=== PATIENT | female | born 1950 | race Caucasian/White ===

== ENCOUNTER 2020-01-23 09:52 | Outpatient (REF) | payer MEDICARE, MEDICAID, SELFPAY ==
[2020-01-23 12:47] LABS: Alanine Aminotransferase 20 U/L (0-31); Albumin Level 4.2 g/dL (3.5-5.0); Alkaline Phosphatase 75 U/L (39-117); Anion Gap 12 (12-20); Aspartate Amino Transferase 19 U/L (5-31); Bilirubin Total 0.5 mg/dL (0.0-1.0); Blood Urea Nitrogen 13 mg/dL (9-16); Calcium 9.7 mg/dL (8.4-10.2); Carbon Dioxide 29 mmol/L (22-29); Chloride 104 mmol/L (96-108); Cholesterol 193 mg/dL; Estimated Glomerular Filt Rate > 60; Glucose Random 88 mg/dL (60-115); HDL Cholesterol 49 mg/dL; LDL Cholesterol Calculated 129 mg/dl; Sodium 141 mmol/L (135-145); Total Protein 7.1 g/dL (6.5-8.0); Triglycerides 77 mg/dL
[2020-01-23 13:11] LABS: Rheumatoid Factor < 15.0 IU/mL (<15.0)
[2020-01-23 14:08] LABS: Erythrocyte Sedimentation Rate 4 MM/HR (0-20)
[2020-01-25 18:27] LABS: Anti Nuclear Antibody Screen NEGATIVE (NEGATIVE)
== END 2020-01-23 09:53 | disposition home or self-care (01) ==
LOC: HO.LAB 09:52
PROVIDERS: PCP Internal Medicine; Visit Provider Internal Medicine
DX: M79.7 Fibromyalgia (principal); E78.00 Pure hypercholesterolemia, unspecified; Z91.14 Patient's other noncompliance with medication regimen
CPT/HCPCS: 36415; 80053; 80061; 85652; 86038; 86039; 86431

== ENCOUNTER 2020-04-04 10:04 | Outpatient (REF) | payer MEDICARE, MEDICAID, SELFPAY ==
[2020-04-04 10:49] LABS: MANUAL DIFF FLAG NO
[2020-04-04 10:53] LABS: Basophils Percent Auto 0.3 % (0-2); Eosinophils Absolute Auto 0.2 X10*3/uL (0.0-0.4); Eosinophils Percent Auto 3.4 % (0-4); Hematocrit 41.7 % (37-47); Hemoglobin 13.2 g/dl (12.0-16.0); Imm Gran Abs Auto 0.01 X10*3/uL (0.00-0.03); Imm Gran Pct Auto 0.2 % (0.0-0.4); Lymphocytes Absolute Auto 1.8 X10*3/uL (1.2-4.9); Lymphocytes Percent Auto 30.2 % (20-40); Mean Corpuscular HGB Conc 31.7 g/dl (31.0-35.0); Mean Corpuscular Hemoglobin 27.7 pg (27.0-33.0); Mean Corpuscular Volume 87.6 fL (80-98); Mean Platelet Volume 10.9 fL (9.4-12.3); Monocytes Absolute Auto 0.4 X10*3/uL (0.1-1.2); Monocytes Percent Auto 7.1 % (2-11); Neutrophils Absolute Auto 3.4 X10*3/uL (2.0-8.3); Neutrophils Percent Auto 58.8 % (45-73); Platelet Count 264 X10*3/uL (160-400); Red Blood Count 4.76 X10*6/uL (4.20-5.50); Red Cell Distribution Width 12.5 % (11.0-16.0); White Blood Count 5.8 X10*3/uL (4.8-10.8)
[2020-04-04 11:16] LABS: Alanine Aminotransferase 20 U/L (0-31); Albumin Level 4.2 g/dL (3.5-5.0); Alkaline Phosphatase 70 U/L (39-117); Anion Gap 11 (12-20); Aspartate Amino Transferase 22 U/L (5-31); Bilirubin Total 0.5 mg/dL (0.0-1.0); Blood Urea Nitrogen 12 mg/dL (9-16); Calcium 9.8 mg/dL (8.4-10.2); Carbon Dioxide 30 mmol/L (22-29); Chloride 106 mmol/L (96-108); Estimated Glomerular Filt Rate > 60; Glucose Random 92 mg/dL (60-115); Potassium 4.8 mmol/l (3.3-5.1); Sodium 142 mmol/L (135-145)
== END 2020-04-04 10:05 | disposition home or self-care (01) ==
LOC: HO.LAB 10:04
PROVIDERS: PCP Internal Medicine; Visit Provider Internal Medicine
DX: I10 Essential (primary) hypertension (principal); J45.909 Unspecified asthma, uncomplicated; M79.671 Pain in right foot
CPT/HCPCS: 36415; 80053; 85025

== ENCOUNTER → 2020-05-10 08:53 | Outpatient (BNVA) | payer MEDICARE, MEDICAID, SELFPAY | PROVIDERS: PCP Internal Medicine; Visit Provider Student in an Organized Health Care Education/Training Program | DX: M75.81 Other shoulder lesions, right shoulder (principal) | CPT/HCPCS: 99212 ==

== ENCOUNTER 2020-05-20 10:54 | Outpatient (REF) | payer MEDICARE, MEDICAID, SELFPAY ==
--- NOTE | ~2020-05-20 | MM_ITS ---
EXAMINATION: MM SCREENING DIGITAL BREAST TOMOSYNTHESIS, BILATERAL CLINICAL INFORMATION: Screening. Asymptomatic. The lifetime risk of breast cancer based on the Tyrer-Cuzick Model is 2%. COMPARISON: Mammography: 02/21/2019, 01/21/2018, 01/08/2017 TECHNIQUE: Digital breast tomosynthesis is performed in both the craniocaudal and mediolateral oblique views along with computer-aided detection (CAD). Synthesized 2D images are generated from the tomosynthesis. FINDINGS: There are scattered areas of fibroglandular density (ACR BI-RADS breast composition Category b). There are no significant masses, abnormal calcifications, or other abnormalities. Breast tissue composition borders on predominantly fatty. There are no significant changes. The skin contours are smooth. MM/MM tomosynthesis screening BI IMPRESSION: No mammographic evidence of malignancy. ASSESSMENT: BI-RADS 1: Negative RECOMMENDATION: Routine annual mammography screening. This patient's information was entered into a reminder system with a target due date for their next mammogram.
== END 2020-05-20 10:55 | disposition home or self-care (01) ==
LOC: HO.MAMMO 10:54
PROVIDERS: PCP Internal Medicine; Visit Provider Internal Medicine
DX: Z12.31 Encounter for screening mammogram for malignant neoplasm of breast (principal)
CPT/HCPCS: 77063; 77067

== ENCOUNTER 2020-05-20 12:59 | Outpatient (REF) | payer MEDICARE, MEDICAID, SELFPAY | END 2020-05-20 13:00 | disposition home or self-care (01) | LOC: HO.LAB 12:59 | PROVIDERS: PCP Internal Medicine; Visit Provider Internal Medicine | DX: Z20.822 Contact with and (suspected) exposure to COVID-19 (principal) | CPT/HCPCS: 36415; C9803; U0003; U0005 ==

== ENCOUNTER 2020-06-06 11:57 | Outpatient (REF) | payer MEDICARE, MEDICAID, SELFPAY | END 2020-06-06 11:58 | disposition home or self-care (01) | LOC: HO.LAB 11:57 | PROVIDERS: Visit Provider Internal Medicine | DX: Z20.822 Contact with and (suspected) exposure to COVID-19 (principal) | CPT/HCPCS: 36415; C9803; U0003; U0005 ==

== ENCOUNTER 2020-07-17 10:22 | Outpatient (REF) | payer MEDICARE, MEDICAID, SELFPAY ==
[2020-07-17 10:54] LABS: COVID-19 Test Negative (Negative); IDNOW Serial# 55D5AD1C
== END 2020-07-17 10:23 | disposition home or self-care (01) ==
LOC: HO.LAB 10:22
PROVIDERS: Visit Provider Internal Medicine
DX: Z20.822 Contact with and (suspected) exposure to COVID-19 (principal)
CPT/HCPCS: 36415; 87635; C9803

== ENCOUNTER 2020-08-13 10:00 | Outpatient (RCR) | payer MEDICARE, MEDICAID, SELFPAY | END 2021-04-07 08:03 | disposition home or self-care (01) | LOC: HO.PT 10:00 | PROVIDERS: Visit Provider Podiatrist Foot & Ankle Surgery | DX: S92.811S Other fracture of right foot, sequela (principal); S99.921S Unspecified injury of right foot, sequela; M79.671 Pain in right foot | CPT/HCPCS: 97110; 97140; 97161; 97530 ==

== ENCOUNTER 2020-09-05 12:31 | Outpatient (REF) | payer MEDICARE, MEDICAID, SELFPAY | END 2020-09-05 12:32 | disposition home or self-care (01) | LOC: HO.LAB 12:31 | PROVIDERS: Visit Provider Internal Medicine | DX: Z20.822 Contact with and (suspected) exposure to COVID-19 (principal) | CPT/HCPCS: C9803; U0003; U0005 ==

== ENCOUNTER 2020-09-06 11:00 | Outpatient (RCR) | payer MEDICARE, MEDICAID, SELFPAY ==
--- NOTE | 2020-06-07 11:12 | MHC.PT.EP ---
[facility] [place] Office [place] Office [place] Office [address] [phone] F: [phone] F: [phone] F: [phone] F: [phone] Physical Therapy Plan of Care Date of Evaluation: 06/07/20 Date of Surgery: NA Diagnosis: R shoulder pain Assessment: Jenny is a 70 year old female was referred to PT for R shoulder pain following a fall about a year back. Examination reveals 8/10 pain in R shoulder at rest and with movements, TTP over cervical spine, R UE and R medial border of scapula, decreased shoulder and cervical ROM, decreased muscle strength and altered posture. These impairments are limiting with her ADLS- she has been modifying the way she performs them due to pain. Pt's symptoms suggestive of possible cervical derangement. She would benefit from therapy to decrease pain, improve ROM, increase muscle strength and postural correction so as to enable her to return to activities like dressing, cleaning, cooking and grocery shopping without pain. Frequency and Duration: The patient will be seen 2/week for 5 weeks Short Term Goals: 1. Pt will have 50% decrease in pain which will enable her to tolerate sitting for 30 minutes in 2 weeks. 2. Pt will have all shoulder ROM WNL so as to enable to her dress without modifications in 3 weeks. Systems Analyst Engineer Goals: 1. Pt will be able to perform self care activities like dressing, combing her pain with a pain no more than 2/10 on 4 weeks. 2. Pt will return to PLOF and be independent with all ADLS in 5 weeks. Treatment Plan: Modalities to reduce pain, spasms and effusion. Manual therapy to restore motion and function. Therapeutic exercise to improve strength and flexibility. Neuromuscular re-education for posture and balance. Therapeutic activities to return to functional activities of daily living. Electronically signed by: Marcela Lai DPT Please sign and return to therapist. Thank you for your referral.
--- NOTE | 2020-09-28 13:30 | MHC.PT.DC ---
[facility] [place] Office [place] Office [place] Office [address] Aniceto Dorantes [address] [phone] F: [phone] F: [phone] F: [phone] F: [phone] Physical Therapy Discharge Report Diagnosis: R shoulder pain Date of Surgery: NA Date of Evaluation: 06/07/20 Date of Discharge: 09/28/20 Treatments to Date: 19 Cancellations to Date: 0 No Shows to Date: 0 Discharge Status: Improved Function Independent with HEP Discharge Summary: Jenny has made tremendous progress and is independent with her HEPs. She is aware of exercises needed for symptom management. Jenny is going to [place] for a month and half. Due to this she has been d/c from therapy and was advised to continue performing her HEP for symptom management and maintenance. Electronically signed by: Marcela Lai PT DPT Please sign and return to therapist. Thank you for your referral.
== END 2020-09-28 13:31 | disposition home or self-care (01) ==
LOC: HO.PT 11:00
PROVIDERS: PCP Internal Medicine; Visit Provider Student in an Organized Health Care Education/Training Program
DX: M75.81 Other shoulder lesions, right shoulder (principal)
CPT/HCPCS: 97012; 97110; 97112; 97140; 97161

== ENCOUNTER 2020-11-20 10:56 | Outpatient (REF) | payer MEDICARE, MEDICAID, SELFPAY ==
[2020-11-20 12:00] LABS: MANUAL DIFF FLAG NO
[2020-11-20 12:09] LABS: Basophils Percent Auto 0.3 % (0-2); Eosinophils Absolute Auto 0.3 X10*3/uL (0.0-0.4); Eosinophils Percent Auto 4.7 % (0-4); Hematocrit 44.2 % (37-47); Imm Gran Abs Auto 0.02 X10*3/uL (0.00-0.03); Imm Gran Pct Auto 0.3 % (0.0-0.4); Lymphocytes Percent Auto 35.2 % (20-40); Mean Corpuscular HGB Conc 31.7 g/dl (31.0-35.0); Mean Corpuscular Hemoglobin 27.8 pg (27.0-33.0); Mean Corpuscular Volume 87.9 fL (80-98); Mean Platelet Volume 11.4 fL (9.4-12.3); Monocytes Absolute Auto 0.5 X10*3/uL (0.1-1.2); Neutrophils Percent Auto 51.5 % (45-73); Platelet Count 275 X10*3/uL (160-400); Red Blood Count 5.03 X10*6/uL (4.20-5.50); Red Cell Distribution Width 12.3 % (11.0-16.0); White Blood Count 5.8 X10*3/uL (4.8-10.8)
[2020-11-20 12:55] LABS: Alanine Aminotransferase 25 U/L (0-31); Albumin Level 4.2 g/dL (3.5-5.0); Alkaline Phosphatase 79 U/L (39-117); Anion Gap 12 (12-20); Aspartate Amino Transferase 17 U/L (5-31); Bilirubin Total 0.6 mg/dL (0.0-1.0); Blood Urea Nitrogen 15 mg/dL (9-16); Calcium 10.1 mg/dL (8.4-10.2); Carbon Dioxide 30 mmol/L (22-29); Chloride 104 mmol/L (96-108); Cholesterol 196 mg/dL; Estimated Glomerular Filt Rate > 60; Glucose Random 91 mg/dL (60-115); HDL Cholesterol 51 mg/dL; LDL Cholesterol Calculated 129 mg/dl; Potassium 4.7 mmol/L (3.3-5.1); Sodium 141 mmol/L (135-145); Total Protein 7.2 g/dL (6.5-8.0); Triglycerides 81 mg/dL
== END 2020-11-20 10:57 | disposition home or self-care (01) ==
LOC: HO.LAB 10:56
PROVIDERS: PCP Internal Medicine; Visit Provider Internal Medicine
DX: Z00.00 Encounter for general adult medical examination without abnormal findings (principal); E78.00 Pure hypercholesterolemia, unspecified; I10 Essential (primary) hypertension; R74.01 Elevation of levels of liver transaminase levels; Z86.010 Personal history of colon polyps
CPT/HCPCS: 36415; 80053; 80061; 85025

== ENCOUNTER → 2021-02-13 11:06 | Outpatient (BNVA) | payer MEDICARE, MEDICAID, SELFPAY | PROVIDERS: PCP Internal Medicine; Referring Provider Internal Medicine; Visit Provider Nurse Practitioner | DX: D12.6 Benign neoplasm of colon, unspecified (principal) | CPT/HCPCS: 99202 ==

== ENCOUNTER 2021-04-08 10:29 | Outpatient (REF) | payer MEDICARE, MEDICAID, SELFPAY ==
[2021-04-08 13:52] LABS: Binax Internal Control QC Valid; Binax Lot number: 9864; Binax Now Covid-19 Ag Negative (Negative)
== END 2021-04-08 10:30 | disposition home or self-care (01) ==
LOC: HO.LAB 10:29
PROVIDERS: Visit Provider Internal Medicine
DX: Z20.822 Contact with and (suspected) exposure to COVID-19 (principal)
CPT/HCPCS: 36415

== ENCOUNTER 2021-05-28 07:33 | Outpatient (REF) | payer MEDICARE, MEDICAID, SELFPAY ==
--- NOTE | ~2021-05-28 | MM_ITS ---
EXAMINATION: MM SCREENING DIGITAL BREAST TOMOSYNTHESIS, BILATERAL CLINICAL INFORMATION: Screening. Asymptomatic. The lifetime risk of breast cancer based on the Tyrer-Cuzick Model is 3%. COMPARISON: Mammography: 01/17/2021, 02/21/2019, 01/21/2018 TECHNIQUE: Digital breast tomosynthesis is performed in both the craniocaudal and mediolateral oblique views along with computer-aided detection (CAD). Synthesized 2D images are generated from the tomosynthesis. FINDINGS: There are scattered areas of fibroglandular density (ACR BI-RADS breast composition Category b). Breast tissue composition borders on predominantly fatty. There are no significant masses, abnormal calcifications, or other abnormalities. Parenchymal pattern is similar to prior studies. There is no developing density or architectural abnormality. The axilla and skin contours are unremarkable. No significant changes. MM/MM tomosynthesis screening BI IMPRESSION: No mammographic evidence of malignancy. ASSESSMENT: BI-RADS 1: Negative RECOMMENDATION: Routine annual mammography screening. This patient's information was entered into a reminder system with a target due date for their next mammogram.
== END 2021-05-28 07:34 | disposition home or self-care (01) ==
LOC: HO.MAMMO 07:33
PROVIDERS: Visit Provider Internal Medicine
DX: Z12.31 Encounter for screening mammogram for malignant neoplasm of breast (principal)
CPT/HCPCS: 77063; 77067

== ENCOUNTER 2021-06-05 10:32 | Outpatient (REF) | payer MEDICARE, MEDICAID, SELFPAY ==
[2021-06-05 11:04] LABS: MANUAL DIFF FLAG NO
[2021-06-05 11:12] LABS: Basophils Percent Auto 0.3 % (0-2); Eosinophils Absolute Auto 0.2 X10*3/uL (0.0-0.4); Eosinophils Percent Auto 2.4 % (0-4); Hematocrit 44.5 % (37.0-47.0); Hemoglobin 13.8 g/dl (12.0-16.0); Imm Gran Abs Auto 0.03 X10*3/uL (0.00-0.03); Imm Gran Pct Auto 0.5 % (0.0-0.4); Lymphocytes Absolute Auto 1.9 X10*3/uL (1.2-4.9); Lymphocytes Percent Auto 31.4 % (20-40); Mean Corpuscular Hemoglobin 27.3 pg (27.0-33.0); Mean Corpuscular Volume 88.1 fL (80.0-98.0); Mean Platelet Volume 10.1 fL (9.4-12.3); Monocytes Absolute Auto 0.4 X10*3/uL (0.1-1.2); Monocytes Percent Auto 7.1 % (2-11); Neutrophils Absolute Auto 3.6 x10*3/uL (2.0-8.3); Neutrophils Percent Auto 58.3 % (45-73); Platelet Count 248 X10*3/uL (160-400); Red Blood Count 5.05 X10*6/uL (4.20-5.50); White Blood Count 6.2 X10*3/uL (4.8-10.8)
[2021-06-05 12:00] LABS: Alanine Aminotransferase 18 U/L (0-31); Albumin Level 4.1 g/dL (3.5-5.0); Alkaline Phosphatase 79 U/L (39-117); Anion Gap 8 (12-20); Aspartate Amino Transferase 19 U/L (5-31); Bilirubin Total 0.6 mg/dL (0.0-1.0); Blood Urea Nitrogen 12 mg/dL (9-16); Carbon Dioxide 32 mmol/L (22-29); Chloride 105 mmol/L (96-108); Cholesterol 189 mg/dL; Estimated Glomerular Filt Rate > 60; Glucose Random 92 mg/dL (60-115); HDL Cholesterol 53 mg/dL; LDL Cholesterol Calculated 126 mg/dl; Potassium 4.9 mmol/L (3.3-5.1); Sodium 140 mmol/L (135-145); Total Protein 7.2 g/dL (6.5-8.0); Triglycerides 54 mg/dL
== END 2021-06-05 10:33 | disposition home or self-care (01) ==
LOC: HO.LAB 10:32
PROVIDERS: PCP Internal Medicine; Visit Provider Internal Medicine
DX: E78.00 Pure hypercholesterolemia, unspecified (principal); I10 Essential (primary) hypertension; J45.909 Unspecified asthma, uncomplicated; M25.511 Pain in right shoulder
CPT/HCPCS: 36415; 80053; 80061; 85025

== ENCOUNTER 2021-07-24 11:00 | Outpatient (RCR) | payer MEDICARE, MEDICAID, SELFPAY ==
[2021-05-27 10:10] VITALS: BP 173/79; PULSE 65
== END 2021-07-24 12:04 | disposition home or self-care (01) ==
LOC: HO.PT 11:00
PROVIDERS: Visit Provider Podiatrist Foot & Ankle Surgery
DX: M79.671 Pain in right foot (principal); M20.31 Hallux varus (acquired), right foot
CPT/HCPCS: 97110; 97112; 97140; 97161; 97530

== ENCOUNTER 2021-09-02 11:37 | Day surgery (SDC) | payer MEDICARE, MEDICAID, SELFPAY ==
[2021-09-02 12:22] VITALS: BMI 26.9
--- NOTE | 2021-09-02 12:25 | MHC.SHP ---
Pre-Procedural Eval Section A Date of Service: 09/02/21 Section B Chief Complaint: benign neoplasm of colon Relevant Family History (Specify if Yes): No Relevant Social History: None Present Medications: see Short Stay Collaborative assessment Medical History: Significant History (Asthma Fibromyalgia Osteopenia Rotator cuff tendinitis Depression Hypertension Insomnia History of tubular adenomas) History of Previous Operations: Relevant previous surgery/procedure and date(s) ( Hysterectomy Tubal ligation) Allergies: Allergies Allergy/AdvReac Type Severity Reaction Status Date / Time lisinopril Allergy Intermediate cough Verified 08/28/21 11:33 zolpidem [Ambien] Allergy Intermediate droggy Verified 08/28/21 11:33 Review of Systems Sugical H&P ROS: Negative: Constitution, Cardiovascular, Respiratory, Neurological, Psychiatric, Hem-Onc, Allergic/Immunologic, Gastrointestinal, Genitourinary, Musculoskeletal, Integumentary, Endocrine and Eyes/Ears/Nose/Throat Exam Surgical H&P Exam: Normal: HEENT, Normal: Heart, Normal: Lungs, Normal: Extremities, Normal: Abdomen, Normal: Skin and Normal: Neurological Plan Diagnosis/Plan: Unchanged I have reviewed the history and physical and performed a pertinent physical examination on my patient. No changes have occurred unless specified.
[2021-09-02 12:36] VITALS: BP 156/68; PULSE 57; RESP 18; TEMP 36.5; O2SAT 96
--- NOTE | 2021-09-02 14:08 | P.OP_ITS ---
Operative Note Operative Note Date of Service: 09/02/21 Narrative: Operative Information Procedure Description: Colonoscopy Indication: colon screening, hx of colon polyps Anesthesia: MAC COLONOSCOPY Instrument: Olympus variable stiffness pediatric scope 190L Colonoscopy Monitoring: Vital signs and clinical assessment, continuous EKG monitoring, Pulse oximetry, Carbon Dioxide monitoring and blood pressure monitoring were done throughout the procedure. Colon withdrawal time was 9 minutes. Procedure: The patient was placed in the left lateral decubitis position and pre-procedure medications were administered. After a digital rectal examination of the ano-rectum, the video colonoscope was inserted into the rectum and advanced through the colon to the cecum/TI. The colonoscope was slowly withdrawn in a retrograde panoramic fashion and the colon mucosa was carefully examined including a retroflexed view of the rectum. Findings and interventions are described below. Procedure Difficulty: easy Findings: Terminal Ileum-normal Cecum:x 2 sessile polyps 10 mm, one removed with cold snare and the other with cold forceps Ascending Colon: x1 sessile polyp 7-9 mm removed with cold forceps Transverse Colon -normal Descending Colon: x1 sessile polyp 8-10 mm removed with cold snare Sigmoid Colon: moderate diverticulosis Rectum: Retroflexion with small internal hemorrhoids, grade I Anorectum - normal Colon preparation: [place] Bowel Preparation Scale Right colon; 2 Transverse colon: 2 Left colon; 2 (0 = Unprepared colon segment with mucosa not seen due to solid stool that cannot be cleared. 1 = Portion of mucosa of the colon segment seen, but other areas of the colon segment not well seen due to staining, residual stool and/or opaque liquid. 2 = Minor amount of residual staining, small fragments of stool and/or opaque liquid, but mucosa of colon segment seen well. 3 = Entire mucosa of colon segment seen well with no residual staining, small fragments of stool or opaque liquid) Impression and Post Procedure Diagnosis: polyps internal hemorrhoids diverticular disease Plan: High fiber diet leaflet Avoid straining at stool, epsom salts and sitz bath, anusol supps or cream Repeat Colonoscopy in 3 years due to polyps or earlier if clinically indicated Above findings were reviewed with the patient and relevant handouts were provided if indicated.
--- NOTE | 2021-09-02 14:08 | PM.OP ---
Brief Operative Note Date of Service: 09/02/21 Pre-op diagnosis: colon screening, hx of polyps Post-op diagnosis: same Procedure: see op note Surgeon: Kaela Tristan MD Anesthesia: MAC Was an Fabric Worker Leader used for this Procedure?: No Estimated blood loss (mL): 0 Condition: stable Disposition: PACU
--- NOTE | 2021-09-02 14:18 | P.CONAN_ITS ---
HPI - Anesthesia Eval Consult details Narrative: 71 female for colonoscopy [facility] Active Problems Active Problems: All Active Problems (Updated 08/28/21 @ 11:33 by Anastasiia Luke RN) Right rotator cuff tendonitis (Acute) Tubular adenoma of colon (Acute) HTN (hypertension), benign (Acute) Depression (Acute) Insomnia (Acute) Past Medical History Medical History (Updated 08/28/21 @ 11:33 by Anastasiia Luke RN) Asthma Fibromyalgia GERD (gastroesophageal reflux disease) History of depression Osteopenia Family History Family History Mother Diabetes HTN (hypertension) Alzheimer disease Family history of problems with anesthesia: No Surgical History Surgical History (Updated 08/28/21 @ 11:33 by Anastasiia Luke RN) H/O foot surgery Hx of section Hx of colonoscopy Hx of esophagogastroduodenoscopy Hx of hysterectomy Hx of tubal ligation History of Problems with Anesthesia: No Social History Social History (Updated 05/10/20 @ 09:05 by Sharri Reagan CMA) Alcohol intake: current Patient Tobacco Use Status: Never used Tobacco Use of substances other than those prescribed or required for medical reasons: No Have you been hit, kicked, punched, or otherwise hurt by someone within the past year? If so, by whom?: No Advance Directives: No Advance Directives Information Provided: Yes Nutrition Risks: No Nutritional Risk Meds Allergies Allergy/AdvReac Type Severity Reaction Status Date / Time lisinopril Allergy Intermediate cough Verified 08/28/21 11:33 zolpidem [Ambien] Allergy Intermediate droggy Verified 08/28/21 11:33 Home Medications Medication Instructions Recorded Confirmed Last Taken Type hydrochlorothiazide 12.5 mg tablet 12.5 mg PO DAILY 05/10/20 08/28/21 Unknown History ibuprofen 600 mg tablet 600 mg PO Q8H PRN 05/10/20 08/28/21 Unknown History losartan 50 mg tablet 50 mg PO DAILY 05/10/20 08/28/21 Unknown History omeprazole 40 mg capsule,delayed 40 mg PO DAILY 05/10/20 08/28/21 Unknown History release albuterol sulfate 90 mcg/actuation 0 mcg INHALATION 02/13/21 Unknown History aerosol inhaler fluticasone 250 mcg-salmeterol 50 1 ea INHALATION BID 02/13/21 08/28/21 Unknown History mcg/dose blistr powdr for inhalation (John Zimmer) hydroxyzine HCl 25 mg tablet 25 mg PO TID 02/13/21 08/28/21 Unknown History amlodipine 5 mg tablet 1 tab PO DAILY 08/28/21 08/28/21 Unknown History fluticasone propionate 110 2 puff PO BID 08/28/21 08/28/21 Unknown History mcg/actuation HFA aerosol inhaler (Flovent HFA) Exam Exam Date and Time: September 02, 2021 1418 Height,Weight and Vital Signs: Height 5 ft 3 in Weight 152 lb Last Vital Signs Temp 97.7 F 09/02/21 12:36 Pulse 57 09/02/21 12:36 Resp 18 09/02/21 12:36 BP 156/68 H 09/02/21 12:36 Pulse Ox 96 09/02/21 12:36 Airway Mallampati Class: II TM Dist: >3cm Neck ROM: Full Loose/Missing/Broken Teeth: Yes Assessment and Plan Assessment Anesthesia Assessment: Anesthesia Plan Discussed and Chart Reviewed Final Anesthetic Review Family History of Problems with Anesthesia: No History of Problems with Anesthesia: No NPO: Yes ASA Class: II Final Preanesthetic Review: No Changes in Pt Med Stat, Meds/Allgs Chart Reviewed, Consent Obtained/Reviewed and Anes Risks/Benef Reviewed Patient Risk: Low Procedure Risk: Low Anesthetic Plan Anesthetic Plan: MAC: Disposition: Standard PACU
[2021-09-02 14:44] VITALS: BP 97/49; PULSE 58; RESP 16; TEMP 36.6; O2SAT 98
[2021-09-02 15:00] VITALS: BP 119/57; PULSE 57; RESP 16; O2SAT 97
[2021-09-02 15:15] VITALS: BP 122/51; PULSE 51; RESP 16; O2SAT 97
[2021-09-02 15:30] VITALS: BP 135/52; PULSE 52; RESP 16; TEMP 36.6; O2SAT 98
== END 2021-09-02 16:01 | disposition home or self-care (01) ==
PROVIDERS: PCP Internal Medicine; Visit Provider Internal Medicine Gastroenterology
PROC: 0DJD8ZZ Inspection of Lower Intestinal Tract, Via Natural or Artificial Opening Endoscopic (ICD-10-PCS; CPT 45378; principal; 2021-09-02 12:50)
DX: Z12.11 Encounter for screening for malignant neoplasm of colon (principal); Z86.010 Personal history of colon polyps; D12.0 Benign neoplasm of cecum; D12.2 Benign neoplasm of ascending colon; D12.4 Benign neoplasm of descending colon; K57.30 Diverticulosis of large intestine without perforation or abscess without bleeding; K64.0 First degree hemorrhoids; J45.909 Unspecified asthma, uncomplicated; I10 Essential (primary) hypertension; M79.7 Fibromyalgia; M85.80 Other specified disorders of bone density and structure, unspecified site; G47.00 Insomnia, unspecified; F32.A Depression, unspecified; Z79.51 Long term (current) use of inhaled steroids; Z79.899 Other long term (current) drug therapy; Z88.8 Allergy status to other drugs, medicaments and biological substances
CPT/HCPCS: 45385; 45380; 88305

== ENCOUNTER 2021-09-10 11:00 | Outpatient (RCR) | payer MEDICARE, MEDICAID, SELFPAY | END 2021-11-06 07:49 | disposition home or self-care (01) | LOC: HO.PT 11:00 | PROVIDERS: PCP Internal Medicine; Visit Provider Internal Medicine | DX: M25.511 Pain in right shoulder (principal) | CPT/HCPCS: 97110; 97140; 97162 ==

== ENCOUNTER → 2021-09-18 08:52 | Outpatient (BNVA) | payer MEDICARE, MEDICAID, SELFPAY | PROVIDERS: PCP Internal Medicine; Visit Provider Nurse Practitioner | DX: D12.6 Benign neoplasm of colon, unspecified (principal) | CPT/HCPCS: 99212 ==

== ENCOUNTER 2021-09-25 11:28 | Outpatient (REF) | payer OTHER, SELFPAY ==
--- NOTE | ~2021-09-25 | XR_ITS ---
EXAMINATION: XR SHOULDER, RIGHT XR CERVICAL SPINE CLINICAL INFORMATION: Pain. COMPARISON: None TECHNIQUE: Right shoulder 4 views. Cervical spine 5 views. FINDINGS: CERVICAL SPINE: There is normal cervical lordosis. The vertebral heights and alignment appear normal. There is loss of C4-C5, C5-C6. On oblique views of the neural foramina are patent. No lytic or sclerotic process seen. The prevertebral soft tissues are normal. Right shoulder: The there is no visible acute fracture, dislocation or subluxation seen. No bony erosive changes. No loose bodies. The soft tissues are normal. XR/XR cervical spine min 6V IMPRESSION: Degenerative disc changes C3-C4, C4-C5 disc levels with mild cervical spondylosis. No visible acute fracture or dislocation seen. Unremarkable right shoulder exam
--- NOTE | ~2021-09-25 | XR_ITS ---
EXAMINATION: XR SHOULDER, RIGHT XR CERVICAL SPINE CLINICAL INFORMATION: Pain. COMPARISON: None TECHNIQUE: Right shoulder 4 views. Cervical spine 5 views. FINDINGS: CERVICAL SPINE: There is normal cervical lordosis. The vertebral heights and alignment appear normal. There is loss of C4-C5, C5-C6. On oblique views of the neural foramina are patent. No lytic or sclerotic process seen. The prevertebral soft tissues are normal. Right shoulder: The there is no visible acute fracture, dislocation or subluxation seen. No bony erosive changes. No loose bodies. The soft tissues are normal. XR/XR shoulder RT min 2V IMPRESSION: Degenerative disc changes C3-C4, C4-C5 disc levels with mild cervical spondylosis. No visible acute fracture or dislocation seen. Unremarkable right shoulder exam
== END 2021-09-25 11:29 | disposition home or self-care (01) ==
LOC: HO.XRAY 11:28
PROVIDERS: PCP Family Medicine; Visit Provider Family Medicine
DX: M25.511 Pain in right shoulder (principal); M54.2 Cervicalgia
CPT/HCPCS: 72052; 73030

== ENCOUNTER 2021-09-30 13:50 | Outpatient (REF) | payer OTHER, SELFPAY ==
--- NOTE | ~2021-09-30 | XR_ITS ---
EXAMINATION: XR FOOT, LEFT CLINICAL INFORMATION: Pain COMPARISON: None TECHNIQUE: AP, lateral, and oblique views of the left foot. FINDINGS: Bone alignment is normal. No fracture or dislocation is seen. Joint spaces are normal. There are calcaneal spurs. XR/XR foot LT min 3V IMPRESSION: Calcaneal spurs otherwise unremarkable exam
--- NOTE | ~2021-09-30 | MM_ITS ---
EXAMINATION: BONE DENSITOMETRY CLINICAL INDICATION: Specified disorders of bone density and structure. COMPARISON: Previous BD dated 01/21/2018 and baseline BD dated 04/12/2009. TECHNIQUE: Using a [employer] DXA System (software version: 13.1) manufactured by [employer], dual-energy x-ray absorptiometry was performed of the lumbar spine and left hip. The images are of good technical quality. Summary results are attached. FINDINGS: AP SPINE L1-L3 (excluding L4): The data of L1-L4 has been changed to exclude the L4 vertebral body, because degenerative changes at this level may cause overestimation of lumbar spine density. Current: BMD 0.930 g/cm2, Z-score -0.4, T-score -2.0, osteopenia, 3.6% decrease from previous, 7.8% decrease from baseline (<5% change is not significant). Prior: BMD 0.965 g/cm2. Baseline: BMD 1.009 g/cm2. LEFT FEMUR, NECK: Current: BMD 0.770 g/cm2, Z-score -0.3, T-score -1.9, osteopenia. Prior: BMD 0.774 g/cm2. Baseline: BMD 0.895 g/cm2. LEFT FEMUR, TOTAL: Current: BMD 0.869 g/cm2, Z-score 0.3, T-score -1.1, osteopenia, 4.5% decrease from previous, 12.8% decrease from baseline (<5% change is not significant). Prior: BMD 0.910 g/cm2. Baseline: BMD 0.997 g/cm2. IDENTIFIED RISK FACTORS: Early menopause, secondary osteoporosis, bilateral oophorectomy. HISTORY OF FRACTURE: None listed. MEDICATIONS: None listed. MM/XR DEXA axial skeleton IMPRESSION: 1. DIAGNOSIS: Osteopenia based on the lowest T-score value of -2.0 in the lumbar spine applying World Health Organization criteria. 2. 10-YEAR FRACTURE RISK PREDICTION, FRAX: Major osteoporotic fracture (clinical spine, forearm, hip or shoulder) 6.8%. Hip fracture 1.4%. 3. Treatment Recommendations: NOF guidelines recommend consideration for treatment in postmenopausal women and men age 50 and older presenting with the following: -A hip or vertebral (clinical or morphometric) fracture. -T-score less than or equal to -2.5 at the femoral neck or spine after appropriate evaluation to exclude secondary causes. -Low bone mass at the hip or spine and a 10-year fracture probability by FRAX of greater than or equal to 3% for hip fracture or greater than or equal to 20% for major osteoporotic fracture based on the [place] adapted WHO algorithm. 4. Other Recommendations: All treatment decisions require clinical judgment and consideration of individual patient factors, including patient preferences, comorbidities, previous drug use, risk factors not captured in the FRAX model (e.g. frailty, falls, vitamin D deficiency, increased bone turnover, interval significant decline in bone density) and possible under or overestimation of fracture risk by FRAX. Additional medical evaluation for secondary cause of low bone mineral density may be appropriate. FUTURE SCAN RECOMMENDATION: People with diagnosed cases of osteoporosis or at high risk for fracture should have regular bone mineral density tests. For patients eligible for Medicare, routine testing is allowed once every 2 years. The testing frequency can be increased to one year for patients who have rapidly progressing disease, those who are receiving or discontinuing medical therapy to restore bone mass, or have additional risk factors.
== END 2021-09-30 13:51 | disposition home or self-care (01) ==
LOC: HO.MAMMO 13:50
PROVIDERS: Absent Provider Emergency Medicine; PCP Family Medicine; Visit Provider Family Medicine
DX: Z13.820 Encounter for screening for osteoporosis (principal); M79.672 Pain in left foot; M85.80 Other specified disorders of bone density and structure, unspecified site; Z78.0 Asymptomatic menopausal state
CPT/HCPCS: 73630; 77080

== ENCOUNTER 2021-11-10 15:23 | Outpatient (REF) | payer OTHER, SELFPAY ==
--- NOTE | ~2021-11-10 | XR_ITS ---
EXAMINATION: XR ANKLE, LEFT CLINICAL INFORMATION: Left ankle pain COMPARISON: Previous x-ray April 2019 TECHNIQUE: AP, lateral, and mortise views of the left ankle. FINDINGS: Bone alignment is normal. No fracture or dislocation is seen. The ankle mortise is normal. There are large calcaneal spurs. XR/XR ankle LT min 3V IMPRESSION: Large calcaneal spurs.
== END 2021-11-10 15:24 | disposition home or self-care (01) ==
LOC: HO.XRAY 15:23
PROVIDERS: Absent Provider Family Medicine; PCP Family Medicine; Visit Provider Emergency Medicine
DX: M25.572 Pain in left ankle and joints of left foot (principal)
CPT/HCPCS: 73610

== ENCOUNTER 2021-12-29 15:09 | Outpatient (REF) | payer OTHER, SELFPAY ==
--- NOTE | ~2021-12-29 | XR_ITS ---
EXAMINATION: XR ANKLE, RIGHT XR FOOT, RIGHT CLINICAL INFORMATION: Contusion. Fall 2 days ago. COMPARISON: None TECHNIQUE: AP, lateral, and mortise views of the right ankle and AP, lateral, and oblique views of the right foot. FINDINGS: RIGHT ANKLE: There is soft tissue swelling at the ankle with an ankle joint effusion. No fracture or malalignment. The ankle mortise is symmetric. Soft tissues are edematous. Small enthesopathic spurs are present at the Achilles tendon insertion and plantar fascial origin on the calcaneus. Calcium deposition is evident within the plantar fascia proximally. Subtalar and talocrural joint spaces appear well preserved. RIGHT FOOT: Diffuse soft tissue swelling at the foot. There is medial subluxation of the hallux proximal phalanx at the MTP joint with resultant widening of the 1st interspace. A small metallic fragment is evident within the lateral margin of the 1st metatarsal head, possibly a soft tissue anchor. There is a 6 mm chronic osseous fragment at the lateral margin of the hallux proximal phalangeal base. There is mild osteoarthritis in the 1st MTP joint with nonuniform joint space narrowing and marginal osteophytes. MTP joints are otherwise well preserved. There is mild multifocal osteoarthritis in the interphalangeal joints, most pronounced at the 3rd toe DIP joint. TMT joints and naviculocuneiform joints are unremarkable. No erosions. XR/XR ankle RT 2V IMPRESSION: Diffuse soft tissue swelling in the ankle and foot. No acute fractures. Medial subluxation of the hallux proximal phalanx at the MTP joint, raising the possibility of a lateral collateral ligament injury. Metal fragment in the lateral aspect of the 1st metatarsal head and a chronic osseous fragment at the lateral margin of the proximal phalangeal base suggest prior ligamentous injury and/or repair in this region. 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
== END 2021-12-29 15:10 | disposition home or self-care (01) ==
LOC: HO.XRAY 15:09
PROVIDERS: Absent Provider Family Medicine; PCP Family Medicine; Visit Provider Emergency Medicine
DX: S90.01XS Contusion of right ankle, sequela (principal); X58.XXXD Exposure to other specified factors, subsequent encounter
CPT/HCPCS: 73600; 73620

== ENCOUNTER 2022-01-06 12:55 | Outpatient (REF) | payer OTHER, SELFPAY ==
--- NOTE | ~2022-01-06 | XR_ITS ---
EXAMINATION: XR KNEE, RIGHT CLINICAL INFORMATION: Pain. COMPARISON: None TECHNIQUE: Four views of the right knee. FINDINGS: There is mild loss of medial and patellofemoral compartment joint space. The lateral compartment joint space is maintained normal. No visible acute fracture, dislocation or subluxation seen. There is periarticular spurring in the right lateral patella. The soft tissues are normal. XR/XR knee RT 4V IMPRESSION: Mild degenerative changes medial and patellofemoral compartment. No visible acute fracture, dislocation or subluxation seen.
== END 2022-01-06 12:56 | disposition home or self-care (01) ==
LOC: HO.XRAY 12:55
PROVIDERS: PCP Family Medicine; Visit Provider Family Medicine
DX: M25.561 Pain in right knee (principal)
CPT/HCPCS: 73564

== ENCOUNTER 2022-01-15 14:17 | Outpatient (REF) | payer OTHER, SELFPAY ==
--- NOTE | ~2022-01-15 | CT_ITS ---
EXAMINATION: CT HEAD WITHOUT CONTRAST CLINICAL INFORMATION: Status post fall, dizziness COMPARISON: None TECHNIQUE: Contiguous axial imaging was performed from the skull base to vertex without intravenous administration of contrast. This CT examination was performed using dose optimization techniques as appropriate, variously including the following: *Automated exposure control *Adjustment of mA and/or kV according to patient size (this includes techniques or standardized protocols for targeted exams where dose is matched to indication/reason for exam; i.e. extremities or head) *Use of iterative reconstruction technique DLP: 716 mGy-cm FINDINGS: There is a left frontoparietal low-density subdural fluid collection with scattered areas of hyperdense areas consistent with hemorrhage. The findings as a subacute on chronic left subdural hematoma. Mild mass effect seen on the left frontal cortical sulci. There is no midline shift. The carver to white matter differentiation is maintained normal. The lateral ventricles are symmetrical in size and configuration but slightly enlarged. Bone windows reveal no calvarial abnormality. Bilateral paranasal sinuses and mastoid air cells are well-aerated. CT/CT head/brain wo IV con IMPRESSION: Left frontoparietal acute on chronic subdural hematoma. No mass effect or midline shift. Results called to Tierra Milan by phone in ED at 3:20 PM.
== END 2022-01-15 14:18 | disposition home or self-care (01) ==
LOC: HO.CT 14:17
PROVIDERS: Visit Provider Family Medicine
DX: S09.90XD Unspecified injury of head, subsequent encounter (principal); Z91.81 History of falling
CPT/HCPCS: 70450

== ENCOUNTER 2022-01-15 14:54 | Emergency (ER) | payer OTHER, SELFPAY ==
--- NOTE | 2022-01-15 07:17 | ECG_ITS ---
Test Reason : HEAD BLLED Blood Pressure : / mmHG Vent. Rate : 062 BPM Atrial Rate : 062 BPM P-R Int : 184 ms QRS Dur : 090 ms QT Int : 412 ms P-R-T Axes : 020 -40 -04 degrees QTc Int : 418 ms Normal sinus rhythm Left anterior fascicular block Inferior leads Moderate voltage criteria for LVH, may be normal variant ( R in aVL , Catalino product ) Nonspecific ST abnormality Abnormal ECG No significant changes seen Referred By: Jenifer Ayers Electronically Signed By:JOSE FERMIN MD
[2022-01-15 14:59] VITALS: BP 178/76; PULSE 78; RESP 18; TEMP 36.4; O2SAT 98; BMI 27.1
--- NOTE | 2022-01-15 15:09 | ED.FALL ---
HPI - Fall General Chief Complaint: Stroke Stated Complaint: STROKE Time Seen by Provider: 01/15/22 15:03 Source: patient and overhauler History of Present Illness HPI Narrative: 71-year-old female without significant past medical history other than hypertension is referred over from the outpatient imaging suite when she was noted to have a subdural hematoma on CT scan. On questioning the patient she states that she was on a cruise on 12/27 and dancing when she slipped and fell backwards striking her head without loss of consciousness. Since that time patient states that she has had a bump on her scalp and has been attempting to get an head CT for almost 3 weeks. Patient states he finally got her appointment for CT scan and denies any episodes of headache, visual disturbances, dizziness, right-sided numbness/tingling. Patient states she has had some right ankle pain and right hip pain since the incident. Related Data Home Medications Medication Instructions Recorded Confirmed hydrochlorothiazide 12.5 mg tablet 12.5 mg PO DAILY 05/10/20 08/28/21 omeprazole 40 mg capsule,delayed 40 mg PO DAILY 05/10/20 08/28/21 release albuterol sulfate 90 mcg/actuation 0 mcg inhalation 02/13/21 aerosol inhaler fluticasone 250 mcg-salmeterol 50 1 ea inhalation BID 02/13/21 08/28/21 mcg/dose blistr powdr for inhalation (John Inhkenneth) amlodipine 5 mg tablet 1 tab PO DAILY 08/28/21 08/28/21 fluticasone propionate 110 2 puff PO BID 08/28/21 08/28/21 mcg/actuation HFA aerosol inhaler (Flovent HFA) acetaminophen 500 mg tablet 500 mg PO Q6H PRN 09/18/21 Allergies Allergy/AdvReac Type Severity Reaction Status Date / Time lisinopril Allergy Intermediate cough Verified 09/18/21 09:03 zolpidem [Ambien] Allergy Intermediate droggy Verified 09/18/21 09:03 Review of Systems Review of Systems: Pertinent positives and negatives as stated in HPI 10 point review of systems is otherwise negative. [facility] Past Medical History Source: nursing notes reviewed Medical History Asthma Fibromyalgia GERD (gastroesophageal reflux disease) History of depression Osteopenia Surgical History H/O foot surgery Hx of section Hx of colonoscopy Hx of esophagogastroduodenoscopy Hx of hysterectomy Hx of tubal ligation Family History Family History Mother Diabetes HTN (hypertension) Alzheimer disease Social History Social History Alcohol intake: current Patient Tobacco Use Status: Never used Tobacco Advance Directives: No Advance Directives Information Provided: No Physical Exam Vital Signs: Vital Signs: Last Vital Signs Temp 97.6 F 01/15/22 14:59 Pulse 78 01/15/22 14:59 Resp 18 01/15/22 14:59 BP 178/76 H 01/15/22 14:59 Pulse Ox 98 01/15/22 14:59 O2 Del Method 01/15/22 14:59 BMI result Body Mass Index 27.1 VITAL SIGNS: Reviewed. GENERAL: Well developed, well nourished, in no acute distress. HEAD: Normocephalic/atraumatic EYES: PERRLA, EOMI EARS: Ext canals without abnormality OROPHARYNX: no oral lesions noted, posterior pharynx clear LUNGS: Normal breath sounds. No adventitious sounds or accessory muscle use. SpO2<98> CARDIOVASCULAR: Regular rate and rhythm without noted murmurs ABDOMEN: Soft, non-tender, non-distended with bowel sounds. MUSCULOSKELETAL: No tenderness, deformities, or effusions noted on gross inspection. EXTREMITIES: No cyanosis, clubbing or edema. SKIN: Inspection of the skin reveals no rashes NEUROLOGIC: Alert and oriented x 4. Strength and sensation to light touch were grossly intact x 4, no facial asymmetry, no pronator drift, cranial nerves 2-12 are grossly intact. Course Course Course Narrative: 71-year-old female with history and clinical presentation which demonstrate a left frontoparietal acute on chronic subdural hematoma without mass effect or midline shift. Patient does not have any neurologic deficits at this time. I discussed the case with [facility] who accepts transfer as consult, all imaging was transferred over to [facility]. Patient is otherwise hemodynamically stable. MDM - Fall Lab Data Result diagrams: 01/15/22 15:23 01/15/22 15:23 Labs: Lab Results 01/15/22 Range/Units 15:23 WBC 9.8 (4.8-10.8) X10*3/uL RBC 4.84 (4.20-5.50) X10*6/uL Hgb 13.3 (12.0-16.0) g/dl Hct 41.5 (37.0-47.0) % MCV 85.7 (80.0-98.0) fL MCH 27.5 (27.0-33.0) pg MCHC 32.0 (31.0-35.0) g/dl RDW 12.2 (11.0-16.0) % Plt Count 282 (160-400) X10*3/uL MPV 10.4 (9.4-12.3) fL Immature Gran % (Auto) 0.3 (0.0-0.4) % Neut % (Auto) 55.8 (45-73) % Lymph % (Auto) 31.3 (20-40) % [place] % (Auto) 6.7 (2-11) % Eos % (Auto) 5.6 H (0-4) % Baso % (Auto) 0.3 (0-2) % Lymph # (Auto) 3.1 (1.2-4.9) X10*3/uL [place] # (Auto) 0.7 (0.1-1.2) X10*3/uL Eos # (Auto) 0.6 H (0.0-0.4) X10*3/uL Baso # (Auto) 0.0 (0.0-0.2) X10*3/uL Abs Immat Gran (auto) 0.03 (0.00-0.03) X10*3/uL Absolute Neuts (auto) 5.4 (2.0-8.3) x10*3/uL Absolute Nucleated RBC 0.000 (0.0-0.012) X10*3/uL Nucleated RBC % (auto) 0.0 (0.0-0.2) /100WBC ECG Data Attestation: I personally reviewed and interpreted this ECG as follows: Prior ECG tracings: not available for review Interpretation: Normal sinus rhythm, HR-62, no STEMI, SC/QRS/QTC is within normal limits. Critical Care Time Critical Care Time Critical Care Time: Yes Total Critical Care Time: 30 Attestation: I personally attest to this time spent taking care of the patient. Discharge Plan Discharge Clinical Impression: Acute subdural hematoma, Chronic subdural hematoma Patient Disposition: er [facility] Transfer Details: Acute on chronic subdural hematoma Prescriptions: No Action amlodipine 5 mg tablet 1 tab PO DAILY Flovent HFA 110 mcg/actuation HFA aerosol inhaler 2 puff PO BID hydrochlorothiazide 12.5 mg tablet 12.5 mg PO DAILY omeprazole 40 mg capsule,delayed release(DR/EC) 40 mg PO DAILY albuterol sulfate 90 mcg/actuation HFA aerosol inhaler 0 mcg inhalation fluticasone propion-salmeterol [Wixela Inhub] 250-50 mcg/dose blister with device 1 ea inhalation BID acetaminophen 500 mg tablet 500 mg PO Q6H PRN
[2022-01-15 15:29] LABS: MANUAL DIFF FLAG NO
--- NOTE | 2022-01-15 15:30 | PC.NURSE ---
patient assessed with use of certified court/medical interpreter primary Guamanian speaking only . patient presents to ED after receiving images at out patient CT for increased memory loss and headaches after after that happened on December 29 . patient is a/ox4 . pearrla . heart rate is regular at 68 bear=ts per minute .lungs clear . skin pink warm and dry . abdomen soft non tender with positive bowel sounds in all quadrants . IV placed in left AC . Labs drawn and sent to lab . Neurological assessment done no signs of deficient noted . patient ambulates with use of walker . patient aware of plan of care .
[2022-01-15 15:31] LABS: Basophils Percent Auto 0.3 % (0-2); Eosinophils Absolute Auto 0.6 X10*3/uL (0.0-0.4); Eosinophils Percent Auto 5.6 % (0-4); Hematocrit 41.5 % (37.0-47.0); Hemoglobin 13.3 g/dl (12.0-16.0); Imm Gran Abs Auto 0.03 X10*3/uL (0.00-0.03); Imm Gran Pct Auto 0.3 % (0.0-0.4); Lymphocytes Absolute Auto 3.1 X10*3/uL (1.2-4.9); Lymphocytes Percent Auto 31.3 % (20-40); Mean Corpuscular Hemoglobin 27.5 pg (27.0-33.0); Mean Corpuscular Volume 85.7 fL (80.0-98.0); Mean Platelet Volume 10.4 fL (9.4-12.3); Monocytes Absolute Auto 0.7 X10*3/uL (0.1-1.2); Monocytes Percent Auto 6.7 % (2-11); Neutrophils Absolute Auto 5.4 x10*3/uL (2.0-8.3); Neutrophils Percent Auto 55.8 % (45-73); Platelet Count 282 X10*3/uL (160-400); Red Blood Count 4.84 X10*6/uL (4.20-5.50); Red Cell Distribution Width 12.2 % (11.0-16.0); White Blood Count 9.8 X10*3/uL (4.8-10.8)
[2022-01-15 15:36] LABS: Prothrombin Time 10.9 SEC (10.0-13.1)
[2022-01-15 15:39] LABS: Partial Thromboplastin Time 30.6 SEC (26.0-36.4)
[2022-01-15 15:43] LABS: Anion Gap 14 (12-20); Blood Urea Nitrogen 16 mg/dL (9-16); Calcium 9.4 mg/dL (8.4-10.2); Carbon Dioxide 25 mmol/L (22-29); Chloride 106 mmol/L (96-108); Creatinine Clr Calc Pharmacy 58.1; Estimated Glomerular Filt Rate > 60; Glucose Random 111 mg/dL (60-115); Potassium 3.8 mmol/L (3.3-5.1); Sodium 141 mmol/L (135-145)
[2022-01-15 15:52] LABS: COVID-19 Test Negative (Negative); IDNOW Serial# 9DB6401D
[2022-01-15 15:59] VITALS: BP 144/72; PULSE 66; RESP 18; O2SAT 97
[2022-01-15 16:03] VITALS: BP 136/61; PULSE 64; RESP 16; O2SAT 96
--- NOTE | 2022-01-15 16:10 | PC.NURSE ---
Report given to staple side laster for [facility] for transfer to [facility] ED . patient aware of plan of care .
== END 2022-01-15 16:20 | disposition short-term general hospital (02) ==
PROVIDERS: Emergency Medicine; Emergency Provider Student in an Organized Health Care Education/Training Program; PCP Family Medicine
DX: S06.5X0A Traumatic subdural hemorrhage without loss of consciousness, initial encounter (principal); W18.39XA Other fall on same level, initial encounter; I10 Essential (primary) hypertension; Y93.41 Activity, dancing; Y92.814 Boat as the place of occurrence of the external cause; Y99.8 Other external cause status; Z20.822 Contact with and (suspected) exposure to COVID-19; Z79.899 Other long term (current) drug therapy
CPT/HCPCS: 36415; 80048; 85025; 85610; 85730; 87635; 93005; 99285

== ENCOUNTER 2022-02-11 11:54 | Outpatient (REF) | payer OTHER, SELFPAY ==
--- NOTE | ~2022-02-11 | XR_ITS ---
EXAMINATION: XR KNEE AP STANDING, BILATERAL CLINICAL INFORMATION: Right knee pain. COMPARISON: Right knee 01/06/2022. TECHNIQUE: AP bilateral standing view of the knees was obtained. FINDINGS: Again seen is mild narrowing in the medial compartment on the right. Similar, but milder, findings are present on the left. No fractures. No chondrocalcinosis. XR/XR knee standing BI IMPRESSION: Mild degenerative changes, right greater than left.
== END 2022-02-11 11:55 | disposition home or self-care (01) ==
LOC: HO.HOSX 11:54
PROVIDERS: Visit Provider Physician Assistant
DX: M17.11 Unilateral primary osteoarthritis, right knee (principal)
CPT/HCPCS: 73565; 99202

== ENCOUNTER 2022-06-04 07:40 | Outpatient (REF) | payer OTHER, SELFPAY ==
--- NOTE | ~2022-06-04 | MM_ITS ---
EXAMINATION: MM SCREENING DIGITAL BREAST TOMOSYNTHESIS, BILATERAL CLINICAL INFORMATION: Screening. Asymptomatic. The lifetime risk of breast cancer based on the Tyrer-Cuzick Model is 1.4%. COMPARISON: Mammography: May 28, 2021 and studies dating back to December 31, 2015 TECHNIQUE: Digital breast tomosynthesis is performed in both the craniocaudal and mediolateral oblique views along with computer-aided detection (CAD). Synthesized 2D images are generated from the tomosynthesis. FINDINGS: The breasts are almost entirely fatty (ACR BI-RADS breast composition Category a). There are no significant masses, abnormal calcifications, or other abnormalities. MM/MM tomosynthesis screening BI IMPRESSION: No significant changes from prior exam. ASSESSMENT: BI-RADS 1: Negative RECOMMENDATION: Routine annual mammography screening. This patient's information was entered into a reminder system with a target due date for their next mammogram.
== END 2022-06-04 07:41 | disposition home or self-care (01) ==
LOC: HO.MAMMO 07:40
PROVIDERS: PCP Family Medicine; Visit Provider Family Medicine
DX: Z12.31 Encounter for screening mammogram for malignant neoplasm of breast (principal)
CPT/HCPCS: 77063; 77067

== ENCOUNTER 2022-06-12 09:58 | Outpatient (REF) | payer OTHER, SELFPAY ==
--- NOTE | ~2022-06-12 | CT_ITS ---
EXAMINATION: CT HEAD WITH/WITHOUT CONTRAST CLINICAL INFORMATION: Subdural hematoma. COMPARISON: CT brain 01/15/2022. TECHNIQUE: Contiguous axial imaging was performed from the skull base to vertex before and after the administration of 100 mL of Omnipaque [address] examination was performed using dose optimization techniques as appropriate, variously including the following: *Automated exposure control *Adjustment of mA and/or kV according to patient size (this includes techniques or standardized protocols for targeted exams where dose is matched to indication/reason for exam; i.e. extremities or head) *Use of iterative reconstruction technique DLP: 1384 mGy-cm FINDINGS: There is no acute intra-axial, extra-axial bleed, masses or midline shift. Previously seen acute on chronic left frontoparietal hematoma has resolved. There is no abnormal intraparenchymal enhancement or mass or mass effect. The carver to white matter differentiation is maintained normal. The lateral ventricles are symmetrical in size and configuration with mild prominence. There is no edema or mass effect. Bone windows reveal no calvarial abnormality. There is no scalp soft tissue abnormality. Bilateral paranasal sinuses and mastoid air cells are well aerated. The soft tissues are normal. CT/CT head/brain wo/w IV con IMPRESSION: 1. No acute intracranial process seen. 2. Previously seen acute on chronic left frontoparietal hematoma has resolved.
[2022-06-12] MEDS: iohexoL 350 MG/ML 100 ML INFUS..BTL IV (11:22)
[2022-06-15 08:39] LABS: Creatinine POC 0.7 mg/dL (0.5-1.4); GFR POC > 60
== END 2022-06-12 09:59 | disposition home or self-care (01) ==
LOC: HO.CT 09:58
PROVIDERS: PCP Internal Medicine Transplant Hepatology; Visit Provider Psychiatry & Neurology Neurology
DX: I62.00 Nontraumatic subdural hemorrhage, unspecified (principal)
CPT/HCPCS: 70470; 82565; Q9967

== ENCOUNTER 2022-06-25 07:49 | Outpatient (REF) | payer OTHER, SELFPAY ==
--- NOTE | 2022-06-25 | PFT_ITS ---
INDICATION: Asthma. SPIROMETRY: FEV1 to FVC of 86% with an FEV1 of 1.78 L, which is 78% predicted and an FVC of 2.07 L, which is 72% predicted. The patient did have a significant response to bronchodilators noted. Maximum voluntary ventilation 77% predicted. LUNG VOLUMES: Total lung capacity 72% predicted with an expiratory reserve volume of 18% predicted. DIFFUSION CAPACITY: DLCO 80% predicted. COMPARISONS: None. INTERPRETATION: No obstructive ventilatory defect. The patient did have a significant response to bronchodilators noted and has a mild decrease in maximum voluntary ventilation. The patient does have a restrictive ventilatory defect consistent with mild restrictive lung disease. Need to consider underlying parenchymal lung conditions. The patient also has a decrease in the expiratory reserve volume secondary to hyperexpansion of her lungs. Diffusion capacity 80% predicted. Clinical correlation warranted. MD KELBY Cabello/JOSE ROBERTO / [id number]
== END 2022-06-25 07:50 | disposition home or self-care (01) ==
LOC: HO.RESP 07:49
PROVIDERS: PCP Family Medicine; Visit Provider Family Medicine
DX: J45.20 Mild intermittent asthma, uncomplicated (principal)
CPT/HCPCS: 94060; 94727; 94729

== ENCOUNTER 2022-10-20 11:59 | Outpatient (AMB) | payer OTHER, SELFPAY ==
--- NOTE | 2022-10-20 12:00 | A.OFFVIS_ITS ---
Intake Vital Signs 10/20/22 12:07 Height 5 ft 3 in Weight 150 lb 5.684 oz BMI 26.6 BP 142/93 H Blood Pressure Location Lt brachial Position Sitting Pulse 67 Intake Visit Reasons: pt req appointment Intake Note: Jenny presents in office as a est.patient for a f/u pt requested appt PT CC: pt reports having a sour stomach pt denies any other GI Issues [employer] Vendor Required: Yes [employer] Vendor Language: Citizen Of [place] Accompanied by: Self / Same As Patient Allergies lisinopril Allergy (Intermediate, Verified 10/20/22 12:07) cough zolpidem [Ambien] Allergy (Intermediate, Verified 10/20/22 12:07) droggy Medication List - Last Reconciled 10/20/22 by IRAIS Mcdermott acetaminophen 500 mg PO Q6H PRN albuterol sulfate 90 mcg/actuation 0 mcg inhalation amlodipine 1 tab PO DAILY ascorbic acid (vitamin C) mg PO docosahexaenoic acid-epa 120-180 mg (Fish Oil) 1 cap PO DAILY fluticasone propion-salmeterol 250-50 mcg/dose (Wixela Inhub) 1 ea inhalation BID fluticasone propionate 110 mcg/actuation (Flovent HFA) 2 puffs PO BID fluticasone propionate 50 mcg/actuation 1 spray intranasal DAILY hydrochlorothiazide 12.5 mg PO DAILY omeprazole 40 mg PO DAILY vitamin A palmitate 3,000 mcg PO QWEEK vitamin B complex (B Complex-Vitamin B12 tablet) 1 tab PO DAILY HPI pt req appointment HPI Details Assessment & Plan (1) Tubular adenoma of colon: ?Comment: TA x 2015 scope ?Code(s): D12.6 - Benign neoplasm of colon, unspecified ?Plan: Citizen Of [place] #[id number], Concepcion She tolerated the procedure well. I explain the results and she is agreeable to a 3 year recall. She was also educated to advise any 1st degree relatives re: her polyps so that they can be screened by age 45 as they may have increased genetic risk. She says her family have been informed. Her bowels have returned to normal after the procedure. EGD 2015 PROCEDURES DONE: EGD with biopsy, colonoscopy with cold snare polypectomy x1, excisional polypectomies x5. ? PROCEDURE IN DETAIL: Videoendoscope was introduced without difficulty. It was navigated into the posterior pharynx. At quick view, the arytenoid cartilages which showed mild erythema and edema. On entering the esophagus, esophageal mucosa was normal down to the level of the GE junction. GE junction was clear and distinct. Distal to this was a small 2-cm hiatal hernia seen both antegrade and retrograde. On entering the stomach, there was a grainy texture to the mucosa with a few flecked areas of submucosal erythema. Scope easily advanced through the pylorus into the duode nal bulb. The second duodenum had patchy erythema. Duodenal biopsies were obtained. Gastric biopsies were obtained ? General impression: Small hiatal hernia, duodenitis, superficial gastritis. A. UNREMARKABLE D UODENAL MUCOSA.A B. GASTRIC ANTR AL AND FUNDIC-TYPE MUCOSA WITH A SUP ERFICIAL CHRONIC G ASTRITIS. AN IMMUNOSTA IN FOR HELICOBACTE R PYLORI IS NEGATI VE. C. TUBULAR KATHIE ANTWAN. D. TUBULAR KATHIE ANTWAN. E. TUBULAR KATHIE ANTWAN. F. HYPERPLASTIC POLYP. G. TUBULAR KATHIE ANTWAN. TODAY'S VISIT Her colonoscopy was in 2021. Citizen Of [place] #Armaan Live She is here for a new complaint of stomach problems. This is in the midline upper stomach and is a feeling of the stomach feeling empty despite whether there is food in the stomach or not. This has been an intermittent problem for 3 years that can last for 3 days and then it goes. This can happen a couple times a month. She can not ID any illness or medication changes preceding this. She is currently on omeprazole 40mg qd. When she drinks tea she goes to the [place] and she drinks it once daily. When she moves her bowels she sees yellow mucus and this hill the rectum. She still has a GB, she had an EGD [place] [address] Parmar. vivian 4 WEEKS. [facility] Medical History Asthma Fibromyalgia GERD (gastroesophageal reflux disease) History of depression Osteopenia Surgical History H/O foot surgery Hx of section Hx of colonoscopy Hx of esophagogastroduodenoscopy Hx of hysterectomy Hx of tubal ligation Family History Mother Diabetes HTN (hypertension) Alzheimer disease Social History Alcohol intake: former Patient Tobacco Use Status: Never used Tobacco Current occupational status: unemployed Review of Systems Const Denies fatigue, Denies fever(s), Denies night sweats, Denies poor appetite and Denies weight loss ENT Reports Normal hearing present, Denies dysphagia, Denies odynophagia, Denies throat swelling and Denies tongue swelling Card Reports no additional complaints Resp Reports no additional complaints GI Denies abdominal pain, Denies melena, Denies bloating, Denies hematochezia, Denies constipation, Denies GI cramping, Denies dysphagia, Denies excessive flatus, Denies early satiety, Reports dyspepsia, Reports heartburn, Denies diarrhea, Denies nausea, Denies odynophagia, Denies vomiting and Denies hematemesis Skin/Breast Denies pruritus, Denies lesions, Denies rash and Denies jaundice Neuro Reports Normal hearing present and Denies Abnormal speech present Endo Denies fatigue Aller/Immun Denies throat swelling and Denies tongue swelling Physical Exam Vital Signs: Last Vital Signs Pulse 67 10/20/22 12:07 BP 142/93 H 10/20/22 12:07 BMI result Body Mass Index 26.6 Const General: cooperative, no acute distress, well developed and well groomed Nutritional Appearance: average body habitus and well nourished Orientation/consciousness: oriented to person, oriented to place and oriented to time Limitations: language barrier and ambulation with cane HEENT Head: Yes normocephalic and Yes atraumatic Eyes General: appearance normal, both eyes and all related structures Pupils: Equal, round and reactive pupils present Neck Neck: Yes normal visual inspection and Yes no lymphadenopathy Thyroid: Thyroid normal Resp Effort & Inspection: normal respiratory effort and able to speak in complete sentences Auscultation: clear to auscultation bilaterally Cardio Rate: regular rate Rhythm: regular rhythm Heart sounds: Normal, physiologic split S2 sound present Peripheral pulses: radial pulses present and posterior tibial pulses present GI Inspection: No distended and No Abdominal panniculus present Palpation (GI): Soft to palpation, nontender, no guarding, not rigid and No hepatosplenomegaly present Percussion: Yes normal to percussion Auscultation: normal bowel sounds Rectal Exam - Female: deferred Skin General skin exam: no rashes or lesions noted, turgor normal, skin not dry, no jaundice, No spider nevi and no striae Rashes: no rashes Nails: normal Neuro General: oriented to person, oriented to place and oriented to time Cranial nerves: Yes Equal, round and reactive pupils present and Yes Normal hearing present Speech: No Abnormal speech present Extrem General: Yes normal to inspection, No clubbing, No cyanosis and No edema Psych Appearance: grossly normal and well kempt Mental Status: mental status grossly normal Speech and movement: Normal speech and movement present Affect: normal affect Attitude: cooperative Thought process: Normal thought process present and not confabulating Thought content: Normal thought content present Insight: Limited insight present (Psych) Judgement: Limited judgement present (Psych) Assessment & Plan Assessment & Plan (1) Gastric pain: Code(s): R10.9 - Unspecified abdominal pain Plan: Citizen Of [place] #Armaan Live She is here for a new complaint of stomach problems. This is in the midline upper stomach and is a feeling of the stomach feeling empty despite whether there is food in the stomach or not. This has been an intermittent problem for 3 years that can last for 3 days and then it goes. This can happen a couple times a month. She can not ID any illness or medication changes preceding this. She is currently on omeprazole 40mg qd. When she drinks tea she goes to the BR and she drinks it once daily. When she moves her bowels she sees yellow mucus and this hill the rectum. She still has a GB, she had an EGD in [address] Parmar. vivian 4 WEEKS. Orders: Orders Amylase 10/20/22 R10.9 - Unspecified abdominal pain Comprehensive Met. Panel 10/20/22 R10.9 - Unspecified abdominal pain C Reactive Protein 10/20/22 R10.9 - Unspecified abdominal pain Lipase 10/20/22 R10.9 - Unspecified abdominal pain Complete Blood Count Auto Diff 10/20/22 R10.9 - Unspecified abdominal pain H pylori Ag Stool 10/21/22 R10.9 - Unspecified abdominal pain Pancreatic Elastase-1 10/21/22 R10.9 - Unspecified abdominal pain US abdomen complete 10/20/22 R10.9 - Unspecified abdominal pain Coding Level of Care Code Est Pt Level 4 (95420) Diagnoses Gastric pain R10.9
[2022-10-20 12:07] VITALS: BP 142/93; PULSE 67; BMI 26.6
== END 2022-10-20 12:48 | disposition home or self-care (01) ==
PROVIDERS: PCP Family Medicine; Visit Provider Nurse Practitioner
DX: R10.9 Unspecified abdominal pain (principal)
CPT/HCPCS: 99214

== ENCOUNTER 2022-10-20 11:59 | Outpatient (REF) | payer OTHER, SELFPAY ==
[2022-10-20 13:13] LABS: MANUAL DIFF FLAG NO
[2022-10-20 14:08] LABS: Basophils Percent Auto 0.5 % (0-2); Eosinophils Absolute Auto 0.4 X10*3/uL (0.0-0.4); Eosinophils Percent Auto 5.5 % (0-4); Hematocrit 40.9 % (37.0-47.0); Imm Gran Abs Auto 0.01 X10*3/uL (0.00-0.03); Imm Gran Pct Auto 0.2 % (0.0-0.4); Lymphocytes Absolute Auto 2.6 X10*3/uL (1.2-4.9); Lymphocytes Percent Auto 38.7 % (20-40); Mean Corpuscular HGB Conc 31.8 g/dl (31.0-35.0); Mean Corpuscular Hemoglobin 27.4 pg (27.0-33.0); Mean Corpuscular Volume 86.3 fL (80.0-98.0); Mean Platelet Volume 11.2 fL (9.4-12.3); Monocytes Absolute Auto 0.5 X10*3/uL (0.1-1.2); Monocytes Percent Auto 7.1 % (2-11); Neutrophils Absolute Auto 3.2 x10*3/uL (2.0-8.3); Platelet Count 268 X10*3/uL (160-400); Red Blood Count 4.74 X10*6/uL (4.20-5.50); Red Cell Distribution Width 12.3 % (11.0-16.0); White Blood Count 6.6 X10*3/uL (4.8-10.8)
[2022-10-20 14:59] LABS: Alanine Aminotransferase 17 U/L (0-31); Albumin Level 4.1 g/dL (3.5-5.0); Alkaline Phosphatase 58 U/L (39-117); Anion Gap 11 (12-20); Aspartate Amino Transferase 18 U/L (5-31); Bilirubin Total 0.6 mg/dL (0.0-1.0); Blood Urea Nitrogen 24 mg/dL (9-16); C Reactive Protein 0.16 mg/dL (< or = 0.50); Calcium 9.9 mg/dL (8.4-10.2); Carbon Dioxide 30 mmol/L (22-29); Chloride 106 mmol/L (96-108); Estimated Glomerular Filt Rate 59; Glucose Random 88 mg/dL (60-115); Lipase 22 U/L (8-78); Potassium 4.1 mmol/L (3.3-5.1); Sodium 143 mmol/L (135-145); Total Protein 7.1 g/dL (6.5-8.0)
[2022-10-20 16:21] LABS: Amylase 61 U/L (28-100)
[2022-10-29 20:12] LABS: Pancreatic Elastase-1 18 mcg/g
== END 2022-10-20 12:00 | disposition home or self-care (01) ==
LOC: HO.LAB 11:59
PROVIDERS: PCP Family Medicine; Visit Provider Nurse Practitioner
DX: R10.9 Unspecified abdominal pain (principal)
CPT/HCPCS: 36415; 80053; 82150; 82656; 83690; 85025; 86140; 87338; 99212

== ENCOUNTER 2022-11-11 07:54 | Outpatient (REF) | payer OTHER, SELFPAY ==
--- NOTE | ~2022-11-11 | US_ITS ---
EXAMINATION: US ABDOMEN COMPLETE CLINICAL INFORMATION: Unspecified abdominal pain. COMPARISON: Ultrasound abdomen complete 10/11/2014. TECHNIQUE: Real-time imaging of the abdominal viscera. FINDINGS: PANCREAS: Normal. ABDOMINAL AORTA: The proximal, mid, and distal segments are normal in caliber. INFERIOR VENA CAVA: Visualized portions are normal. LIVER: The liver is normal in size. The liver contour is normal. There is diffuse increased liver parenchymal echogenicity. Within the left hepatic lobe, a 9 mm benign, simple cyst is seen. This requires no imaging follow-up. There is no intrahepatic biliary duct dilatation seen. GALLBLADDER: Normal. The gallbladder is physiologically distended without evidence of stones, sludge, polyps, wall thickening or pericholecystic fluid. COMMON BILE DUCT: Normal in caliber measuring 0.3 cm in diameter. RIGHT KIDNEY: There are multiple simple parapelvic cysts, the largest at the lower pole measuring 1.3 cm. These require no imaging follow-up. At the upper pole, a 3 mm nonobstructing calculus is seen. At the interpolar aspect, 5 mm and 2 mm nonobstructing calculi are seen. No hydronephrosis. The kidney measures 8.9 cm in maximum dimension. LEFT KIDNEY: Multiple simple parapelvic cysts are seen, the largest measuring 1.5 cm. These requiring no imaging follow-up. No hydronephrosis or renal calculi. The kidney measures 9.9 cm in maximum dimension. SPLEEN: Normal. The spleen measures 8.3 cm in maximum dimension. FREE FLUID: None. US/US abdomen complete IMPRESSION: 1. There is generalized increase in hepatic echotexture, consistent with fatty infiltration or hepatocellular disease. Please correlate clinically. No focal hepatic mass or intrahepatic biliary dilatation is seen. 2. There are nonobstructing right renal calculi. No left renal calculus is seen. No hydronephrosis is noted bilaterally.
== END 2022-11-11 07:55 | disposition home or self-care (01) ==
LOC: HO.US 07:54
PROVIDERS: PCP Family Medicine; Visit Provider Nurse Practitioner
DX: R10.9 Unspecified abdominal pain (principal)
CPT/HCPCS: 76700

== ENCOUNTER 2022-12-31 10:36 | Outpatient (REF) | payer OTHER, SELFPAY ==
[2022-12-31 14:12] LABS: Anion Gap 15 (12-20); Blood Urea Nitrogen 13 mg/dL (9-16); Calcium 9.7 mg/dL (8.4-10.2); Carbon Dioxide 27 mmol/L (22-29); Chloride 103 mmol/L (96-108); Estimated Glomerular Filt Rate > 60; Glucose Random 85 mg/dL (60-115); Potassium 3.8 mmol/L (3.3-5.1); Sodium 141 mmol/L (135-145)
[2022-12-31 14:18] LABS: TSH reflex Free T4 1.97 uIU/mL (0.32-4.0); Vitamin D 25-OH Total 31.8 ng/mL (>30)
[2023-01-01 16:58] LABS: Calcium (PTHI) 9.4 mg/dL (8.6-10.4); PTHI 53 pg/mL (16-77)
== END 2022-12-31 10:37 | disposition home or self-care (01) ==
LOC: HO.HHCL 10:36
PROVIDERS: Visit Provider Family Medicine
DX: I10 Essential (primary) hypertension (principal); R23.2 Flushing; N20.0 Calculus of kidney; Z13.21 Encounter for screening for nutritional disorder
CPT/HCPCS: 36415; 80048; 82306; 83970; 84443

== ENCOUNTER 2023-01-06 14:39 | Outpatient (REF) | payer OTHER, SELFPAY ==
[2023-01-06 15:35] LABS: Creatinine, mg/dL 54.09
[2023-01-06 15:40] LABS: Creatinine, 24Hr Urine 0.9 G/Day (1.0-2.0); Total Volume 24 Hour Urine 1725 mL
[2023-01-16 16:49] LABS: Hydroindolacetic Acid,5- 11.2 mg/24 h (< OR = 6.0); Total Volume 1725 mL
== END 2023-01-06 14:40 | disposition home or self-care (01) ==
LOC: HO.LNP 14:39
PROVIDERS: Visit Provider Family Medicine
DX: I10 Essential (primary) hypertension (principal); R23.2 Flushing
CPT/HCPCS: 81050; 82570; 83497

== ENCOUNTER 2023-03-12 09:52 | Outpatient (REF) | payer OTHER, SELFPAY ==
--- NOTE | ~2023-03-12 | XR_ITS ---
EXAMINATION: XR CLAVICLE, RIGHT CLINICAL INFORMATION: Right clavicle deformity COMPARISON: Right shoulder x-rays 09/25/2021 TECHNIQUE: Two views of the right clavicle. FINDINGS: No fracture right clavicle. There are mild hypertrophic changes of the right acromioclavicular joint. Soft tissue calcifications adjacent to the greater tuberosity of the right humeral head. Visualized right-sided ribs and lung parenchyma are unremarkable. XR/XR clavicle RT IMPRESSION: Mild degenerative changes of the right acromioclavicular joint without fracture or dislocation.
== END 2023-03-12 09:53 | disposition home or self-care (01) ==
LOC: HO.XRAY 09:52
PROVIDERS: PCP Family Medicine; Visit Provider Family Medicine
DX: M95.8 Other specified acquired deformities of musculoskeletal system (principal)
CPT/HCPCS: 73000

== ENCOUNTER 2023-03-30 11:05 | Outpatient (REF) | payer OTHER, SELFPAY ==
[2023-03-30 13:30] LABS: Cholesterol 183 mg/dL (<200); HDL Cholesterol 49 mg/dL (>40); LDL Cholesterol Calculated 113 mg/dL (<100); Triglycerides 105 mg/dL (<150)
[2023-03-30 13:31] LABS: Estimated Average Glucose 97 mg/dL
[2023-03-30 13:35] LABS: Alanine Aminotransferase 22 U/L (0-31); Albumin Level 3.9 g/dL (3.5-5.0); Alkaline Phosphatase 63 U/L (39-117); Anion Gap 13 (12-20); Aspartate Amino Transferase 22 U/L (5-31); Bilirubin Total 0.4 mg/dL (0.0-1.0); Blood Urea Nitrogen 18 mg/dL (9-16); Carbon Dioxide 26 mmol/L (22-29); Chloride 108 mmol/L (96-108); Estimated Glomerular Filt Rate > 60; Glucose Random 94 mg/dL (60-115); Potassium 4.5 mmol/L (3.3-5.1); Sodium 142 mmol/L (135-145)
[2023-03-30 13:44] LABS: Reflex LDLD? No
== END 2023-03-30 11:06 | disposition home or self-care (01) ==
LOC: HO.HHCL 11:05
PROVIDERS: Visit Provider Family Medicine
DX: I10 Essential (primary) hypertension (principal)
CPT/HCPCS: 36415; 80053; 80061; 83036

== ENCOUNTER 2023-03-30 11:26 | Outpatient (REF) | payer OTHER, SELFPAY | END 2023-03-30 11:27 | disposition home or self-care (01) | LOC: HO.XRAY 11:26 | PROVIDERS: PCP Family Medicine; Visit Provider Family Medicine | DX: M95.4 Acquired deformity of chest and rib (principal) | CPT/HCPCS: 71120 ==

== ENCOUNTER 2023-07-22 08:23 | Outpatient (REF) | payer OTHER, SELFPAY | END 2023-07-22 08:24 | disposition home or self-care (01) | LOC: HO.MAMMO 08:23 | PROVIDERS: PCP Family Medicine; Visit Provider Family Medicine | DX: Z12.31 Encounter for screening mammogram for malignant neoplasm of breast (principal) | CPT/HCPCS: 77063; 77067 ==

== ENCOUNTER → 2023-07-22 08:30 | Outpatient (BNV) | payer OTHER, SELFPAY | PROVIDERS: PCP Family Medicine; Visit Provider Radiology Diagnostic Radiology | DX: Z12.31 Encounter for screening mammogram for malignant neoplasm of breast (principal) | CPT/HCPCS: 77063; 77067 ==

== ENCOUNTER 2023-10-12 09:10 | Outpatient (REF) | payer OTHER, SELFPAY ==
--- NOTE | ~2023-10-12 | MM_ITS ---
EXAMINATION: BONE DENSITOMETRY CLINICAL INDICATION: Osteopenia, currently on bisphosphonate. COMPARISON: Previous BD dated 09/30/2021 and baseline BD dated 04/12/2009. TECHNIQUE: Using a [employer] DXA System (software version: 13.1) manufactured by [employer], dual-energy x-ray absorptiometry was performed of the lumbar spine and left hip. The images are of good technical quality. Summary results are attached. FINDINGS: LEFT FEMUR, NECK: Current: BMD 0.719 g/cm2, Z-score -0.5, T-score -2.3, osteopenia. Prior: BMD 0.770 g/cm2. Baseline: BMD 0.895 g/cm2. LEFT FEMUR, TOTAL: Current: BMD 0.881 g/cm2, Z-score 0.5, T-score -1.0, normal, 1.4% increase from previous, 11.6% decrease from baseline (<5% change is not significant). Prior: BMD 0.869 g/cm2. Baseline: BMD 0.997 g/cm2. AP SPINE L1-L4: Current: BMD 1.040 g/cm2, Z-score 0.4, T-score -1.2, osteopenia, 4.7% increase from previous, 0.3% increase from baseline (<5% change is not significant). Prior: BMD 0.993 g/cm2. Baseline: BMD 1.037 g/cm2. IDENTIFIED RISK FACTORS: Early menopause, secondary osteoporosis, hysterectomy, left oophorectomy, thiazide. HISTORY OF FRACTURE: None listed. MEDICATIONS: Multivitamin. MM/XR DEXA axial skeleton IMPRESSION: 1. DIAGNOSIS: Osteopenia based on the lowest T-score value of -2.3 in the femoral neck applying World Health Organization criteria. 2. 10-YEAR FRACTURE RISK PREDICTION, FRAX: Major osteoporotic fracture (clinical spine, forearm, hip or shoulder) 8.6%. Hip fracture 2.3%. 3. Treatment Recommendations: NOF guidelines recommend consideration for treatment in postmenopausal women and men age 50 and older presenting with the following: -A hip or vertebral (clinical or morphometric) fracture. -T-score less than or equal to -2.5 at the femoral neck or spine after appropriate evaluation to exclude secondary causes. -Low bone mass at the hip or spine and a 10-year fracture probability by FRAX of greater than or equal to 3% for hip fracture or greater than or equal to 20% for major osteoporotic fracture based on the [place] adapted WHO algorithm. 4. Other Recommendations: All treatment decisions require clinical judgment and consideration of individual patient factors, including patient preferences, comorbidities, previous drug use, risk factors not captured in the FRAX model (e.g. frailty, falls, vitamin D deficiency, increased bone turnover, interval significant decline in bone density) and possible under or overestimation of fracture risk by FRAX. Additional medical evaluation for secondary cause of low bone mineral density may be appropriate. FUTURE SCAN RECOMMENDATION: People with diagnosed cases of osteoporosis or at high risk for fracture should have regular bone mineral density tests. For patients eligible for Medicare, routine testing is allowed once every 2 years. The testing frequency can be increased to one year for patients who have rapidly progressing disease, those who are receiving or discontinuing medical therapy to restore bone mass, or have additional risk factors.
== END 2023-10-12 09:11 | disposition home or self-care (01) ==
LOC: HO.MAMMO 09:10
PROVIDERS: PCP Family Medicine; Visit Provider Family Medicine
DX: Z13.820 Encounter for screening for osteoporosis (principal); M85.89 Other specified disorders of bone density and structure, multiple sites; Z78.0 Asymptomatic menopausal state
CPT/HCPCS: 77080

== ENCOUNTER 2023-10-14 11:01 | Outpatient (REF) | payer OTHER, SELFPAY ==
--- NOTE | ~2023-10-14 | XR_ITS ---
EXAMINATION: XR KNEE, RIGHT CLINICAL INFORMATION: Chronic pain right knee has had falls years ago COMPARISON: 02/11/2022, 01/06/2022 TECHNIQUE: Four views of the right knee. FINDINGS: Trace joint effusion. Mild narrowing of the medial and lateral compartments. Minimal marginal osteophytes. XR/XR knee RT 3V IMPRESSION: Mild degenerative changes.
== END 2023-10-14 11:02 | disposition home or self-care (01) ==
LOC: HO.HHCX 11:01
PROVIDERS: Visit Provider Family Medicine
DX: M25.561 Pain in right knee (principal); G89.29 Other chronic pain
CPT/HCPCS: 73562

== ENCOUNTER 2023-11-15 16:12 | Outpatient (REF) | payer OTHER, SELFPAY ==
[2023-11-15 17:37] LABS: MANUAL DIFF FLAG NO
[2023-11-15 17:48] LABS: Basophils Percent Auto 0.4 % (0-2); Eosinophils Absolute Auto 0.3 X10*3/uL (0.0-0.4); Eosinophils Percent Auto 4.5 % (0-4); Hematocrit 37.8 % (37.0-47.0); Hemoglobin 12.3 g/dl (12.0-16.0); Imm Gran Abs Auto 0.02 X10*3/uL (0.00-0.03); Imm Gran Pct Auto 0.3 % (0.0-0.4); Lymphocytes Absolute Auto 2.7 X10*3/uL (1.2-4.9); Lymphocytes Percent Auto 36.5 % (20-40); Mean Corpuscular HGB Conc 32.5 g/dl (31.0-35.0); Mean Corpuscular Hemoglobin 28.5 pg (27.0-33.0); Mean Corpuscular Volume 87.5 fL (80.0-98.0); Mean Platelet Volume 10.9 fL (9.4-12.3); Monocytes Absolute Auto 0.7 X10*3/uL (0.1-1.2); Monocytes Percent Auto 9.1 % (2-11); Neutrophils Absolute Auto 3.6 x10*3/uL (2.0-8.3); Neutrophils Percent Auto 49.2 % (45-73); Platelet Count 244 X10*3/uL (160-400); Red Blood Count 4.32 X10*6/uL (4.20-5.50); Red Cell Distribution Width 12.2 % (11.0-16.0); White Blood Count 7.4 X10*3/uL (4.8-10.8)
[2023-11-15 19:05] LABS: Ferritin 35 ng/mL (10-250)
== END 2023-11-15 16:13 | disposition home or self-care (01) ==
LOC: HO.HHCL 16:12
PROVIDERS: Visit Provider Internal Medicine
DX: R42 Dizziness and giddiness (principal); D64.9 Anemia, unspecified
CPT/HCPCS: 36415; 82728; 85025

== ENCOUNTER 2024-04-06 00:29 | Emergency (ER) | payer OTHER, SELFPAY ==
--- NOTE | ~2024-04-06 | CT_ITS ---
CLINICAL HISTORY: Parotid gland enlargement CT soft tissue neck with contrast Comparison: None Findings: Minimal mucosal thickening identified within the ethmoid air cells with minimal fluid in minimal mucosal thickening at the bilateral maxillary sinuses. Minimal mucosal thickening present at the bilateral sphenoid sinuses. The bilateral mastoid air cells appear clear. There are multiple missing teeth. Evaluation of the soft tissues near the teeth is limited by artifact related to the patient's dental amalgam. Multifocal dental disease present. The epiglottis is within normal limits for appearance. The soft palate abuts the posterior pharyngeal wall. This may be related to the patient's phase of inspiration during imaging. No fluid or abscess collection visualized. The left parotid and left submandibular glands are within normal limits for appearance. Mild edematous changes are identified within the right facial soft tissues, extending over the right parotid and right submandibular glands. No radiodense sialoliths are appreciated. Subcentimeter low-attenuation bilateral thyroid nodules. No consolidation at the lung apices. No acute fractures. IMPRESSION: Mild edema identified over the right facial soft tissues, at the level of the right parotid and right submandibular glands with extension into the submental region, possibly consistent with cellulitis. Mild underlying sialadenitis involving the right parotid and right submandibular glands may also be present. No discrete mass visualized. This document has been electronically signed by: Jonah Snow MD on 04/06/2024 03:53:12
[2024-04-06 00:46] VITALS: BP 148/54; PULSE 62; RESP 18; TEMP 36.9; O2SAT 96; BMI 27.9
[2024-04-06 01:19] LABS: MANUAL DIFF FLAG NO
[2024-04-06 01:20] LABS: Basophils Percent Auto 0.2 % (0-2); Eosinophils Absolute Auto 0.3 X10*3/uL (0.0-0.4); Eosinophils Percent Auto 5.4 % (0-4); Hematocrit 37.6 % (37.0-47.0); Lymphocytes Absolute Auto 2.4 X10*3/uL (1.2-4.9); Lymphocytes Percent Auto 47.6 % (20-40); Mean Corpuscular HGB Conc 31.9 g/dl (31.0-35.0); Mean Corpuscular Hemoglobin 27.2 pg (27.0-33.0); Mean Corpuscular Volume 85.3 fL (80.0-98.0); Mean Platelet Volume 9.6 fL (9.4-12.3); Monocytes Absolute Auto 0.5 X10*3/uL (0.1-1.2); Monocytes Percent Auto 9.8 % (2-11); Neutrophils Absolute Auto 1.8 x10*3/uL (2.0-8.3); Platelet Count 231 X10*3/uL (160-400); Red Blood Count 4.41 X10*6/uL (4.20-5.50); Red Cell Distribution Width 13.1 % (11.0-16.0)
--- OUTSIDE RECORDS SUMMARY | 2024-04-06 01:35 | XMS_ITS | Continuity of Care Document ---
Author Organization [facility] Address [address] [place] [phone] Phone Care Team Providers Care Call Center Associate Name Role Phone Elvin Handy M.D. Unavailable Advance Directives Directive Yes / No Effective Date File Name No Information Encounters Encounter Description Practice Location Reason(s) For Visit Diagnoses Date Provider Providers Copied on Encounter [facility], [address] [place] [address], [id number], tel:[phone] [facility] [place] No Information Rozina Oconnor. [address] [place] [address], [id number] , [place]. tel: [phone] Referring Provider: Elvin Wang, [address] [place] [address], [id number]. tel:[phone] Family History Family Member Type Diagnosis Age At Onset No Information Payers Payer name Insurance type Covered democrat ID Authoriza tion(s) No Information Social History Type Description Quantity Date Captured Comments Sex Female Smoking Status No Information Chief Complaint And Reason For Visit No Information Plan Of Treatment Date Type Action Status No Information History Of Present Illness Encounter Date Complaint History Of Prese nt Illness No Information Instructions Date Instruction Additional Infor mation No Information Assessments Type Assessment Date No Information
[2024-04-06 01:43] LABS: Alanine Aminotransferase 41 U/L (0-31); Albumin Level 4.2 g/dL (3.5-5.0); Alkaline Phosphatase 76 U/L (39-117); Anion Gap 12 (12-20); Aspartate Amino Transferase 37 U/L (5-31); Bilirubin Total 0.3 mg/dL (0.0-1.0); Blood Urea Nitrogen 26 mg/dL (9-16); C Reactive Protein 0.42 mg/dL (< or = 0.50); Carbon Dioxide 22 mmol/L (22-29); Chloride 112 mmol/L (96-108); Creatinine Clr Calc Pharmacy 45.3; Estimated Glomerular Filt Rate 52; Glucose Random 98 mg/dL (60-115); Potassium 3.4 mmol/L (3.3-5.1); Sodium 143 mmol/L (135-145); Total Protein 7.6 g/dL (6.5-8.0)
[2024-04-06 01:46] LABS: IDNOW Serial# 6674DD1D; Strep A Nucleic Acid Negative (Negative)
[2024-04-06 01:52] LABS: Erythrocyte Sedimentation Rate 14 MM/HR (0-20)
[2024-04-06 03:02] VITALS: PULSE 58; RESP 16; TEMP 36.3; O2SAT 95
--- NOTE | 2024-04-06 03:08 | ED_ITS ---
HPI - General Adult General Chief complaint: General Medical Stated complaint: Swollen Neck Time Seen by Provider: 04/06/24 01:50 Source: patient Mode of arrival: ambulatory Limitations: no limitations History of Present Illness ED Provider: DR. Kurtz HPI narrative: A 74-year-old female came in for evaluation of right cheek swelling and tenderness x1 day no sick contacts, no recent travel patient had a recent viral sickness a week ago. No fever, no chills, no trauma to the face. Related Data Home Medications ?Medication ?Instructions ?Recorded ?Confirmed hydrochlorothiazide 12.5 mg tablet 12.5 mg PO DAILY 05/10/20 10/20/22 omeprazole 40 mg capsule,delayed 40 mg PO DAILY 05/10/20 10/20/22 release albuterol sulfate 90 mcg/actuation 0 mcg inhalation 02/13/21 10/20/22 aerosol inhaler fluticasone 250 mcg-salmeterol 50 1 ea inhalation BID 02/13/21 10/20/22 mcg/dose blistr powdr for inhalation (John Zimmer) amlodipine 5 mg tablet 1 tab PO DAILY 08/28/21 10/20/22 fluticasone propionate 110 2 puff PO BID 08/28/21 10/20/22 mcg/actuation HFA aerosol inhaler (Flovent HFA) acetaminophen 500 mg tablet 500 mg PO Q6H PRN 09/18/21 10/20/22 fluticasone propionate 50 1 spray intranasal DAILY 02/11/22 10/20/22 mcg/actuation nasal spray,suspension ascorbic acid (vitamin C) 500 mg mg PO 10/20/22 10/20/22 capsule docosahexaenoic acid (dha)-epa 120 1 cap PO DAILY 10/20/22 10/20/22 mg-180 mg capsule (Fish Oil) vitamin A palmitate 3,000 mcg 3,000 mcg PO QWEEK 10/20/22 10/20/22 (10,000 unit) capsule vitamin B complex (B 1 tab PO DAILY 10/20/22 10/20/22 Complex-Vitamin B12 tablet) Previous Rx's ?Medication ?Instructions ?Recorded cephalexin 500 mg capsule 500 mg PO TID 7 days #21 caps 04/06/24 doxycycline hyclate 100 mg tablet 100 mg PO BID #10 tabs 04/06/24 Allergies Allergy/AdvReac Type Severity Reaction Status Date / Time lisinopril Allergy Intermediate cough Verified 04/06/24 00:54 zolpidem [Ambien] Allergy Intermediate droggy Verified 04/06/24 00:54 Review of Systems 2 Review of Systems: All other systems are reviewed and are negative Constitutional: Reports as per HPI and Reports no additional constitutional complaints Eyes: Reports as per HPI and Reports no additional eye complaints Reports system reviewed and no additional complaints, except as documented Cardiovascular: Reports as per HPI and Reports no additional cardiovascular complaints Respiratory: Reports as per HPI and Reports no additional respiratory complaints Gastrointestinal: Reports as per HPI and Reports no additional gastrointestinal complaints Genitourinary: Reports no additional female genitourinary complaints Musculoskeletal: Reports no additional musculoskeletal complaints Skin/Breast: Reports system reviewed and no additional complaints, except as docu Psychiatric: Reports no additional psychiatric complaints Endocrine: Reports no additional endocrine complaints Hematologic/Lymphatic: Reports no additional hematologic/lymphatic complaints Allergic/Immunologic: Reports no additional allergic/immunologic complaints Reports system reviewed and no additional complaints, except as documented and Reports Abnormal speech present [facility] Past Medical History Medical History GERD (gastroesophageal reflux disease) History of depression Osteopenia Asthma Fibromyalgia Surgical History Hx of esophagogastroduodenoscopy Hx of colonoscopy H/O foot surgery Hx of tubal ligation Hx of section Hx of hysterectomy Family History Family History Mother Diabetes HTN (hypertension) Alzheimer disease Social History Social History Alcohol intake: former Patient Tobacco Use Status: Never used Tobacco Advance Directives: No Advance Directives Information Provided: Yes Current occupational status: unemployed Physical Exam ED Vital Signs: Vital Signs - 24 hr 04/06/24 00:46 04/06/24 03:02 04/06/24 03:52 Temperature 98.4 F 97.3 F 98 F Pulse Rate 62 58 62 Respiratory Rate 18 16 16 Blood Pressure 148/54 H 154/62 H Pulse Oximetry 96 95 96 Oxygen Delivery Method Room Air Room Air Room Air BMI result Body Mass Index 27.9 Vital signs have been reviewed and appear to be correct. Blood pressure elevated. Heart rate normal. Respiratory rate normal. Temperature normal. Oxygen saturation normal. Appearance: Alert. Oriented X3. No acute distress. Head: Normal external exam. Normocephalic. Atraumatic. No Vivas signs noted. No raccoon eyes noted, right parotid gland enlargement. Eyes: PERRLA. EOMI. Conjunctiva and sclera normal. Eyelids normal. ENT: TM's Normal. Pharynx normal. Uvula midline. Moist mucous membranes. No trismus noted. No drooling noted. No muffled voice noted. Neck: Normal inspection. Neck supple. FROM. No adenopathy. Thyroid Normal. No meningeal signs. No neck mass noted. CVS: Normal heart rate and rhythm. Heart sound normal. No murmurs noted. Pulses normal throughout. Respiratory: No respiratory distress. Painless inspiration. Breath sounds normal. No wheezes/rales/rhonchi noted. Chest nontender. No accessory muscle usage noted or decreased air movement noted. Abdomen: Soft and nontender. Bowel sounds normal in all 4 quadrants. No distention noted. No organomegaly noted. No visible injury noted. Back: No CVA tenderness. Full range of motion noted. Skin: Skin warm and dry. Normal skin color. Normal skin turgor. No rashes/lesions/lacerations noted. Extremities: No lower extremity edema. Extremities exhibit normal range of motion. Extremities nontender. Neuro: Oriented X 3. Cranial nerve exam: II-XII are grossly intact No motor deficit. No sensory deficit. Reflexes normal. Course Reevaluation(s) Reevaluation #1: Cellulitis in the right cheek area will start the patient on doxycycline/Keflex and follow-up with PCP. Time: 05:08 Medications Administered Discontinued Medications Generic Name Dose Route Start Last Admin Trade Name Freq PRN Reason Stop Dose Admin Cephalexin HCl 500 mg 04/06/24 03:55 04/06/24 04:25 Cephalexin 500 Mg Capsule PO 04/06/24 03:56 500 mg ONCE ONE Administration Doxycycline Monohydrate 100 mg 04/06/24 03:55 04/06/24 04:25 Doxycycline Monohydrate 100 Mg Capsule PO 04/06/24 03:56 100 mg ONCE ONE Administration Iohexol 70 ml 04/06/24 03:17 04/06/24 03:18 Iohexol 350 Mg/Ml 100 Ml Infus..Btl IV 04/06/24 03:18 70 ml ONCE ONE Administration Medical Decision Making Differential Diagnosis Differential Diagnoses: The differential diagnosis associated with the presentation includes (Parotitis, sialadenitis, cellulitis of the face, electrolyte derangement, severe anemia) Admission/Observation Consideration of admission/observation: Escalation of care including admission/observation considered Lab Data MDM Lab Attestation statement: I reviewed the patient's lab results. 04/06/24 01:14 04/06/24 01:14 Labs: Lab Results 04/06/24 04/06/24 04/06/24 Range/Units 01:14 01:15 01:26 WBC 5.0 (4.8-10.8) X10*3/uL RBC 4.41 (4.20-5.50) X10*6/uL Hgb 12.0 (12.0-16.0) g/dl Hct 37.6 (37.0-47.0) % MCV 85.3 (80.0-98.0) fL MCH 27.2 (27.0-33.0) pg MCHC 31.9 (31.0-35.0) g/dl RDW 13.1 (11.0-16.0) % Plt Count 231 (160-400) X10*3/uL MPV 9.6 (9.4-12.3) fL Immature Gran % (Auto) 0.0 (0.0-0.4) % Neut % (Auto) 37.0 L (45-73) % Lymph % (Auto) 47.6 H (20-40) % [place] % (Auto) 9.8 (2-11) % Eos % (Auto) 5.4 H (0-4) % Baso % (Auto) 0.2 (0-2) % Lymph # (Auto) 2.4 (1.2-4.9) X10*3/uL [place] # (Auto) 0.5 (0.1-1.2) X10*3/uL Eos # (Auto) 0.3 (0.0-0.4) X10*3/uL Baso # (Auto) 0.0 (0.0-0.2) X10*3/uL Abs Immat Gran (auto) 0.00 (0.00-0.03) X10*3/uL Absolute Neuts (auto) 1.8 L (2.0-8.3) x10*3/uL Absolute Nucleated RBC 0.000 (0.0-0.012) X10*3/uL Nucleated RBC % (auto) 0.0 (0.0-0.2) /100WBC ESR 14 (0-20) MM/HR Sodium 143 (135-145) mmol/L Potassium 3.4 (3.3-5.1) mmol/L Chloride 112 H (96-108) mmol/L Carbon Dioxide 22 (22-29) mmol/L Anion Gap 12 (12-20) BUN 26 H (9-16) mg/dL Creatinine 1.03 (0.5-1.4) mg/dL Estim Creat Clear Calc 45.3 Estimated GFR 52 Random Glucose 98 (60-115) mg/dL Calcium 9.0 D (8.4-10.2) mg/dL Total Bilirubin 0.3 (0.0-1.0) mg/dL AST 37 H (5-31) U/L ALT 41 H (0-31) U/L Alkaline Phosphatase 76 (39-117) U/L C-Reactive Protein 0.42 (< or = 0.50) mg/dL Total Protein 7.6 (6.5-8.0) g/dL Albumin 4.2 (3.5-5.0) g/dL S. pyogenes GrpA LORENZO Negative (Negative) Independent Interpretation I performed an independent interpretation of an: CT Scan (Soft tissue neck CT:1. Postsurgical changes of the stomach are redemonstrated suggesting prior gastric sleeve procedure. No bowel obstruction or free intraperitoneal air demonstrated. No fluid collections visualized. 2. Mild bowel wall thickening present at the duodenal sweep which may represent ) Radiology Impression Discussion of test interpretation with radiology: I have reviewed the radiologist's reading. Discharge Plan Discharge Clinical Impression: Cellulitis of face, Acute parotitis Patient Disposition: Home, Self-Care Instructions: Sialoadenitis (ED) Prescriptions: New cephalexin 500 mg capsule 500 mg PO TID 7 Days Qty: 21 0RF doxycycline hyclate 100 mg tablet 100 mg PO BID Qty: 10 0RF No Action amlodipine 5 mg tablet 1 tab PO DAILY Flovent HFA 110 mcg/actuation HFA aerosol inhaler 2 puff PO BID hydrochlorothiazide 12.5 mg tablet 12.5 mg PO DAILY omeprazole 40 mg capsule,delayed release(DR/EC) 40 mg PO DAILY albuterol sulfate 90 mcg/actuation HFA aerosol inhaler 0 mcg inhalation fluticasone propion-salmeterol [Wixela Inhub] 250-50 mcg/dose blister with device 1 ea inhalation BID fluticasone propionate 50 mcg/actuation spray,suspension 1 spray intranasal DAILY acetaminophen 500 mg tablet 500 mg PO Q6H PRN Fish Oil 120-180 mg capsule 1 cap PO DAILY ascorbic acid (vitamin C) 500 mg capsule PO vitamin A palmitate 3,000 mcg (10,000 unit) capsule 3,000 mcg PO QWEEK vitamin B complex [B Complex-Vitamin B12] Tablet 1 tab PO DAILY Print Language: Swedish
[2024-04-06] MEDS: iohexoL 350 MG/ML 100 ML INFUS..BTL 70 ML IV (03:18)
[2024-04-06 03:52] VITALS: BP 154/62; PULSE 62; RESP 16; TEMP 36.6; O2SAT 96
[2024-04-06] MEDS: Doxycycline Monohydrate 100 MG CAPSULE PO (04:25)
[2024-04-06] MEDS: cephALEXin 500 MG CAPSULE PO (04:25)
[2024-04-06 05:27] VITALS: BP 121/60; PULSE 60; RESP 16; TEMP 36.6; O2SAT 95
[2024-04-06 05:55] VITALS: BP 121/60; PULSE 60; RESP 16; TEMP 36.6; O2SAT 95
== END 2024-04-06 06:00 | disposition home or self-care (01) ==
PROVIDERS: Emergency Provider Emergency Medicine
DX: L03.211 Cellulitis of face (principal); K11.21 Acute sialoadenitis; M54.2 Cervicalgia; Z79.899 Other long term (current) drug therapy
CPT/HCPCS: 36415; 70491; 80053; 85025; 85652; 86140; 87651; 99284; Q9967

== ENCOUNTER → 2024-04-06 02:19 | Outpatient (BNV) | payer OTHER, SELFPAY | PROVIDERS: Emergency Provider Emergency Medicine; Visit Provider Radiology Diagnostic Radiology | DX: R22.1 Localized swelling, mass and lump, neck (principal) | CPT/HCPCS: 70491 ==

== ENCOUNTER 2024-05-11 12:29 | Outpatient (REF) | payer OTHER, SELFPAY ==
--- OUTSIDE RECORDS SUMMARY | 2024-05-11 12:32 | XMS_ITS | Encounter Summary ---
Author Organization [employer] Address [address] [place] [address] Care Team Providers Care Strategic Debriefing Officer Name Role Phone Autumn Chong MD Primary Care Provider [phone] Leroy Shabazz PharmD Unavailable [phone] Encounter Details Date Type Department Care Team ([facility] st Contact Info) Description 04/04/2024 Orders Only [facility] [address] [place], [place] [phone] Les Aquino MD [address] [place], [place] [phone] Social History Tobacco Use Types Packs/Day Years Used Date Smoking Tobacco: Never Passive Smoke Exposure: Never Smokeless Tobacco: Never Alcohol Use Standard Drinks/Week Comments Yes 2 (1 standard drink = 0.6 oz pur e alcohol) Occasionally Depression Answer Date Recorded Patient Health Questionnaire-9 Score 0 07/06/2023 Patient Health Questionnaire-9 Score 0 07/06/2023 Last PHQ-9: Questionnaire Data Not on file 0 07/06/2023 Housing Stability Answer Date Recorded What is your housing situation today? I have nicolas linda [address] you li ve. Do you have problems with any of the following? None of the above 2023 Food Insecurity Answer Date Recorded Within the past 12 months, y ou worried that your food would run out before you got money to buy more: Never True 2023 Within the past 12 months,th e food you bought just didn't last and you didn't have enough money to get more: Never True Transportation Answer Date Recorded In the past 12 months, has l ack of transportation kept you from medical appts, meetings, work or from getting things needed for daily living? No 2023 Utilities Answer Date Recorded In the past 12 months, has t he electric, gas, oil or water company threatened to shut off services in your home? No 2023 Depression Answer Date Recorded Patient Health Questionnaire-2 Score 0 07/06/2023 Comments Unknown Sex and Gender Information Value Date Recorded Sex Assigned at Female 02/02/2022 10:23 AM EDT Legal Sex Female 10:23 AM EDT Gender Identity Female 02/02/2022 10:23 AM EDT Sexual Orientation Straight 02/02/2022 10 :23 AM EDT documented as of this encounter Plan of Treatment Not on file documented as of this encounter Goals Goal Patient Goal Type Associated Problems Recent Progress Patient-Stated? Author Blood Pressure < 150/90 Blood Pressure 158/83(2024 12:00 PM EST) No Leroy Shabazz, Marija Note: Per JNC-8, Age>60 years old, No history of CKD or DM documented as of this encounter Visit Diagnoses Not on filedocumented in this encounter Additional Health Concerns Assessment Noted Time PHQ-9 Depression Total Score: 0 07/06/19 24 11:10 AM EDT documented as of this encounter Care Teams Strategic Debriefing Officer Relationship Specialty Start Date End Date Autumn Chong MD [address] [place] [address] PCP - General Family Medicine 09/25/21 Leroy Shabazz, Marija [address] [place] [address] Pharmacist Internal Medicine 10/12/22 documented as of this encounter
--- OUTSIDE RECORDS SUMMARY | 2024-05-11 12:32 | XMS_ITS | Encounter Summary ---
Author Organization [employer] Address [address] [place] [address] Care Team Providers Care Ship Keeper Name Role Phone Autumn Chong MD Primary Care Provider [phone] Leroy Shabazz PharmD Unavailable [phone] Reason for Visit * Reason Onset Date Comments chart prep 05/09/2024 Encounter Details Date Type Department Care Team ([facility] st Contact Info) Description 05/09/2024 Telephone [facility] [address] [place], [place] [phone] Chelsy Kohler MA chart prep Social History Tobacco Use Types Packs/Day Years [...] AM EDT documented as of this encounter Miscellaneous Notes * Telephone Encounter - Chelsy Kohler MA - 05/09/2024 11:12 AM EST ..Chart Prep Labs: not done 01/27/24 Images: not applicable Vaccines due: RSV in Pharmacy Due Referrals: Completed Screenings: Not Applicable Overdue care gaps: Sbirt documented in this encounter Plan of Treatment Not on [...] documented as of this encounter Care Teams Ship Keeper Relationship Specialty Start Date End Date Autumn Chong MD [address] [place] [address] PCP - General Family Medicine 09/25/21 Leroy Shabazz, PharmD [address] [place] [address] Pharmacist Internal Medicine 10/12/22 documented as of this encounter
--- OUTSIDE RECORDS SUMMARY | 2024-05-11 12:32 | XMS_ITS | Encounter Summary ---
Author Organization [employer] Address [address] [place] [address] Care Team Providers Care Supersonic Engineer Name Role Phone Autumn Chong MD Primary Care Provider [phone] Leroy Shabazz PharmD Unavailable [phone] Encounter Details Date Type Department Care Team (Latest Contact Info) Description 05/11/2024 Travel Social History Tobacco Use Types Packs/Day Years [...] documented as of this encounter Care Teams Supersonic Engineer Relationship Specialty Start Date End Date Autumn Chong MD [address] [place] [address] PCP - General Family Medicine 09/25/21 Leroy Shabazz, KaroD [address] [place] [address] Pharmacist Internal Medicine 10/12/22 documented as of this encounter
--- OUTSIDE RECORDS SUMMARY | 2024-05-11 12:32 | XMS_ITS | Continuity of Care Document ---
Author Organization [facility] Address [address] [place] [phone] Phone Care Team Providers Care Generator Man Name Role Phone Elvin Handy M.D. Unavailable Advance Directives Directive Yes / No Effective Date File Name No Information Encounters Encounter Description Practice Location Reason(s) For Visit Diagnoses Date Provider Providers Copied on Encounter [facility], [address] [place] [address], [id number], [phone] [facility] No Information Rozina Oconnor. [address] [place] [address], [id number] , [place]. tel: [phone] Referring Provider: Elvin Wang, [address] [place] [address], [id number]. [phone] Family History Family Member Type Diagnosis Age [...]
--- OUTSIDE RECORDS SUMMARY | 2024-05-11 12:32 | XMS_ITS | Encounter Summary ---
Author Organization [employer] Address [address] [place] [address] Care Team Providers Care Bowling Ball Marker Name Role Phone Autumn Chong MD Primary Care Provider Leroy Shabazz PharmD Unavailable [phone] Reason for Visit * Reason Comments Med Refill Encounter Details Date Type Department Care Team ([facility] Contact Info) Description 08/17/2022 Refill [facility] [address] [place], [place] [phone] Marito Wing MD [address] [place] [address] Gastroesophageal reflux disease, unspecified whether esophagitis present Social History Tobacco Use Types Packs/Day Years Used Date Smoking Tobacco: Former Cigarettes Passive Smoke Exposure: Never Smokeless Tobacco: Never Alcohol Use Standard Drinks/Week Comments Yes 2 (1 standard drink = 0.6 oz pur e alcohol) Occasionally Depression Answer Date Recorded Patient Health Questionnaire-9 Score 0 06/03/2022 Depression Answer Date Recorded Patient Health Questionnaire-2 Score 0 06/03/2022 Comments Unknown Sex and Gender Information Value Date Recorded Sex Assigned at Female 02/02/2022 10:23 AM EDT Legal Sex Female 10:23 AM EDT Gender Identity Female 02/02/2022 10:23 AM EDT Sexual Orientation Straight 02/02/2022 10 :23 AM EDT COVID-19 Exposure Response Date Recorded In the last 10 days, have yo u been in contact with someone who was confirmed or suspected to have Coronavirus/COVID-19? No / Unsure 08/20/2022 9:05 AM EDT documented as of this encounter Plan of Treatment Not on file documented as of this encounter Visit Diagnoses Diagnosis Gastroesophageal reflux disease, unspecified whether esophagitis present documented in this encounter Additional Health Concerns Assessment Noted Time PHQ-9 Depression Total Score: 0 06/04/19 23 11:23 AM EST documented as of this encounter Care Teams Bowling Ball Marker Relationship Specialty Start Date End Date Autumn Chong MD [address] [place] [address] PCP - General Family Medicine 09/25/21 Leroy Shabazz, KaroD [address] [place] [address] Pharmacist Internal Medicine 10/12/22 documented as of this encounter
--- OUTSIDE RECORDS SUMMARY | 2024-05-11 12:32 | XMS_ITS | Encounter Summary ---
Author Organization [email or web address] Address [address] [place] [address] Care Team Providers Care Medicine Aide Name Role Phone Autumn Chong MD Primary Care Provider [phone] Leroy Shabazz PharmD Unavailable Reason for Visit * Reason Comments Med Refill Encounter Details Date Type Department Care Team ([facility] Contact Info) Description 05/31/2023 Refill [facility] [address] [place], [place] [phone] Rajani Riggs FNP Essential hypertension Social History Tobacco Use Types Packs/Day Years Used Date Smoking Tobacco: Former Cigarettes Passive Smoke Exposure: Never Smokeless Tobacco: Never Alcohol Use Standard Drinks/Week Comments Yes 2 (1 standard drink = 0.6 oz pur e alcohol) Occasionally Depression Answer Date Recorded Patient Health Questionnaire-9 Score 0 06/03/2022 Housing Stability Answer Date Recorded What is [...] as of this encounter Visit Diagnoses Diagnosis Essential hypertension Unspecified essential hypertension documented in this encounter Additional Health Concerns Assessment Noted Time PHQ-9 Depression Total Score: 0 06/04/19 23 11:23 AM EST documented as of this encounter Care Teams Medicine Aide Relationship Specialty Start Date End Date Autumn Chong MD [address] [place] [address] PCP - General Family Medicine 09/25/21 Leroy Shabazz, PharmD [address] [place] [address] Pharmacist Internal Medicine 10/12/22 documented as of this encounter
--- OUTSIDE RECORDS SUMMARY | 2024-05-11 12:32 | XMS_ITS | Encounter Summary ---
Author Organization [employer] Address [address] [place] [address] Care Team Providers Care Cisco Consultant Name Role Phone Autumn Chong MD Primary Care Provider Leroy Shabazz PharmD Unavailable [phone] Encounter Details Date Type Department Care Team ([facility] st Contact Info) Description 05/11/2024 11:15 AM EST Office Visit [facility] [address] [place], [place] [phone] Autumn Chong MD [address] [place], [place] [phone] Mild intermittent asthma without complication (Primary Dx); Essential hypertension; Mild cognitive impairment; Dyslipidemia Social History Tobacco Use Types Packs/Day Years [...] AM EDT documented as of this encounter Last Filed Vital Signs Vital Sign Reading Time Taken Comments Blood Pressure 158/83 05/11/2024 12:00 PM EST Pulse 80 05/11/2024 12:00 PM EST Temperature 36.5 ??C (97.7 ??F) 05/11/2024 12:[address] Respiratory Rate 15 05/11/2024 12:00 PM EST Oxygen Saturation 95% 05/11/2024 12:00 PM EST Inhaled Oxygen Concentration - - Weight 71.3 kg (157 lb 3.2 oz) 05/11/2024 12:00 PM EST Height - - Body Mass Index 30.22 09/17/2023 11:15 AM EDT documented in this encounter Plan of Treatment Not on file documented as of this encounter Goals Goal Patient Goal Type Associated Problems Recent Progress Patient-Stated? Author Blood Pressure < 150/90 Blood Pressure 158/83(2024 12:00 PM EST) Leroy Ibarra, PharmD Note: Per JNC-8, Age>60 years old, No history of CKD or DM documented as of this encounter Visit Diagnoses Diagnosis Mild intermittent asthma without complication- Primary Essential hypertension Unspecified essential hypertension Mild cognitive impairment Mild cognitive impairment, so stated Dyslipidemia Other and unspecified hyperlipidemia documented in this encounter Additional Health Concerns Assessment Noted Time PHQ-9 Depression Total Score: 0 07/06/19 24 11:10 AM EDT documented as of this encounter Care Teams Cisco Consultant Relationship Specialty Start Date End Date Autumn Chong MD [address] [place] [address] PCP - General Family Medicine 09/25/21 Leroy Shabazz, PharmD [address] [place] [address] Pharmacist Internal Medicine 10/12/22 documented as of this encounter
--- OUTSIDE RECORDS SUMMARY | 2024-05-11 12:32 | XMS_ITS | Encounter Summary ---
Author Organization [employer] Address [address] [place] [address] Care Team Providers Care Food And Beverage Checker Name Role Phone Autumn Chong MD Primary Care Provider [phone] Leroy Shabazz PharmD Unavailable [phone] Reason for Visit * Reason Comments BP Check Encounter Details Date Type Department Care Team (Latest Contact Info) Description 04/17/2024 10:00 AM EST Clinical Support [facility] [address] [place], [place] [phone] Miranda Cohen, RN [address] [place] [address] Essential hypertension Social History Tobacco Use Types Packs/Day Years Used Date Smoking Tobacco: Never Passive Smoke Exposure: Never Smokeless Tobacco: Never Tobacco Cessation:Counseling Given: Not Answered Alcohol Use Standard Drinks/Week Comments Yes 2 [...] Sign Reading Time Taken Comments Blood Pressure 142/96 04/17/2024 10:16 AM EST Pulse 61 04/17/2024 10:16 AM EST Temperature 36.6 ??C (97.8 ??F) 04/17/2024 10:[address] Respiratory Rate 16 04/17/2024 10:16 AM EST Oxygen Saturation 98% 04/17/2024 10:16 AM EST Inhaled Oxygen Concentration - - Weight - - Height - - Body Mass Index - - documented in this encounter Progress Notes * Miranda Cohen, RN - 04/17/2024 10:00 AM EST S: Pt here for BP check nurse visit. At last 3 provider visits, pt's blood pressure consistently over goal. Most recently 04/04/25 it was 155/72. No changes made. Pt advised to check blood pressure at home and follow up with PCP for uncontrolledhypertension. Pt current blood pressure medication regimen: amlodipine-atorvastatin 5-10mg daily and olmesartan 40mg daily. Today, pt denies any blurred vision, shortness of breath, chest pain, dizziness, or headaches. States, feeling much better . Pt reports compliance with BP medication regimen, confirms that BP medication was taken today. Pt very upset because she thought she was seeing PCP today. Repeatedly telling this RN that, this is a waste of my time . O: blood pressure in office 142/96, heart rate 61, RR 16, skin warm, pink, and dry. Reports taking blood pressure at home but didn't bring log. States that blood pressure at home is, around the same . A: Was unable to complete most pt education d/t pt refusing. Did discuss salt intake briefly. Pt states tries to work on lowering salt but likes salt on her food. P: Booked pt a follow up with PCP for May. Pt to call C if SBP >150 or DBP>100 consistantly Pt to F/U PRN Pt agrees with plan Miranda Cohen RN documented in this encounter Plan of Treatment [...] documented as of this encounter Care Teams Food And Beverage Checker Relationship Specialty Start Date End Date Autumn Chong MD [address] [place] [address] PCP - General Family Medicine 09/25/21 Leroy Shabazz, PharmDen [address] [place] [address] Pharmacist Internal Medicine 10/12/22 documented as of this encounter
--- OUTSIDE RECORDS SUMMARY | 2024-05-11 12:32 | XMS_ITS | Encounter Summary ---
Author Organization [facility] [facility] Address [address] [facility] [address] [facility] [address] [place] [address] Care Team Providers Care Charge Out Clerk Name Role Phone Autumn Chong MD Primary Care Provider [phone] Leroy Shabazz PharmD Unavailable [phone] Encounter Details Date Type Department Care Team (Latest Contact Info) Description 08/21/2021 Abstract [facility] Dental, Provider, DDS Social History Tobacco Use Types Packs/Day Years Used Date Smoking Tobacco: Never Assessed Comments Unknown Sex and Gender Information Value Date Recorded Sex Assigned at Female 02/02/2022 10:23 AM EDT Legal Sex Female 10:23 AM EDT Gender Identity Female 02/02/2022 10:23 AM EDT Sexual Orientation Straight 02/02/2022 10 :23 AM EDT documented as of this encounter Plan of Treatment Not on file documented as of this encounter Visit Diagnoses Not on filedocumented in this encounter Care Teams Charge Out Clerk Relationship Specialty Start Date End Date Autumn Chong MD [address] [place] [address] PCP - General Family Medicine 09/25/21 Leroy Shabazz, PharmD [address] [place], [place] [phone] Pharmacist Internal Medicine 10/12/22 documented as of this encounter
--- OUTSIDE RECORDS SUMMARY | 2024-05-11 12:32 | XMS_ITS | Encounter Summary ---
Author Organization [email or web address] Address [address] [place] [address] Care Team Providers Care College Archivist Name Role Phone Autumn Chong MD Primary Care Provider [phone] Leroy Shabazz PharmD Unavailable [phone] Reason for Visit * Reason Comments Med Change Request Encounter Details Date Type Department Care Team ([facility] Contact Info) Description 03/18/2023 Refill [facility] [address] [place], [place] [phone] Autumn Chong MD [address] [place], [place] [phone] Nasal congestion Social History Tobacco Use Types Packs/Day Years [...] as of this encounter Visit Diagnoses Diagnosis Nasal congestion Other diseases of nasal cavity and sinuses documented in this encounter Additional Health Concerns Assessment Noted Time PHQ-9 Depression Total Score: 0 06/04/19 23 11:23 AM EST documented as of this encounter Care Teams College Archivist Relationship Specialty Start Date End Date Autumn Chong MD [address] [place] [address] PCP - General Family Medicine 09/25/21 Leroy Shabazz, Marija [address] [place] [address] Pharmacist Internal Medicine 10/12/22 documented as of this encounter
--- OUTSIDE RECORDS SUMMARY | 2024-05-11 12:32 | XMS_ITS | Clinical Summary ---
Author Organization [employer] Address [address] [place] [address] Care Team Providers Care Records Management Technician Name Role Phone Autumn Chong MD Primary Care Provider [phone] Leroy Shabazz PharmD Unavailable Allergies Active Allergy Reactions Criticality Noted Date Comments Cat Dander High 12/17/2015 Dog Epithelium High 12/17/2015 Dog Epithelium (Canis Lupus Familiaris) High 12/17/2015 Lisinopril Cough 09/25/2021 Pollen Extract 04/01/2022 Zolpidem 09/25/2021 Other reaction(s): Drowsy Medications Apple Cider Vinegar 500 MG tablet Patient reports buying OTC Active omega-3 (Fish Oil) 1200 MG capsule Patient reports purchasing OTC Active diclofenac sodium 3 % gelIndications:Ri ght foot pain,Plantar fasciitis of right foot apply by topical route once or twice a day as needed for the area of pain (heel) Strength: 3 % 60 g 2 Active ibuprofen 800 MG tablet Take 800 mg by mouth every 8 (eight) hours. 3 Active SALINE MIST 0.65 % nasal sprayIndications: Nasal congestion USE 1-2 SPRAY IN EACH NOSTRIL EVERY 2-3 HOURS NEEDED FOR NASAL CONGESTION 44 mL 1 3 Active ascorbic acid (Vitamin C) 1000 MG tablet Take 1 tablet by mouth once daily 90 tablet 3 3 Active cromolyn (Opticrom) 4 % ophthalmic solution PLEASE SEE ATTACHED FOR DETAILED DIRECTIONS 3 Active cyclobenzaprine (Flexeril) 10 MG tablet TAKE 1 TABLET (10 MG) BY MOUTH AT BEDTIME NEEDED FOR MUSCLE SPASM 90 tablet 1 4 Active Blood Pressure Monitor kitIndications:Es sential hypertension Use to check blood pressure daily as directed 1 kit 4 Active albuterol 108 (90 Base) MCG/ACT inhalerIndication s:Mild intermittent asthma without complication INHALE 2 PUFFS EVERY 6 HOURS IF NEEDED FOR WHEEZING. 8.5 g 1 4 Active alendronate (Fosamax) 70 MG tabletIndications :Osteopenia of multiple sites TAKE 1 TABLET BY MOUTH EVERY WEEK IN THE MORNING, AT LEAST 30 MIN BEFORE FIRST FOOD, BEVERAGE, OR MEDICATION OF DAY 12 tablet 3 4 Active Jublia 10 % solutionIndicatio ns:Onychomycosis APPLY TO AFFECTED TOENAILS EVERY DAY FOR 48 WEEKS Strength: 10 % 4 mL 2 4 Active amLODIPine-atorva statin (Caduet) 5-10 MG tabletIndications :Essential hypertension,Dysl ipidemia Take 1 tablet by mouth in the morning. 90 tablet 3 4 07/06/19 25 Active olmesartan (BENIcar) 40 MG tabletIndications :Essential hypertension Take 1 tablet (40 mg) by mouth in the morning. 90 tablet 3 4 Active omeprazole (PriLOSEC) [address] capsuleIndication s:Gastro-esophage al reflux disease without esophagitis TAKE 1 TABLET (20 MG) BY MOUTH BEFORE BREAKFAST DO NOT CRUSH, CHEW, OR SPLIT 90 capsule 3 4 Active cetirizine (ZyrTEC) 10 MG tablet TAKE 1 TABLET BY MOUTH EVERY DAY 90 tablet 3 4 Active acetaminophen (Tylenol 8 Hour) 650 MG ER tablet Take 1 tablet (650 mg) by mouth every 8 (eight) hours if needed for mild pain. Do not crush, chew, or split. 90 tablet 1 4 Active fluticasone (Flonase) 50 MCG/ACT nasal sprayIndications: Allergic rhinitis, unspecified seasonality, unspecified trigger SPRAY 1 SPRAY INTO EACH NOSTRIL EVERY DAY 48 mL 1 4 Active famotidine (Pepcid) 40 MG tablet TAKE 1 TABLET BY MOUTH EVERYDAY AT BEDTIME 90 tablet 3 4 Active montelukast (Singulair) 10 MG tabletIndications :Allergic rhinitis, unspecified seasonality, unspecified trigger TAKE 1 TABLET BY MOUTH EVERY DAY IN THE MORNING 90 tablet 3 4 Active memantine (Namenda) 5 MG tablet Take 5 mg by mouth 2 times daily. 4 Active Ketotifen Fumarate 0.035 % solution Administer 1 drop into affected eye(s) in the morning and 1 drop at noon. 5 mL 5 Active Active Problems Problem Noted Date Diagnosed Date Acquired hallux varus 01/29/2024 Vertigo 11/17/2023 Overview (11/17/2023): Probably related to recent URI, rx meclizine prn. Confrim drop in Hb today, order labs Encouraged increased PO water/fluids Anemia 11/17/2023 Overview (11/17/2023): Three point Hb drop compared to last year's (10/2022) Order cbc and ferritin to compare with similar lab FU prn Anxiety 10/15/2023 Assessment & Plan (10/15/2023 7:09 PM EDT): - GAD7 score 8 today - She has retired and reports insomnia - She sees a neurologist for MCI / TBI / subdural hematoma - consider offering CBT referral - she has tried acupuncture in the past for pain Chronic pain of right knee 10/14/2023 Assessment & Plan (10/14/2023 11:00 AM EDT): -evaluate with XR -take acetaminophen 650 mg every 8 hours as needed Dyslipidemia 07/06/2023 Assessment & Plan (01/27/2024 12:42 PM EDT): - current medication: atorvastatin 10 mg at bedtime (as Caduet, a combination with amlodipine) - last lipid profile 03/30/23 - continue working on lifestyle modifications - recheck lipid profile and hepatic profile Assessment & Plan (10/14/2023 11:02 AM EDT): - current medication: atorvastatin 10 mg at bedtime (as Caduet, a combination with amlodipine) - last lipid profile 03/30/23 - continue working on lifestyle modifications - recheck lipid profile and hepatic profile Assessment & Plan (07/17/2023 7:50 PM EDT): - current medication: atorvastatin 10 mg at bedtime (as Caduet, a combination with amlodipine) - last lipid profile 03/30/23 - continue working on lifestyle modifications - recheck lipid profile and hepatic profile Kidney stones 12/31/2022 Assessment & Plan (01/01/2023 11:30 AM EDT): - incidental finding on US on 11/11/22, non-obstructive - check lab - adequate hydration - repeat US in 1 year Cervical radiculopathy 12/31/2022 Assessment & Plan (03/31/2023 4:12 PM EST): Pt is not interested in invasive Tx -continue conservative management -consider MRI if worsening symptoms -continue acupuncture Assessment & Plan (12/31/2022 10:44 AM EDT): Pt is not interested in invasive Tx -continue conservative management -consider MRI, if SxS worsens -continue acupuncture Chronic toe pain, right foot 12/31/2022 Assessment & Plan (10/14/2023 11:00 AM EDT): -previously seeing manager radio, recommended to follow-up Overweight 09/20/2022 Allergic rhinitis 09/09/2022 Assessment & Plan (09/20/2022 6:34 PM EDT): -continue cetirizine -add Montelukast Gastroesophageal reflux disease 09/09/2022 Assessment & Plan (07/17/2023 7:39 PM EDT): - seen by GI, last in October 2022 - continue famotidine and omeprazole as prscribed Assessment & Plan (03/31/2023 4:11 PM EST): - seen by GI, last in October 2022 - continue famotidine and omeprazole as prscribed Assessment & Plan (09/20/2022 6:30 PM EDT): Prescribed Famotidine and Omeprazole in the past She states she is not taking Mild cognitive impairment 09/09/2022 Assessment & Plan (01/29/2024 6:16 AM EDT): -Seen by neurologist on 09/01/23, for 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 She refused to take memantine back. 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 -Prescribed Donepezil Asthma 06/03/2022 Assessment & Plan (01/27/2024 12:40 PM EDT): -PFT on 06/25/22, Mild-Asthma -Previously on mometasone but patient has not been using it, will discontinue at this time -Continue albuterol prn Assessment & Plan (10/14/2023 10:58 AM EDT): -PFT on 06/25/22, Mild-Asthma -Previously on mometasone but patient has not been using it, will discontinue at this time -Continue albuterol prn Assessment & Plan (03/31/2023 4:15 PM EST): -PFT on 06/25/22, Mild-Asthma -Change Flovent to mometasone (Asmanex) -Continue albuterol prn Assessment & Plan (12/31/2022 10:39 AM EDT): PFT on 06/25/22, Mild-Asthma -Continue albuterol prn -pt has been prescribed Flovent in the past and she is not using it everyday Assessment & Plan (09/09/2022 10:28 AM EDT): PFT on 06/25/22, Mild-Asthma -Continue albuterol prn -pt has been prescribed Flovent in the past and she is not using it everyday Assessment & Plan (06/03/2022 3:56 PM EST): -continue albuterol HFA prn -evaluate with PFT Osteopenia of multiple sites 06/03/2022 Assessment & Plan (01/27/2024 3:53 PM EDT): -DEXA on 09/30/21 showed the lowest T-Score of - 2.0 in lumbar spine. -DEXA on 10/12/23 showed the lowest T-score of - 2.3 in femoral neck -Continue bisphosphonate 70mg weekly -Cont weight bearing exercise as tolerated -Repeat DEXA in 2 years Assessment & Plan (07/17/2023 7:40 PM EDT): -DEXA on 09/30/21 showed the lowest T-Score of - 2.0 in lumbar spine. -Continue bisphosphonate 70mg weekly -Cont weight bearing exercise as tolerated -Repeat DEXA in September 2023 Assessment & Plan (03/31/2023 4:09 PM EST): -DEXA on 09/30/21 showed the lowest T-Score of - 2.0 in lumbar spine. -Continue bisphosphonate 70mg weekly -Cont weight bearing exercise as tolerated -Repeat DEXA in September 2023 Assessment & Plan (09/20/2022 6:33 PM EDT): Dexa Scan on 09/30/21 showed the lowest T-Score of - 2.0 in lumbar spine. -Continue bisphosphonate 70mg weekly -Cont weight bearing exercise, if possible Assessment & Plan (06/03/2022 3:58 PM EST): Dexa Scan on 09/30/21 showed the lowest T-Score of minus 2.0 in lumbar spine. -Patient will start Fossamax 70mg weekly -Cont weight bearing exercise, if possible Fibromyalgia 04/21/2022 Assessment & Plan (10/14/2023 10:59 AM EDT): -Pt disagrees that her pain is due to fibromyalgia; she perceives that she tries to keep herself physically active, using muscles and joints, and that is why she has pain -encouraged to continue acupuncture -continue cyclobenzaprine for pain/spasm Assessment & Plan (09/20/2022 6:33 PM EDT): -Pt disagrees that her pain is due to fibromyalgia; she perceives that she tries to keep herself physically active, using muscles and joints, and that is why she has pain -encouraged to continue acupuncture -will prescribe cyclobenzaprine for pain/spasm Assessment & Plan (06/03/2022 11:46 AM EST): Pt received monthly acupuncture History of subdural hematoma 03/11/2022 Assessment & Plan (01/29/2024 6:16 AM EDT): - Injury [place] - Initial CT showed left frontoparietal subdural hematoma - Evaluated by neurosurgeon and treated with 21 days of tranexamic acid. - Follow-up CT showed resolving hematoma - Seen by neurologist for evaluation of MCI / possible post-concussion syndrome Assessment & Plan (10/15/2023 7:09 PM EDT): - Injury [place] - Initial CT showed left frontoparietal subdural hematoma - Evaluated by neurosurgeon and treated with 21 days of tranexamic acid. - Follow-up CT showed resolving hematoma - Seen by neurologist for evaluation of MCI / possible post-concussion syndrome Assessment & Plan (12/31/2022 4:07 AM EDT): - Injury [place] Dec [place] - Initial CT showed left frontoparietal subdural hematoma - Evaluated by neurosurgeon and treated with 21 days of tranexamic acid. - Follow-up CT showed resolving hematoma - Referred to neurologist for evaluation of MCI / possible post-concussion syndrome - Seen by neurologist. Prescribed Donepezil for MCI. - Assessment & Plan (06/03/2022 4:03 PM EST): ?? Injury in Dec [place] a cruise ship ?? Initial CT showed left frontoparietal subdural hematoma ?? Evaluated by neurosurgeon and treated with 21 days of tranexamic acid. ?? Follow-up CT showed resolving hematoma ?? Referred to neurologist for evaluation of MCI / possible post-concussion syndrome; upcoming appt on 06/16/22. Assessment & Plan (04/01/2022 10:17 AM EST): ?? Injury in Dec 2021 [place] ship ?? Evaluated by neurosurgeon and treated with 21 days of tranexamic acid. ?? Follow-up CT 01/22/22 showed resolving SDH ?? No current concerning symptoms Assessment & Plan (03/11/2022 4:06 PM EST): ?? Injury in Dec [place] ship ?? Initial CT showed left frontoparietal subdural hematoma ?? Evaluated by neurosurgeon and treated with 21 days of tranexamic acid. ?? Follow-up CT showed resolving hematoma ?? Refer to neurologist for evaluation of MCI / possible post-concussion syndrome Essential hypertension 10/27/2021 Assessment & Plan (01/29/2024 6:19 AM EDT): -Goal BP < 150/90 per JNC-8, < 130/80 per ACC/AHA guideline -BP was borderline today, confusion about medications and has not been taking as prescrbed; recheck was 148/72 on the left and 146/72 on the right -Continue checking BP at home -Continue Olmesartan 40 mg daily, questionable medication adherence -Continue Amlodipine 5 mg (combo with atorvastatin 10 mg as Caduet) daily -Continue working on lifestyle modifications -Treatment Hx: Lisinopril was discontinued due to cough; Losartan was discontinued due to frequent urination ; amlodipine was temporarily held because patient perceived that it caused hot flashes, and Hydrochlorothiazide was discontinued Assessment & Plan (10/14/2023 10:57 AM EDT): -Goal BP < 150/90 per JNC-8, < 130/80 per ACC/AHA guideline -BP not at goal today, confusion about medications and has not been taking as prescrbed -Continue checking BP at home -Continue Olmesartan 40 mg daily -Continue Amlodipine 5 mg (combo with atorvastatin 10 mg as Caduet) daily -Continue working on lifestyle modifications -Treatment Hx: Lisinopril was discontinued due to cough; Losartan was discontinued due to frequent urination ; amlodipine was temporarily held because patient perceived that it caused hot flashes, and Hydrochlorothiazide was discontinued Assessment & Plan (07/17/2023 7:39 PM EDT): -Goal BP < 150/90 per JNC-8, < 130/80 per ACC/AHA guideline -BP not at goal today, confusion about medications and has not been taking as prescrbed -Continue checking BP at home -Continue Olmesartan 40 mg daily -Continue Amlodipine 5 mg (combo with atorvastatin 10 mg as Caduet) daily -Continue working on lifestyle modifications -Treatment Hx: Lisinopril was discontinued due to cough; Losartan was discontinued due to frequent urination ; amlodipine was temporarily held because patient perceived that it caused hot flashes, and Hydrochlorothiazide was discontinued Assessment & Plan (03/31/2023 4:18 PM EST): -Goal BP < 150/90 per JNC-8, < 130/80 per ACC/AHA guideline -BP at goal today, home BP are within acceptable range -Continue Olmesartan 20 mg at bedtime -Continue working on lifestyle modifications -Treatment Hx: Discontinued amlodipine and hydrochlorothiazide -Continue checking BP at home -Treatment Hx: Lisinopril was discontinued due to cough; Losartan was discontinued due to frequent urination ; amlodipine is discontinued due to hot flashes, and Hydrochlorothiazide was discontinued -Follow up in 3-4 mo or sooner prn Assessment & Plan (12/31/2022 10:50 AM EDT): ?? Goal BP < 150/90 per JNC-8, < 130/80 per ACC/AHA guideline ?? BP at goal today, home BP are within acceptable range ?? Start Olmesartan 20 mg at Q[facility] ?? Continue working on lifestyle modifications ?? Discontinue Amlodipine, hydrochlorothiazide ?? Continue checking BP at home ?? Treatment Hx: Lisinopril was discontinued due to cough; Losartan was discontinued due to frequent urination ; amlodipine is discontinued due to Hot-Flashes and Hydrochlorothiazide was discontinued ?? Follow up in 3-4 mo or sooner prn Assessment & Plan (09/20/2022 6:28 PM EDT): ?? Goal BP < 150/90 per JNC-8, < 130/80 per ACC/AHA guideline ?? BP at goal today, home BP are within acceptable range ?? Continue working on lifestyle modifications ?? Continue amlodipine 5 mg daily ?? Continue hydrochlorothiazide 12.5 mg daily ?? Continue checking BP at home ?? Treatment Hx: Lisinopril was discontinued due to cough; Losartan was discontinued due to frequent urination ?? Follow up in 3-4 mo or sooner prn Assessment & Plan (06/04/2022 2:39 AM EST): ?? Goal BP < 150/90 per JNC-8, < 130/80 per ACC/AHA guideline ?? BP at goal today, home BP are within acceptable range ?? Continue working on lifestyle modifications ?? Continue amlodipine 5 mg daily ?? Continue hydrochlorothiazide 12.5 mg daily ?? Continue checking BP at home ?? Treatment Hx: Lisinopril was discontinued due to cough; Losartan was discontinued due to frequent urination Assessment & Plan (04/01/2022 10:15 AM EST): ?? Goal BP < 150/90 per JNC-8, < 130/80 per ACC/AHA guideline ?? Continue working on lifestyle modifications ?? Continue amlodipine 5 mg daily ?? Continue checking BP at home ?? Treatment Hx: Lisinopril was discontinued due to cough; Losartan was discontinued due to frequent urination ?? Advised to monitor BP at home to ensure well controlled before surgery ?? Call [facility] office with any questions or concerns Assessment & Plan (03/11/2022 4:10 PM EST): ?? Goal BP < 150/90 per JNC-8, < 130/80 per ACC/AHA guideline ?? Continue working on lifestyle modifications ?? Continue amlodipine 5 mg daily ?? Continue checking BP at home ?? Treatment Hx: Lisinopril was discontinued due to cough; Losartan was discontinued due to frequent urination Onychomycosis 10/27/2021 Assessment & Plan (07/17/2023 7:39 PM EDT): -efinaconazole solution Resolved Problems Problem Noted Date Diagnosed Date Resolved Date Subdural hematoma 06/03/2022 12/31/2022 Assessment & Plan (12/31/2022 4:05 AM EDT): ?? Injury in Dec 2021 [place] a cruise ship ?? Initial CT showed left frontoparietal subdural hematoma ?? Evaluated by neurosurgeon and treated with 21 days of tranexamic acid. ?? Follow-up CT showed resolving hematoma ?? Referred to neurologist for evaluation of MCI / possible post-concussion syndrome ?? Seen by neurologist. Prescribed Donepezil for MCI. Assessment & Plan (09/20/2022 6:28 PM EDT): ?? Injury in Dec 2021 [place] a cruise ship ?? Initial CT showed left frontoparietal subdural hematoma ?? Evaluated by neurosurgeon and treated with 21 days of tranexamic acid. ?? Follow-up CT showed resolving hematoma ?? Referred to neurologist for evaluation of MCI / possible post-concussion syndrome ?? Seen by neurologist. Prescribed Donepezil for MCI. Assessment & Plan (06/03/2022 4:02 PM EST): -Injury in Dec 2021 while in a cruise trip -01/15/[address] showed subdural hematoma. She was sent [place] [facility] from the radiology department for further evaluation. She was then transferred to [facility] ED for neurosurgery consult. In [facility] ED, she had another CT scan which showed left frontoparietal hematoma 1.3 cm. No subarachnoid hemorrhage. Neurosurgery team came to see the patient in ED, and was advised to take tranexamic acid for 21 days and given an outpatient follow-up appt. -Seen by [facility] neurosurgeon on 01/22/22 after having a repeat MRI, which showed decreased subdural hematoma. She was given reassurance. -Referred to neurologist due to forgetfulness after the injury Encounters Date Type Department Care Team Description 05/11/2024 11:15 AM EST Office Visit [address] [id number] Autumn Chong MD Mild intermittent asthma without complication (Primary Dx); Essential hypertension; Mild cognitive impairment; Dyslipidemia 05/11/2024 Travel 05/09/[address] [address] Chelsy Kohler MA chart prep 04/17/2024 10:00 AM EST Clinical Support [address] [id number] Miranda Cohen RN Essential hypertension 04/17/2024 Travel 04/04/2024 8:40 AM EST Office Visit [facility] [address] [place] [id number] Les Aquino MD Influenza A (Primary Dx); Viral URI 04/04/2024 Orders Only [facility] [address] [place] [id number] Les Aquino MD 03/20/2024 10:20 AM EST Office Visit [facility] [address] [place] [id number] Alan Lau MD Dizziness (Primary Dx) 03/20/2024 Travel from Last 3 Months Immunizations Name Administration Dates Next Due Influenza High-dose Quadriva lent Preservative Free 01/05/2022 Influenza injectable quadriv alent preservative free 12/31/2022 Influenza, High Dose Seasona l, Preservative Free 01/27/2024,03/22/2019,03/13/2016 Mkuund SARS-CoV-2 Vaccination 07/11/2020 Moderna Covid-19 Vaccine 12+ 06/04/2021,10/25/19 21 Pfizer Covid-19 Vaccine 12+ 01/27/2024, 3,02/17/2021 Pfizer Covid-19 Vaccine 12+ Bivalent 03/12/2022 Pneumococcal Conjugate PCV 13 03/22/2019 Pneumococcal Polysaccharide PPSV23 03/18/2021,,03/13/2016 Tdap 10/25/2020,03/22/2019,03/13/2016 Zoster, Recombinant 10/25/2020,03/22/2019 Zoster, live 06/04/2021 Social History Tobacco Use Types Packs/Day Years [...] Orientation Straight 02/02/2022 10 :23 AM EDT Last Filed Vital Signs Vital Sign Reading [...] 3.2 oz) 05/11/2024 12:00 PM EST Height 153.6 cm (5' 0.48 ) 09/17/2023 11:15 AM E DT Body Mass Index 30.22 09/17/2023 11:15 AM EDT Plan of Treatment Health Maintenance Due Date Last Done Comments CT Colonography 1950 FIT DNA/Cologuard 1950 FIT 1950 FOBT 1950 Sigmoidoscopy 1950 Hepatitis C Screening 01/19/1968 RSV Patients and Patients Aged 60 years or older (1 - Risk 60-74 years 1-dose series) 2010 Dental X-Ray: Bitewings 07/16/2018 07/16/19 18, 07/05/2014, 11/02/2012, Additional history exists Dental Oral Exam 02/22/2022 08/21/2021, 01/2020, 07/15/2017, Additional history exists Dental Prophylaxis 02/22/2022 08/21/2021, 0 07/15/2017, 01/07/2017, Additional history exists Depression Screening 07/05/2024 07/06/2023, 07/06/19 24 SDOH Screening 07/05/2024 07/06/2023 Dental X-Ray: Full Mouth 08/22/2024 08/21/2021, 09/04 Colonoscopy 09/02/2024 09/02/2021 Colorectal Cancer Screening 09/02/2024 Alcohol/Substance Use Screening 05/11/2025 05/11/2024 Tobacco Screening 05/11/2025 05/11/2024 Mammogram 07/21/2025 07/22/2023, 03/0 05/2022, 09/30/2021 Lipid Panel 03/30/2028 03/30/2023, 03/0 04/2022, 09/25/2021 DTaP/Tdap/Td Vaccines (4 - Td or Tdap) 10/25/2030 10/25/2020, 03/22/2019, 03/13/2016 Pneumococcal Vaccine: 50+ Years Completed 03/18/2021, 10/25/2020, 03/22/2019, Additional history exists Zoster Vaccines Completed 06/04/2021, 10/04, 03/22/2019 COVID-19 Vaccine Completed 01/27/2024, , 03/12/2022, Additional history exists Influenza Vaccine Completed 01/27/2024, , 01/05/2022, Additional history exists HIB Vaccines Aged Out No longer eligi ble based on patient's age to complete this topic HPV Vaccines Aged Out No longer eligi ble based on patient's age to complete this topic Hepatitis A Vaccines Aged Out No long er eligible based on patient's age to complete this topic Hepatitis B Vaccines Aged Out No long er eligible based on patient's age to complete this topic IPV Vaccines Aged Out No longer eligi ble based on patient's age to complete this topic Meningococcal Vaccine Aged Out No jie yareli eligible based on patient's age to complete this topic RSV under 20 months Aged Out No longe r eligible based on patient's age to complete this topic Rotavirus Vaccines Aged Out No longer eligible based on patient's age to complete this topic Goals Goal Patient Goal Type Associated Problems Recent Progress Patient-Stated? Author Blood Pressure < 150/90 Blood Pressure 158/83(2024 12:00 PM EST) Leroy Ibarra, PharmD Note: Per JNC-8, Age>60 years old, No history of CKD or DM Procedures Procedure Name Priority Date/Time Associated Diagnosis Comments POCT INFLUENZA B (ID NOW RAPID MOLECULAR) Routine 04/04/2024 8:58 AM EST Viral URI POCT INFLUENZA A (ID NOW RAPID MOLECULAR) Routine 04/04/2024 8:58 AM EST Viral URI POCT RAPID COVID ANTIGEN Routine 04/04/2024 8:58 AM EST Viral URI BI MAMMOGRAM SCREENING TOMOSYNTHESIS BILATERAL Routine 07/22/2023 8:50 AM EDT LIPID PANEL WITH REFLEX TO DIRECT LDL Routine 03/30/2023 11:09 AM EST Essential hypertension HM COLONOSCOPY Routine 09/02/2021 PROPHYLAXIS - ADULT Routine 08/21/2021 1 2:00 AM EDT PANORAMIC RADIOGRAPHIC IMAGE Routine 08/21/2021 12:00 AM EDT PERIODIC ORAL EVALUATION - ESTABLISHED PATIENT Routine 08/21/2021 12:00 AM EDT BITEWING - SINGLE RADIOGRAPHIC IMAGE Routine 07/15/2017 12:00 AM EDT from Last 3 Months or Most Recently Relevant to Health Maintenance Results * Influenza B (ID NOW Rapid Molecular) (04/04/2024 8:58 AM EST) Influenza B Negative Negative, Indeterminate [facility] Swab 04/04/2024 8:58 AM EST us Les Aquino MD POINT OF CARE TEST ENTER/EDIT OR DERABLES Final Result [facility] [address] [place] [phone] * (ABNORMAL) Influenza A (ID NOW Rapid Molecular) (04/04/2024 8:58 AM EST) Influenza A Positive( A) Negative, Indeterminate [facility] Swab 04/04/2024 8:58 AM EST us Les Aquino MD POINT OF CARE TEST ENTER/EDIT OR DERABLES Edited Result - Final Performing Organization Address [facility] de Phone Number [facility] [address] [place] [phone] * POCT Rapid COVID Ag (04/04/2024 8:58 AM EST) Rapid COVID Ag Negative [facility] Swab 04/04/2024 8:58 AM EST us Les Aquino MD POINT OF CARE TEST ENTER/EDIT OR DERABLES Final Result Performing Organization Address [facility] de Phone Number [facility] [address] [place] [address] [phone] * BI Mammogram Screening Tomosynthesis Bilateral (07/22/2023 8:50 AM EDT) Anatomical Region Laterality Modality Breast Bilateral Mammography 07/22/2023 8:50 AM EDT Narrative 08/16/2023 2:14 PM EDT ? [facility] [place] ? [address] ?[place] [address] ? Mammography Report ? Signed ? Patient: Tee Simental,Jenny V ?M ?? R#: [id number] ? : 1950 ?Acct:[id number] ? Age/Sex: 73 / F ?ADM Date: 04/18/24 ? Loc: HO.MAMMO ? Attending Dr: Autumn Chong MD ? Ordering Physician: Autumn Chong MD ?Results: 1Negative ? Date of Service: 07/22/23 ?Follow Up: 1 Year From Orig ?? inal Mammogram ? Procedure(s): MM tomosynthesis screening BI ?? Accession Number(s): [id number] ? cc: Autumn Chong MD ? EXAMINATION: ?? MM SCREENING DIGITAL BREAST TOMOSYNTHESIS, BILATERAL ? CLINICAL INFORMATION: ? Screening. Asymptomatic. ? COMPARISON: ?? Mammography: This study is compared with prior exams dating back to ?? 2018. ? TECHNIQUE: ?? Digital breast tomosynthesis is performed in both the craniocaudal and ?? mediolateral oblique views along with computer-aided detection (CAD). ?? Synthesized 2D images are generated from the tomosynthesis. ? FINDINGS: ?? The breasts are almost entirely fatty (ACR BI-RADS breast composition ?? Category a). ? There are no significant masses, abnormal calcifications, or other ?? abnormalities. ? MM/MM tomosynthesis screening BI ?? IMPRESSION: ?? No mammographic evidence of malignancy. ? ASSESSMENT: ? BI-RADS BI-RADS 1 - Negative ? RECOMMENDATION: ?? Routine annual mammography screening. ? 1 year F/U ? This examination should not preclude the clinical evaluation of a ?? suspicious palpable abnormality. ? This patient's information was entered into a reminder system with a ?? target due date for their next mammogram. ? Dictated By: ?Daiana Riley MD ? Signed By: ?<Electronically signed by Daiana Riley MD in OV> ? 08/16/23 1411 ? DD/DT: /18/24 0850 ? TD/TT: ? Qa Automation Engineer: ? Procedure Note Donotuseinterpreter, Image - 08/16/2023 [facility] [address] [place], [place] [address] Mammography Report Signed Patient: Jenny Littlejohn R#: [id number] : 1950Acct:[id number] Age/Sex: 73 / FADM Date: 07/22/23 Loc: HO.MAMMO Attending Dr: Autumn Chong MD Ordering Physician: Autumn Chong MDResults: 1Negative Date of Service: 07/22/23Follow Up: 1 Year From Orig inal Mammogram Procedure(s): MM tomosynthesis screening BI Accession Number(s): [id number] cc: Autumn Chong MD EXAMINATION: MM SCREENING DIGITAL BREAST TOMOSYNTHESIS, BILATERAL CLINICAL INFORMATION: Screening. Asymptomatic. COMPARISON: Mammography: This study is compared with prior exams dating back to 2019. TECHNIQUE: Digital breast tomosynthesis is performed in both the craniocaudal and mediolateral oblique views along with computer-aided detection (CAD). Synthesized 2D images are generated from the tomosynthesis. FINDINGS: The breasts are almost entirely fatty (ACR BI-RADS breast composition Category a). There are no significant masses, abnormal calcifications, or other abnormalities. MM/MM tomosynthesis screening BI IMPRESSION: No mammographic evidence of malignancy. ASSESSMENT: BI-RADS BI-RADS 1 - Negative RECOMMENDATION: Routine annual mammography screening. 1 year F/U This examination should not preclude the clinical evaluation of a suspicious palpable abnormality. This patient's information was entered into a reminder system with a target due date for their next mammogram. Dictated By: Daiana Riley MD Signed By: <Electronically signed by Daiana Riley MD in OV> 08/16/23 1411 DD/ 0850 TD/TT: Qa Automation Engineer: Autumn Chong MD IMG BI PROCEDURES Final Result * (ABNORMAL) Lipid Panel with Reflex to Direct LDL (03/30/2023 11:09 AM EST) Triglycerides 105 <150 mg/dL [facility] Comment:Desirable Triglyceri de: less than 150 mg/dLBorderline High Triglyceride 150-199 mg/dLHigh Triglyceride: 200-499 mg/dLVery High Triglyceride: greater than or equal to 5OO mg/dL Cholesterol 183 <200 mg/dL [facility] Comment:Desirable Cholestero l: less than 200 mg/dLBorderline High Cholesterol: 200-239 mg/dLHigh Cholesterol: greater than 239 mg/dL LDL Cholesterol Calculated 113(H) <100 mg/dL [facility] Comment:Desirable LDL: less than 100 mg/dLNear Optimal/Above Optimal LDL: 110- 129 mg/dLBorderline High LDL: 130-159 mg/dLHigh LDL: 160-189 mg/dLVery High LDL: greater than or equal to 190 mg/dL HDL Cholesterol 49 >40 mg/dL [facility] Comment:Desirable HDL: great er than 40 mg/dL Note: This HDL assay may give artificially low results in patients with liver disease. Blood 03/30/2023 11:0 9 AM EST 03/30/2023 12:59 PM EST Autumn Chong MD LAB BLOOD ORDERABLES Final Resul t [facility] [address] [place] [address] [phone] * (ABNORMAL) Colonoscopy (09/02/2021) Colonoscopy Abnormal( A) Normal Comment:3 polyps, tubular ad enoma. Repeat in [address] Tristan. 09/02/2021 Historical Provider HEALTH MAINTENANCE Edited Result - Final from Last 3 Months or Most Recently Relevant to Health Maintenance Insurance [facility] STANDARD [facility] [facility] [employer] - [facility] Care Teams Records Management Technician Relationship Specialty Start Date End Date Autumn Chong MD [address] [place] [address] PCP - General Family Medicine 09/25/21 Leroy Shabazz, KaroD [address] [place] [phone] Pharmacist Internal Medicine 10/12/22
--- OUTSIDE RECORDS SUMMARY | 2024-05-11 12:32 | XMS_ITS | Encounter Summary ---
Author Organization [employer] Address [address] [place] [address] Care Team Providers Care Cop Name Role Phone Autumn Chong MD Primary Care Provider [phone] Leroy Shabazz PharmD Unavailable [phone] Encounter Details Date Type Department Care Team (Latest Contact Info) Description 04/17/2024 Travel Social History Tobacco Use Types Packs/Day [...] documented as of this encounter Care Teams Cop Relationship Specialty Start Date End Date Autumn Chong MD [address] [place] [address] PCP - General Family Medicine 09/25/21 Leroy Shabazz, KaroD [address] [place] [address] Pharmacist Internal Medicine 10/12/22 documented as of this encounter
[2024-05-11 13:35] LABS: Alanine Aminotransferase 35 U/L (0-31); Alkaline Phosphatase 70 U/L (39-117); Anion Gap 9 (12-20); Aspartate Amino Transferase 27 U/L (5-31); Bilirubin Total 0.3 mg/dL (0.0-1.0); Blood Urea Nitrogen 12 mg/dL (9-16); Calcium 8.9 mg/dL (8.4-10.2); Carbon Dioxide 26 mmol/L (22-29); Chloride 110 mmol/L (96-108); Cholesterol 123 mg/dL (<200); Estimated Glomerular Filt Rate > 60; Glucose Random 117 mg/dL (60-115); HDL Cholesterol 44 mg/dL (>40); LDL Cholesterol Calculated 59 mg/dL (<100); Potassium 4.2 mmol/L (3.3-5.1); Sodium 141 mmol/L (135-145); Total Protein 7.2 g/dL (6.5-8.0); Triglycerides 101 mg/dL (<150)
[2024-05-11 13:38] LABS: Reflex LDLD? No
[2024-05-11 13:49] LABS: Vitamin D 25-OH Total 15.8 ng/mL (>30)
== END 2024-05-11 12:30 | disposition home or self-care (01) ==
LOC: HO.HHCL 12:29
PROVIDERS: Visit Provider Family Medicine
DX: E78.5 Hyperlipidemia, unspecified (principal); M85.89 Other specified disorders of bone density and structure, multiple sites; I10 Essential (primary) hypertension
CPT/HCPCS: 36415; 80053; 80061; 82306

== ENCOUNTER 2024-08-10 12:26 | Outpatient (REF) | payer OTHER, SELFPAY ==
--- NOTE | ~2024-08-10 | XR_ITS ---
EXAMINATION: XR SHOULDER, RIGHT CLINICAL INFORMATION: right shoulder pain, posterior COMPARISON: September 25, 2021. TECHNIQUE: AP external rotation, Grashey, scapular Y, and axillary views of the right shoulder. FINDINGS: No acute cortical disruption or malalignment. Mild degenerative changes in the acromioclavicular joint. XR/XR shoulder RT min 2V IMPRESSION: Mild degenerative changes acromioclavicular joint. Electronically signed by: Juancarlos Zamorano MD 08/10/2024 01:12 PM EDT
--- OUTSIDE RECORDS SUMMARY | 2024-08-10 13:41 | XMS_ITS | Patient Health Record ---
Author Organization [facility] Address [address] [place] [address] Care Team Providers Care Herpetology Teacher Name Role Phone Carmina Messina Primary Care Provider Unavailab le Allergies Allergen (clinical drug ingredient) Drug/Non Drug Allergy documented on EMR Reaction Allergy Type Onset Date Status zolpidem Ambien Unknown Drug Allergy Active lisinopril Lisinopril Unknown Drug Allergy Activ e Reason For Referral No Information Medications Medication SIG (Take, Route, Frequency, Duration) Notes Start Date End Date Status Artificial Tears Act jill Ketoconazole 2 % 1 application to each toenail Externally Once a day for 90 days 07/24/2021 Active hydrOXYzine HCl 25 MG 1 tablet as needed Orally every 8 hrs PRN itching/nausea for 10 days 02/05/2021 Not-Taking Advair Diskus Active Acetaminophen 500 MG 1 tablet as needed Orally every 6 hrs for 30 days prn 02/05/2021 Active Tylenol Not-Taking Lidocaine-Prilocaine 2.5-2.5 % apply 0.5gm to the right foot Externally BID PRN PAIN for 30 days Active Naftifine HCl 1 % 1 application to the right toenail Externally Once a day for 28 day(s) 10/21/2020 Not-Taking Omeprazole 40 MG 1 capsule 30 minutes before morning meal Orally Once a day Active Pravastatin Sodium 20 MG 1 tablet Orally Once a day Not-Taking ProAir HFA Active Triamcinolone Acetonide 0.5 % 1 application Externally Two times a Week Not-Taking hydroCHLOROthiazide 12.5 MG 1 tablet in the morning Orally Once a day Active Flexeril Not-Taking Naprosyn 500 mg bid prn Active Losartan Potassium 50 MG 1 tablet Orally Once a day Not-Taking Nasal Mobeetie Active Ibuprofen 600 MG 1 tablet with food or milk as needed Orally Three times a day for 30 days prn 02/05/2021 Not-Taking Flovent HFA 110 MCG/ACT 1 puff Inhalatio n Twice a day Active Alejandra-D 24 Hour No t-Taking oxyCODONE HCl 5 MG 1 tablet as needed Orally every 4 hours for 5 days 02/05/2021 Not-Taking Diclofenac Sodium 1 % 1 gm to the right big toe Externally Twice a day for 30 days Active Urea 20 % 1 application as needed to the nails Externally Once a day for 30 days Not-Taking Problems Problem Type SNOMED Code ICD Code Onset Dates Problem Status W/U Status Risk Notes Problem 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 Plan Of Treatment Pending Test Test Name Order Date X ray : Foot, right 3v 05/03/2020 X ray : Foot, right 3v 06/07/2020 X ray : Foot, right 3v 03/25/2021 X ray : Foot, right 3v 05/22/2021 INJ TENDON SHEATH/LIGAMENT/FASCIA 2020 DRAIN/INJECT, INTERMEDIATE JOINT/BURSA 0 07/30/2020 Insurance Providers Payer Name Payer Address Payer Phone Subscriber Number Group Number Insured Name Patient Relationship to Insured Coverage Start Date Coverage End Date [employer] medicare community plan [address] [address] [place] [phone] [id number] Jenny Larkin Self - patient is the insured Medications Administered Medication Instructions Date of Administration Dosage Notes Dexamethasone 07/30/2020 0.5 mL Dexamethasone 03/05/2021 0.5 mL Kenalog 07/30/2020 0.5 mL Kenalog 03/05/2021 0.5 mL Medical (General) History Medical History History ICD Code asthma GERD H pylori positive S/P partial rx for H P ylori with biaxin and amoxicillin adenoma ( colonoscopy 2015 ) arthritis/rheumatism fibromyalgia depression obesity/morbid obesity carpal tunnel syndrome Surgical History Surgery Date(Month/Year) hysterectomy colonoscopy 1969 1971 Hospitalization History Reason Date(Month/Year) hysterectomy (girl) 1971 (girl) 1969
--- OUTSIDE RECORDS SUMMARY | 2024-08-10 13:41 | XMS_ITS | Clinical Summary ---
Author Organization [employer] Address [address] [place] [address] Care Team Providers Care Technician Biological Health Name Role Phone Autumn Chong MD Primary Care Provider [phone] Leroy Shabazz PharmD Unavailable [phone] Allergies Active Allergy Reactions Criticality Noted Date [...] pain (heel) Strength: 3 % 60 g 022 Active SALINE MIST 0.65 % nasal sprayIndications: Nasal congestion USE 1-2 SPRAY IN EACH NOSTRIL EVERY 2-3 HOURS NEEDED FOR NASAL CONGESTION 44 mL 1 023 Active ascorbic acid (Vitamin C) 1000 MG tablet Take 1 tablet by mouth once daily 90 tablet 3 023 Active cyclobenzaprine (Flexeril) 10 MG tablet TAKE 1 TABLET (10 MG) BY MOUTH AT BEDTIME NEEDED FOR MUSCLE SPASM 90 tablet 1 024 Active Blood Pressure Monitor kitIndications:Es sential hypertension Use to check blood pressure daily as directed 1 kit 024 Active Jublia 10 % solutionIndicatio ns:Onychomycosis APPLY TO AFFECTED TOENAILS EVERY DAY FOR 48 WEEKS Strength: 10 % 4 mL 2 024 Active amLODIPine-atorva statin (Caduet) 5-10 MG tabletIndications :Essential hypertension,Dysl ipidemia Take 1 tablet by mouth in the morning. 90 tablet 3 024 Active olmesartan (BENIcar) 40 MG tabletIndications :Essential hypertension Take 1 tablet (40 mg) by mouth in the morning. 90 tablet 3 024 Active omeprazole (PriLOSEC) [address] capsuleIndication s:Gastro-esophage al reflux disease without esophagitis TAKE 1 TABLET (20 MG) BY MOUTH BEFORE BREAKFAST DO NOT CRUSH, CHEW, OR SPLIT 90 capsule 3 024 Active cetirizine (ZyrTEC) 10 MG tablet TAKE 1 TABLET BY MOUTH EVERY DAY 90 tablet 3 024 Active fluticasone (Flonase) 50 MCG/ACT nasal sprayIndications: Allergic rhinitis, unspecified seasonality, unspecified trigger SPRAY 1 SPRAY INTO EACH NOSTRIL EVERY DAY 48 mL 1 024 Active famotidine (Pepcid) 40 MG tablet TAKE 1 TABLET BY MOUTH EVERYDAY AT BEDTIME 90 tablet 3 024 Active montelukast (Singulair) 10 MG tabletIndications :Allergic rhinitis, unspecified seasonality, unspecified trigger TAKE 1 TABLET BY MOUTH EVERY DAY IN THE MORNING 90 tablet 3 024 Active memantine (Namenda) 5 MG tablet Take 5 mg by mouth 2 times daily. 024 Active Ketotifen Fumarate 0.035 % solution Administer 1 drop into affected eye(s) in the morning and 1 drop at noon. 5 mL 025 Active cholecalciferol (Vitamin D-3) 25 MCG (1000 UT) tablet Take 1 tablet (25 mcg) by mouth Once per day. 90 tablet 3 025 Active alendronate (Fosamax) 70 MG tabletIndications :Osteopenia of multiple sites TAKE 1 TABLET BY MOUTH EVERY WEEK IN THE MORNING AT LEAST 30 MIN BEFORE 1ST FOOD DRINK OR MED OF DAY 12 tablet 3 Active meloxicam (Mobic) 15 MG tablet Take 1 tablet (15 mg) by mouth Once per day. 15 tablet 025 2025 Active acetaminophen (Tylenol 8 Hour) 650 MG ER tablet Take 1 tablet (650 mg) by mouth every 8 (eight) hours if needed for mild pain for up to 15 days. Do not crush, chew, or split. 45 tablet 025 2024 Active albuterol 108 (90 Base) MCG/ACT inhalerIndication s:Mild intermittent asthma without complication Inhale 2 puffs every 4 (four) hours if needed for wheezing or shortness of breath. 8.5 g 1 Active Fluticasone-Salme terol (Advair Diskus) 250-50 MCG/ACT aerosol powder Inhale 1 puff 2 times daily. 1 each Active ibuprofen 800 MG tablet Take 800 mg by mouth every 8 (eight) hours. 023 2024 Discontinued cromolyn (Opticrom) 4 % ophthalmic solution PLEASE SEE ATTACHED FOR DETAILED DIRECTIONS 023 2024 Discontinued(R eorder (will not trigger notification to Pharmacy)) albuterol 108 (90 Base) MCG/ACT inhalerIndication s:Mild intermittent asthma without complication INHALE 2 PUFFS EVERY 6 HOURS IF NEEDED FOR WHEEZING. 8.5 g 1 024 2024 Discontinued(R eorder (will not trigger notification to Pharmacy)) fluticasone furoate (Arnuity Ellipta) 100 MCG/ACT inhaler Inhale 1 puff Once per day. Rinse mouth with water after use to reduce aftertaste and incidence of candidiasis. Do not swallow. 1 each 025 2024 Discontinued acetaminophen (Tylenol 8 Hour) 650 MG ER tablet TAKE 1 TABLET BY MOUTH EVERY 8 HOURS IF NEEDED FOR MILD PAIN. DO NOT CRUSH, CHEW, OR SPLIT. 90 tablet 1 025 2024 Discontinued(R eorder (will not trigger notification to Pharmacy)) cromolyn (Opticrom) 4 % ophthalmic solutionIndicatio ns:Allergic conjunctivitis of both eyes Administer 1 drop into both eyes if needed in the morning, at noon, in the evening, and at bedtime (itchy eyes) for up to 7 days. 10 mL 1 025 2024 Diclofenac Sodium 1 % gelIndications:Ar thritis of both hands Apply 1 Application topically if needed in the morning, at noon, in the evening, and at bedtime (pain) for up to 7 days. 100 g 1 025 2024 Hospital, Clinic, or Other Facility Administered Medication Ordered Dose Route Frequency Start Date End Date Status ketorolac (Toradol) injection 30 mgIndications:Tendinosis of right rotator cuff 30 mg IM Once 08/08/2024 08/08/2024 Ended Active Problems Problem Noted Date Diagnosed Date Vitamin D deficiency 08/10/2024 Tendinosis of right rotator cuff 08/08/2024 Assessment & Plan (08/08/2024 5:50 PM EDT): Toradol injection today, she will continue meloxicam daily x 1 week Can take Tylenol twice daily as needed breakthrough pain Advised to apply heat to affected area, I gave her information regarding stretching exercises for her shoulder and can take Tylenol or diclofenac gel after exercises She will follow-up with PCP, if symptoms do not improve, she may need to be referred to PT Acquired hallux varus 01/29/2024 Vertigo 11/17/2023 Overview [...] as needed Dyslipidemia 07/06/2023 Assessment & Plan (05/13/2024 7:41 AM EST): - current medication: atorvastatin 10 mg at bedtime (as Caduet, a combination with amlodipine); consider changing to atorvastatin 20 mg qhs - last lipid profile 03/30/23 - continue working on lifestyle modifications - recheck lipid profile and hepatic profile Assessment & Plan (01/27/2024 12:42 PM EDT): [...] Plan (10/14/2023 11:00 AM EDT): -previously seeing airport ramp agent, recommended to follow-up Overweight 09/20/2022 Allergic rhinitis [...] Mild cognitive impairment 09/09/2022 Assessment & Plan (05/13/2024 7:43 AM EST): -Seen by neurologist on 09/01/23, for 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 I explained that this is meant to use only as a rescue inhaler. She agreed to start Arnuity inhaler 100 mg daily and follow-up with PCP. Advised her to rinse her mouth with water after each application. Advised to use albuterol as needed shortness of breath or cough only. Assessment & Plan (05/13/2024 7:40 AM EST): -PFT on 06/25/22, Mild-Asthma -Previously on mometasone but patient has not been using it, will discontinue at this time -Continue albuterol prn Assessment & Plan (01/27/2024 12:40 PM EDT): [...] syndrome Essential hypertension 10/27/2021 Assessment & Plan (05/25/2024 12:02 PM EST): Overall seems to be borderline controlled, he has been high only for the past 2 days. It is unclear if it is related to uncontrolled asthma and daily albuterol use. Pharmacal education provided regarding inhalers as below. Continue amlodipine and olmesartan same dose and follow-up with PCP Counseled re low salt diet/increase moderate physical activity. Check home BP BIW and prn CP/[place]/ORTIZ Non smoking patient. Follow-up BP with RN in 2 weeks as scheduled. Assessment & Plan (05/13/2024 7:45 AM EST): -Goal BP < 150/90 per JNC-8, < 130/80 per ACC/AHA guideline -BP is labile, home BP is sometimes high. Questionable medication adherence. -Continue checking BP at home -Continue Olmesartan 40 mg daily, questionable medication adherence -Continue Amlodipine 5 mg (combo with atorvastatin 10 mg as Caduet) daily. Consider changing it to olmesartan-amlodipine combo or olmesartan-hctz combo drug since she does not want any more increase in numbers of pill -Continue working on lifestyle modifications -Treatment Hx: Lisinopril was discontinued due to cough; Losartan was discontinued due to frequent urination ; amlodipine was temporarily held because patient perceived that it caused hot flashes, and Hydrochlorothiazide was discontinued -BP check with our nurse in 1 mo. If it remains high despite adherence, then will consider olmesartan-hctz combo drug. Assessment & Plan (01/29/2024 6:19 AM EDT): [...] ensure well controlled before surgery ?? Call [facility] office with any questions or concerns Assessment [...] showed subdural hematoma. She was sent to [facility] ED from the radiology department for further evaluation. She was then transferred to [facility] ED for neurosurgery consult. In [facility] ED, she had another CT scan which showed left frontoparietal hematoma 1.3 cm. No subarachnoid hemorrhage. Neurosurgery team came to see the patient in ED, and was advised to take tranexamic acid for 21 days and given an outpatient follow-up appt. -Seen by [facility] neurosurgeon on 01/22/22 after having a repeat MRI, which showed decreased subdural hematoma. She was given reassurance. -Referred to neurologist due to forgetfulness after the injury Encounters Date Type Department Care Team Description 08/10/2024 11:30 AM EDT Office Visit [facility] MEDICINE [address] [place] [phone] Autumn Chong MD Essential hypertension (Primary Dx); Mild cognitive impairment; Vitamin D deficiency; Overweight; Dyslipidemia; Chronic right shoulder pain; Mild intermittent asthma without complication 08/10/2024 Travel 08/09/[address] [address] Autumn Chong MD Chart Prep 08/08/2024 5:20 PM EDT Office Visit [facility] WALK-IN [address] [address] Leonela Dos Santos MD Tendinosis of right rotator cuff (Primary Dx) 08/08/2024 Travel 07/13/2024 8:40 AM EDT [facility] [address] [address] Marito Wing MD Injury of head, initial encounter (Primary Dx); Allergic conjunctivitis of both eyes; Arthritis of both hands 07/11/[address] [address] Autumn Chong MD Nurse Triage 06/16/[address] [phone] Autumn Chong MD 06/07/[address] [address] Autumn Chong MD Osteopenia of multiple sites 05/25/2024 9:00 AM EST Office Visit [facility] [address] [address] Leonela Dos Santos MD Essential hypertension (Primary Dx); Mild persistent asthma without complication from Last 3 Months Immunizations Name Administration Dates Next Due Influenza High-dose Quadriva lent Preservative Free 01/05/2022 Influenza injectable quadriv alent preservative free 12/31/2022 Influenza, High Dose Seasona l, Preservative Free 01/27/2024,03/22/2019,03/13/2016 Mukund SARS-CoV-2 Vaccination 07/11/2020 Moderna Covid-19 Vaccine 12+ 06/04/2021,10/25/19 21 Pfizer Covid-19 Vaccine 12+ 01/27/2024,,02/17/2021 Pfizer Covid-19 Vaccine 12+ Bivalent 03/12/2022 Pneumococcal [...] Date Recorded Patient Health Questionnaire-9 Score 0 08/10/2024 Patient Health Questionnaire-9 Score 0 08/10/2024 Last PHQ-9: Questionnaire Data Not on file 0 08/10/2024 Housing Stability Answer Date Recorded What is your housing situation today? I have nicolas linda 08/10/[address] you li ve. Do you have problems with any of the following? None of the above 08/10/2024 Food Insecurity Answer Date Recorded Within the past 12 months, y ou worried that your food would run out before you got money to buy more: Never True 08/10/2024 Within the past 12 months,th e food you bought just didn't last and you didn't have enough money to get more: Never True 11/2024 Transportation Answer Date Recorded In the past 12 months, has l ack of transportation kept you from medical appts, meetings, work or from getting things needed for daily living? No 08/10/2024 Utilities Answer Date Recorded In the past 12 months, has t he electric, gas, oil or water [employer] threatened to shut off services in your home? No 08/10/2024 Depression Answer Date Recorded Patient Health Questionnaire-2 Score 0 08/10/2024 Internet Access Answer Date Recorded Internet Access Q1 Yes 08/10/2024 Internet Access Q2 Not on file 08/10/2024 Comments Unknown Sex and Gender Information Value Date Recorded Sex Assigned at Female 02/02/2022 10:23 AM EDT Legal Sex Female 10:23 AM EDT Gender Identity Female 02/02/2022 10:23 AM EDT Sexual Orientation Straight 02/02/2022 10 :23 AM EDT Last Filed Vital Signs Vital Sign Reading Time Taken Comments Blood Pressure 139/67 08/10/2024 11:49 AM EDT Pulse 62 08/10/2024 11:49 AM EDT Temperature 36.3 ??C (97.4 ??F) 08/10/2024 11:49 AM E DT Respiratory Rate 16 08/10/2024 11:49 AM EDT Oxygen Saturation 97% 08/10/2024 11:49 AM EDT Inhaled Oxygen Concentration - - Weight 68.9 kg (152 lb) 08/10/2024 11:49 AM EDT Height 160 cm (5' 3 ) 08/10/2024 11:49 AM EDT Body Mass Index 26.93 08/10/2024 11:49 AM EDT Plan of Treatment Health Maintenance [...] 08/21/2021, 0 07/15/2017, 01/07/2017, Additional history exists Dental X-Ray: Full Mouth 08/22/2024 08/21/2021, 09/04 Colonoscopy 09/02/2024 09/02/2021 Colorectal Cancer Screening 09/02/2024 Mammogram 07/21/2025 07/22/2023, 05/2022, 09/30/2021 Alcohol/Substance Use Screening 08/10/2025 08/10/2024 Depression Screening 08/10/2025 08/10/2024, 08/11/19 25 SDOH Screening 08/10/2025 08/10/2024 Tobacco Screening 08/10/2025 08/10/2024 Lipid Panel 05/11/2029 05/11/2024, 03/06, 06/03/2022, Additional history exists DTaP/Tdap/Td Vaccines (4 - Td or Tdap) [...] Author Blood Pressure < 150/90 Blood Pressure 139/67(2024 11:49 AM EDT) No Leroy Shabazz, PharmD Note: Per JNC-8, Age>60 years old, No history of CKD or DM Procedures Procedure Name Priority Date/Time Associated Diagnosis Comments XR SHOULDER 2+ VIEWS RIGHT Routine 08/10/2024 12:27 PM EDT Chronic right shoulder pain ECG 12-LEAD Routine 05/25/2024 11:59 AM EST Essential hypertension LIPID PANEL WITH REFLEX TO DIRECT LDL Routine 05/11/2024 12:32 PM EST Dyslipidemia BI MAMMOGRAM SCREENING TOMOSYNTHESIS BILATERAL Routine 07/22/2023 8:50 AM EDT HM COLONOSCOPY Routine 09/02/2021 PROPHYLAXIS - ADULT Routine 08/21/2021 1 2:00 AM EDT PANORAMIC RADIOGRAPHIC IMAGE Routine 08/21/2021 12:00 AM EDT PERIODIC ORAL EVALUATION - ESTABLISHED PATIENT Routine 08/21/2021 12:00 AM EDT BITEWING - SINGLE RADIOGRAPHIC IMAGE Routine 07/15/2017 12:00 AM EDT from Last 3 Months or Most Recently Relevant to Health Maintenance Results * XR Shoulder 2+ Views Right (08/10/2024 12:27 PM EDT) Anatomical Region Laterality Modality Upper Extremities, Shoulder Right Radi ographic Imaging 08/10/2024 12:2 7 PM EDT Narrative 08/10/2024 1:15 PM EDT ?[facility] ?[address] ?[place] [address] ?XRay Report ? Signed ? Patient: Tee Simental,Jenny V ?M ?? R#: [id number] ? : 1950 ?Acct:[id number] ? Age/Sex: 74 / F ?ADM Date: 05/08/25 ? Loc: HO.HHCX ? Attending Dr: Autumn Chong MD ? Ordering Physician: Autumn Chong MD ?? Date of Service: 08/10/24 ?? Procedure(s): XR shoulder RT min 2V ?? Accession Number(s): [id number] ? cc: Autumn Chong MD ? EXAMINATION: ?? XR SHOULDER, RIGHT ? CLINICAL INFORMATION: ?? right shoulder pain, posterior ? COMPARISON: ?? September 25, 2021. ? TECHNIQUE: ?? AP external rotation, Grashey, scapular Y, and axillary views of the ?? right shoulder. ? FINDINGS: ?? No acute cortical disruption or malalignment. Mild degenerative changes ?? in the acromioclavicular joint. ? XR/XR shoulder RT min 2V ?? IMPRESSION: ?? Mild degenerative changes acromioclavicular joint. ? Electronically signed by: ??Juancarlos Zamorano MD ??08/10/2024 01:12 PM ?? EDT RP ? Dictated By: ?Juancarlos Mckeon MD ? Signed By: ?<Electronically signed by Juancarlos Cohen MD in OV> ? 08/10/24 1312 ? DD/ 1227 ? TD/TT: 08/10/24 1257 ? Aircraft Systems Repairer: ? Procedure Note Elijahcathrynedaniyah, Image - 08/10/[address] [address] XRay Report Signed Patient: Jenny Littlejohn R#: [id number] : 1950Acct:[id number] Age/Sex: 74 / FADM Date: 08/10/24 Loc: HO.HHCX Attending Dr: Autumn Chong MD Ordering Physician: Autumn Chong MD Date of Service: 08/10/24 Procedure(s): XR shoulder RT min 2V Accession Number(s): [id number] cc: Autumn Chong MD EXAMINATION: XR SHOULDER, RIGHT CLINICAL INFORMATION: right shoulder pain, posterior COMPARISON: September 25, 2021. TECHNIQUE: AP external rotation, Grashey, scapular Y, and axillary views of the right shoulder. FINDINGS: No acute cortical disruption or malalignment. Mild degenerative changes in the acromioclavicular joint. XR/XR shoulder RT min 2V IMPRESSION: Mild degenerative changes acromioclavicular joint. Electronically signed by: Juancarlos Zamorano MD 08/10/2024 01:12 PM EDT RP Dictated By: Juancarlos Mckeon MD Signed By: <Electronically signed by Juancarlos Cohen MDin OV> 08/10/24 1312 DD/ 1227 TD/TT: 08/10/24 1257 Aircraft Systems Repairer: us Autumn Chong MD IMG XR PROCEDURES Edited Result - Final * ECG 12 lead (05/25/2024 11:59 AM EST) Narrative Leonela Dos Santos MD - 05/25/2024 11:59 AM EST NSR@ 58bpm, left axis deviation, Low voltage T waves on lateral leads/repolarization abn. No ischemic changes us Leonela Dos Santos MD ECG ORDERABLES Final Re sult * Lipid Panel with Reflex to Direct LDL (05/11/2024 12:32 PM EST) Triglycerides 101 <150 mg/dL [facility] Comment:Desirable Triglyceri de: less than 150 mg/dLBorderline High Triglyceride 150-199 mg/dLHigh Triglyceride: 200-499 mg/dLVery High Triglyceride: greater than or equal to 5OO mg/dL Cholesterol 123 <200 mg/dL [facility] Comment:Desirable Cholestero l: less than 200 mg/dLBorderline High Cholesterol: 200-239 mg/dLHigh Cholesterol: greater than 239 mg/dL LDL Cholesterol Calculated 59 <100 mg/dL [facility] Comment:Desirable LDL: less than 100 mg/dLNear Optimal/Above Optimal LDL: 110- 129 mg/dLBorderline High LDL: 130-159 mg/dLHigh LDL: 160-189 mg/dLVery High LDL: greater than or equal to 190 mg/dL HDL Cholesterol 44 >40 mg/dL [facility] Comment:Desirable HDL: great er than 40 mg/dL Note: This HDL assay may give artificially low results in patients with liver disease. Blood 05/11/2024 12:3 2 PM EST 05/11/2024 12:57 PM EST us Autumn Chong MD LAB BLOOD ORDERABLES Final Resul t [facility] [address] [place] [phone] * BI Mammogram Screening Tomosynthesis Bilateral (07/22/2023 8:50 AM EDT) Anatomical Region Laterality Modality Breast Bilateral Mammography 07/22/2023 8:50 AM EDT Narrative 08/16/2023 2:14 PM EDT ? [facility] ? [address] ?[place] [phone] ? Mammography Report ? Signed ? Patient: Jenny Littlejohn V ?M ?? R#: [id number] ? : 1950 ?Acct:[id number] ? Age/Sex: 73 / F ?ADM Date: 07/22/23 ? Loc: HO.MAMMO ? Attending Dr: Autumn Chong MD ? Ordering Physician: Autumn Chong MD ?Results: 1Negative ? Date of Service: 07/22/23 ?Follow Up: 1 Year From Orig ?? inal Mammogram ? Procedure(s): MM tomosynthesis screening BI ?? Accession Number(s): [id number] ? cc: Autumn Chong MD ? EXAMINATION: ?? MM SCREENING DIGITAL BREAST TOMOSYNTHESIS, BILATERAL ? CLINICAL INFORMATION: ? Screening. Asymptomatic. ? COMPARISON: ?? Mammography: This study is compared with prior exams dating back to ?? 2019. ? TECHNIQUE: ?? Digital breast tomosynthesis is [...] MD in OV> ? 08/16/23 1411 ? DD/ 0850 ? TD/TT: ? Aircraft Systems Repairer: ? Procedure Note Edwin, Odilia - 08/16/2023 [facility] [address] [place] [address] [place] [address] Mammography Report Signed Patient: Jenny Littlejohn R#: [id number] : 1950Acct:[id number] Age/Sex: 73 / FADM Date: 07/22/23 Loc: SHANA Attending Dr: Autumn Chong MD Ordering Physician: Autumn Chongesults: 1Negative Date of Service: 07/22/23Follow Up: 1 Year From Orig inal Mammogram Procedure(s): MM tomosynthesis screening BI Accession Number(s): [id number] cc: Autumn Chong MD EXAMINATION: MM SCREENING [...] in OV> 08/16/23 1411 DD/ 0850 TD/TT: Aircraft Systems Repairer: Autumn Chong MD IMG BI PROCEDURES Final Result * (ABNORMAL) Colonoscopy (09/02/2021) Colonoscopy Abnormal( A) Normal Comment:3 polyps, tubular ad enoma. Repeat in [address] Tristan. 09/02/2021 Historical Provider HEALTH MAINTENANCE Edited Result - Final from Last 3 Months or Most Recently Relevant to Health Maintenance Insurance [facility] - [facility] Care Teams Technician Biological Health Relationship Specialty Start Date End Date Autumn Chong MD [address] [place] [address] PCP - General Family Medicine 09/25/21 Leroy Shabazz, PharmD [address] [place] [address] Pharmacist Internal Medicine 10/12/22
--- OUTSIDE RECORDS SUMMARY | 2024-08-10 13:41 | XMS_ITS | Encounter Summary ---
Author Organization [id number] Address [address] [facility] 7t [place] [address] Care Team Providers Care Chute Greaser Name Role Phone Autumn Chong MD Primary Care Provider [phone] Leroy Shabazz PharmD Unavailable [phone] Reason for Visit * Reason Comments Med Change Request Encounter Details Date Type Department Care Team ([facility] Contact Info) Description 03/18/2023 Refill [facility] MED[facility] [address] [place], [place] [phone] Autumn Chong MD [address] [place], [place] [phone] Nasal congestion Social History Tobacco Use Types [...] 139/67(2024 11:49 AM EDT) No Leroy Shabazz, Marija Note: Per JNC-8, Age>60 years old, No history of CKD or DM documented as of this encounter Visit Diagnoses Diagnosis Nasal congestion Other diseases of nasal cavity and sinuses documented in this encounter Additional Health Concerns Assessment Noted Time PHQ-9 Depression Total Score: 0 06/04/19 23 11:23 AM EST documented as of this encounter Care Teams Chute Greaser Relationship Specialty Start Date End Date Autumn Chong MD [address] [place] [address] PCP - General Family Medicine 09/25/21 Leroy Shabazz, PharmD [address] [place] [address] Pharmacist Internal Medicine 10/12/22 documented as of this encounter
--- OUTSIDE RECORDS SUMMARY | 2024-08-10 13:41 | XMS_ITS | Encounter Summary ---
Author Organization [employer] Address [address] [facility] 7t [place] [address] Care Team Providers Care Manager Orange Name Role Phone Autumn Chong MD Primary Care Provider [phone] Leroy Shabazz PharmD Unavailable [phone] Reason for Visit * Reason Comments Med Refill Encounter Details Date Type Department Care Team ([facility] st Contact Info) Description 08/17/2022 Refill [facility] [address] [place], [place] [phone] Marito Wing MD [address] [place], [place] [phone] Gastroesophageal reflux disease, unspecified whether esophagitis present [...] documented as of this encounter Care Teams Manager Orange Relationship Specialty Start Date End Date Autumn Chong MD [address] [place] [address] PCP - General Family Medicine 09/25/21 Leroy Shabazz, KaroD [address] [place] [address] Pharmacist Internal Medicine 10/12/22 documented as of this encounter
--- OUTSIDE RECORDS SUMMARY | 2024-08-10 13:41 | XMS_ITS | Encounter Summary ---
Author Organization [employer] Address [address] [place] [address] Care Team Providers Care Gore Stitcher Name Role Phone Autumn Chong MD Primary Care Provider [phone] Leroy Shabazz PharmD Unavailable [phone] Encounter Details Date Type Department Care Team ([facility] st Contact Info) Description 05/11/2024 Orders Only [facility] MEDICINE [address] [place], [place] [phone] Autumn Chong MD [address] [place] [address] Social History Tobacco Use Types Packs/Day Years [...] documented as of this encounter Care Teams Gore Stitcher Relationship Specialty Start Date End Date Autumn Chong MD [address] [place] [address] PCP - General Family Medicine 09/25/21 Leroy Shabazz, Marija [address] [place] [address] Pharmacist Internal Medicine 10/12/22 documented as of this encounter
--- OUTSIDE RECORDS SUMMARY | 2024-08-10 13:41 | XMS_ITS | Clinical Summary ---
Author Organization [employer] [facility] Address [address] [place] [address] Care Team Providers Care Urban Planning Professor Name Role Phone Unavailable Primary Care Provider Unavailabl e Social History Tobacco Use Types Packs/Day Years Used Date Smoking Tobacco: Never Assessed Sex and Gender Information Value Date Recorded Sex Assigned at Not on file Gender Identity Not on file Sexual Orientation Not on file Job Start Date Occupation Industry Not on file Not on file Not on file Plan of Treatment Not on file
--- OUTSIDE RECORDS SUMMARY | 2024-08-10 13:41 | XMS_ITS | Encounter Summary ---
Author Organization [employer] Address [address] [place] [address] Care Team Providers Care Brass Cleaner Name Role Phone Autumn Chong MD Primary Care Provider [phone] Leroy Shabazz PharmD Unavailable [phone] Reason for Visit * Reason Onset Date Comments Nurse Triage 07/11/2024 Encounter Details Date Type Department Care Team ([facility] st Contact Info) Description 07/11/2024 Telephone [facility] MEDICINE [address] [place], [place] [phone] Autumn Chong MD [address] [place] [address] Nurse Triage Social History Tobacco Use Types Packs/Day Years [...] encounter Miscellaneous Notes * Telephone Encounter - Yaima Quach - 07/11/2024 9:21 AM EDT Symptom: Finger Pain - Not From Injury Outcome: Schedule an urgent appointment (within 4 hours) or talk to a nurse or provider soon Reason: Swelling The caller accepted this outcome. documented in this encounter Plan of Treatment [...] documented as of this encounter Care Teams Brass Cleaner Relationship Specialty Start Date End Date Autumn Chong MD [address] [place] [address] PCP - General Family Medicine 09/25/21 Leroy Shabazz PharmD [address] [place] [address] Pharmacist Internal Medicine 10/12/22 documented as of this encounter
--- OUTSIDE RECORDS SUMMARY | 2024-08-10 13:41 | XMS_ITS | Encounter Summary ---
Author Organization [employer] Address [address] [place] [address] Care Team Providers Care Handling Tech Name Role Phone Autumn Chong MD Primary Care Provider [phone] Leroy Shabazz PharmD Unavailable [phone] Encounter Details Date Type Department Care Team ([facility] st Contact Info) Description 04/04/2024 Orders Only [facility] [address] [place], [place] [phone] Les Aquino MD [address] [place] [address] Social History Tobacco Use Types Packs/Day Years [...] documented as of this encounter Care Teams Handling Tech Relationship Specialty Start Date End Date Autumn Chong MD [address] [place] [address] PCP - General Family Medicine 09/25/21 Leroy Shabazz, Marija [address] [place] [address] Pharmacist Internal Medicine 10/12/22 documented as of this encounter
--- OUTSIDE RECORDS SUMMARY | 2024-08-10 13:41 | XMS_ITS | Encounter Summary ---
Author Organization [employer] Address [address] [place] [address] Care Team Providers Care Electric Power Line Repairer Name Role Phone Autumn Chong MD Primary Care Provider [phone] Leroy Shabazz PharmD Unavailable [phone] Reason for Visit * Reason Onset Date Comments Chart Prep 08/09/2024 Encounter Details Date Type Department Care Team ([facility] Contact Info) Description 08/09/2024 Telephone [facility] MEDICINE [address] [place] [address] Autumn Chong MD [address] [place], [place] [phone] Chart Prep Social History Tobacco Use Types Packs/Day Years [...] encounter Miscellaneous Notes * Telephone Encounter - Cortney Vargas [place] - 08/09/2024 4:45 PM EDT Chart Prep Labs: done Images: not applicable Vaccines due: RSV in Pharmacy Due Referrals: Not Applicable Screenings: Not Applicable Overdue care gaps: SDOH, PQ9, and Disability documented in this encounter Plan of Treatment [...] documented as of this encounter Care Teams Electric Power Line Repairer Relationship Specialty Start Date End Date Autumn Chong MD [address] [place] [address] PCP - General Family Medicine 09/25/21 Leroy Shabazz, PharmD [address] [place] [address] Pharmacist Internal Medicine 10/12/22 documented as of this encounter
--- OUTSIDE RECORDS SUMMARY | 2024-08-10 13:41 | XMS_ITS | Encounter Summary ---
Author Organization [employer] Address [address] [place] [address] Care Team Providers Care Sectional Belt Mold Assembler Name Role Phone Autumn Chong MD Primary Care Provider [phone] Leroy Shabazz PharmD Unavailable [phone] Reason for Visit * Reason Comments Med Refill Encounter Details Date Type Department Care Team ([facility] Contact Info) Description 05/31/2023 Refill [facility] [address] [place], [place] [phone] Rajani Riggs FNP Essential hypertension Social History [...] documented as of this encounter Care Teams Sectional Belt Mold Assembler Relationship Specialty Start Date End Date Autumn Chong MD [address] [place] [address] PCP - General Family Medicine 09/25/21 Leroy Shabazz, PharmD [address] [place] [address] Pharmacist Internal Medicine 10/12/22 documented as of this encounter
--- OUTSIDE RECORDS SUMMARY | 2024-08-10 13:41 | XMS_ITS | Encounter Summary ---
Author Organization [employer] Address [address] [place] [address] Care Team Providers Care Barrel Bridge Assembler Name Role Phone Autumn Chong MD Primary Care Provider [phone] Leroy Shabazz PharmD Unavailable Encounter Details Date Type Department Care Team (Latest Contact Info) Description 08/08/2024 Travel Social History Tobacco Use Types Packs/Day [...] documented as of this encounter Care Teams Barrel Bridge Assembler Relationship Specialty Start Date End Date Autumn Chong MD [address] [place] [address] PCP - General Family Medicine 09/25/21 Leroy Shabazz, KaroD [address] [place] [address] Pharmacist Internal Medicine 10/12/22 documented as of this encounter
--- OUTSIDE RECORDS SUMMARY | 2024-08-10 13:41 | XMS_ITS | Encounter Summary ---
Author Organization [employer] Address [address] [place] [address] Care Team Providers Care Commodity Specialist Name Role Phone Autumn Chong MD Primary Care Provider [phone] Leroy Shabazz PharmD Unavailable [phone] Encounter Details Date Type Department Care Team (Latest Contact Info) Description 08/10/2024 Travel Social History Tobacco Use Types Packs/Day [...] Noted Time PHQ-9 Depression Total Score: 0 08/11/19 25 11:48 AM EDT documented as of this encounter Care Teams Commodity Specialist Relationship Specialty Start Date End Date Autumn Chong MD [address] [place] [address] PCP - General Family Medicine 09/25/21 Leroy Shabazz, PharmD [address] [place] [address] Pharmacist Internal Medicine 10/12/22 documented as of this encounter
--- OUTSIDE RECORDS SUMMARY | 2024-08-10 13:41 | XMS_ITS | Encounter Summary ---
Author Organization [facility] [employer] [facility] [employer] Address [address] [facility] [address] [facility] [address] [place] [address] Care Team Providers Care Police Clerk Name Role Phone Autumn Chong MD Primary Care Provider [phone] Leroy Shabazz PharmD Unavailable [phone] Encounter Details Date Type Department Care Team (Latest Contact Info) Description 08/21/2021 Abstract [facility] Dental, Provider, DDS Social History [...] on filedocumented in this encounter Care Teams Police Clerk Relationship Specialty Start Date End Date Autumn Chong MD [address] [place] [address] PCP - General Family Medicine 09/25/21 Leroy Shabazz, PharmD [address] [place], [place] [phone] Pharmacist Internal Medicine 10/12/22 documented as of this encounter
--- OUTSIDE RECORDS SUMMARY | 2024-08-10 13:41 | XMS_ITS | Encounter Summary ---
Author Organization [employer] Address [address] [place] [address] Care Team Providers Care Textile Supervisor Name Role Phone Autumn Chong MD Primary Care Provider [phone] Leroy Shabazz PharmD Unavailable [phone] Encounter Details Date Type Department Care Team ([facility] st Contact Info) Description 08/10/2024 11:30 AM EDT Office Visit [facility] MEDICINE [address] [place], [place] [phone] Autumn Chong MD [address] [place], [place] [phone] Essential hypertension (Primary Dx); Mild cognitive impairment; Vitamin D deficiency; Overweight; Dyslipidemia; Chronic right shoulder pain; Mild intermittent asthma without complication Social History Tobacco Use Types Packs/Day Years [...] Mass Index 26.93 08/10/2024 11:49 AM EDT documented in this encounter Plan of Treatment Not on file documented as of this encounter Goals Goal Patient Goal Type Associated Problems Recent Progress Patient-Stated? Author Blood Pressure < 150/90 Blood Pressure 139/67(2024 11:49 AM EDT) Leroy Ibarra, PharmD Note: Per JNC-8, Age>60 years old, No history of CKD or DM documented as of this encounter Procedures Procedure Name Priority Date/Time Associated Diagnosis Comments XR SHOULDER 2+ VIEWS RIGHT Routine 08/10/2024 12:27 PM EDT Chronic right shoulder pain documented in this encounter Results * XR Shoulder 2+ Views Right (08/10/2024 12:27 PM EDT) Anatomical Region Laterality Modality Upper Extremities, Shoulder Right Radi ographic Imaging 08/10/2024 12:2 7 PM EDT Narrative 08/10/2024 1:15 PM EDT ?[facility] ?[address] ?[place] [address] ?XRay Report ? Signed ? Patient: Jenny Littlejohn V ?M ?? R#: [id number] ? : 1950 ?Acct:[id number] ? Age/Sex: 74 / F ?ADM Date: 08/10/24 ? Loc: HO.HHCX ? Attending Dr: Autumn Chong MD ? Ordering Physician: Autumn Chong MD ?? Date of Service: 08/10/24 ?? Procedure(s): XR shoulder RT min 2V ?? Accession Number(s): [id number] ? cc: Autumn Chong MD ? EXAMINATION: [...] DD/ 1227 ? TD/TT: 08/10/24 1257 ? Embedded Firmware Engineer: ? Procedure Note Edwin, Odilia - 08/10/2024 [facility] [address] [place] [address] XRay Report Signed Patient: Jenny Littlejohn R#: [id number] : 1950Acct:[id number] Age/Sex: 74 / FADM Date: 08/10/24 Loc: HO.HHCX Attending Dr: Autumn Chong MD Ordering Physician: Autumn Chong MD Date of Service: 08/10/24 Procedure(s): XR shoulder RT min 2V Accession Number(s): [id number] cc: Autumn Chong MD EXAMINATION: XR SHOULDER, [...] 01:12 PM EDT RP Dictated By: Juancarlos Mkceon MD Signed By: <Electronically signed by Juancarlos Cohen MDin OV> 08/10/24 1312 DD/ 1227 TD/TT: 08/10/24 1257 Embedded Firmware Engineer: Autumn Chong MD IMG XR PROCEDURES Edited Result - Final documented in this encounter Visit Diagnoses Diagnosis Essential hypertension- Primary Unspecified essential hypertension Mild cognitive impairment Mild cognitive impairment, so stated Vitamin D deficiency Overweight Dyslipidemia Other and unspecified hyperlipidemia Chronic right shoulder pain Pain in joint, shoulder region Mild intermittent asthma without complication documented in this encounter Additional Health Concerns Assessment Noted Time PHQ-9 Depression Total Score: 0 08/11/19 25 11:48 AM EDT documented as of this encounter Care Teams Textile Supervisor Relationship Specialty Start Date End Date Autumn Chong MD [address] [place] [address] PCP - General Family Medicine 09/25/21 Leroy Shabazz, KaroD [address] [place] [address] Pharmacist Internal Medicine 10/12/22 documented as of this encounter
--- OUTSIDE RECORDS SUMMARY | 2024-08-10 13:42 | XMS_ITS | Encounter Summary ---
Author Organization [employer] Address [address] [place] [address] Care Team Providers Care Slitting And Shipping Supervisor Name Role Phone Autumn Chong MD Primary Care Provider [phone] Leroy Shabazz PharmD Unavailable [phone] Encounter Details Date Type Department Care Team ([facility] st Contact Info) Description 08/08/2024 5:20 PM EDT Office Visit [facility] [address] [place], [place] [phone] Leonela Dos Santos MD [address] [place] [address] Tendinosis of right rotator cuff (Primary Dx) Social History Tobacco Use Types Packs/Day Years [...] Sign Reading Time Taken Comments Blood Pressure 134/71 08/08/2024 5:10 PM EDT Pulse 60 08/08/2024 5:10 PM EDT Temperature 37.1 ??C (98.8 ??F) 08/08/2024 5:10 PM ED T Respiratory Rate 17 08/08/2024 5:10 PM EDT Oxygen Saturation 98% 08/08/2024 5:10 PM EDT Inhaled Oxygen Concentration - - Weight 69.5 kg (153 lb 4 oz) 08/08/2024 5:10 PM EDT Height 160 cm (5' 3 ) 08/08/2024 5:10 PM EDT Body Mass Index 27.15 08/08/2024 5:10 PM EDT documented in this encounter Progress Notes * Leonela Dos Santos MD - 08/08/2024 5:20 PM EDT SUBJECTIVE: Jenny Oliveira is a 74 y.o. year old female who presents for [facility] Center/arm pain . Denies recent illness, injury, or hospitalization. Acute Concerns: Patient complaining of right shoulder pain and limited movements x 2 days, apparently after she waspainting her house for the whole weekend. She has been taking Tylenol as needed with improvement ofsymptoms she has never had similar symptoms in the past, she has occasional neck pain with shoulderpain that resolved with Tylenol. She has noticed occasional right hand numbness, no headache, no neck pain or low back pain. Social History Social History Narrative Not on file Patient Active Problem List Diagnosis Essential hypertension Onychomycosis History of subdural hematoma Fibromyalgia Asthma Osteopenia of multiple sites Allergic rhinitis Gastroesophageal reflux disease Mild cognitive impairment Overweight Kidney stones Cervical radiculopathy Chronic toe pain, right foot Dyslipidemia Chronic pain of right knee Anxiety Vertigo Anemia Acquired hallux varus Tendinosis of right rotator cuff No family history on file. Review of Systems Constitutional: Negative for chills, fatigue and fever. HENT: Negative for congestion, ear pain, nosebleeds, rhinorrhea, sinus pressure, sore throat and trouble swallowing. Eyes: Negative for pain and discharge. Respiratory: Negative for cough, chest tightness and shortness of breath. Cardiovascular: Negative for chest pain, palpitations and leg swelling. Gastrointestinal: Negative for abdominal pain, blood in stool, constipation, diarrhea and nausea. Endocrine: Negative for polydipsia and polyuria. Genitourinary: Negative for dysuria, frequency, genital sores, pelvic pain and vaginal discharge. Musculoskeletal: Positive for arthralgias. Negative for back pain and neck pain. Skin: Negative for rash. Allergic/Immunologic: Negative for environmental allergies. Neurological: Positive for numbness. Negative for dizziness, seizures, weakness, light-headedness and headaches. Hematological: Negative for adenopathy. Psychiatric/Behavioral: Negative for agitation, behavioral problems, self-injury and suicidal ideas. OBJECTIVE: Vitals: 08/08/24 1710 BP: 134/71 Pulse: 60 Resp: 17 Temp: 98.8 ??F (37.1 ??C) SpO2: 98% Physical Exam HENT: Right Ear: Tympanic membrane and ear canal normal. Left Ear: Tympanic membrane and ear canal normal. Mouth/Throat: Mouth: Mucous membranes are moist. Pharynx: No oropharyngeal exudate or posterior oropharyngeal erythema. Eyes: Pupils: Pupils are equal, round, and reactive to light. Cardiovascular: Rate and Rhythm: Regular rhythm. Pulses: Normal pulses. Heart sounds: Normal heart sounds. No murmur heard. Pulmonary: Breath sounds: Normal breath sounds. Abdominal: General: Bowel sounds are normal. Palpations: Abdomen is soft. Tenderness: There is no abdominal tenderness. Musculoskeletal: Right shoulder: Tenderness and bony tenderness present. Decreased range of motion. Right elbow: Tenderness present in lateral epicondyle. Cervical back: Neck supple. Skin: General: Skin is warm. Neurological: General: No focal deficit present. Mental Status: She is alert and oriented to person, place, and time. Psychiatric: Mood and Affect: Mood normal. Behavior: Behavior normal. Problem List Items Addressed This Visit Tendinosis of right rotator cuff - Primary Toradol injection today, she will continue meloxicam [...] may need to be referred to PT Relevant Medications ketorolac (Toradol) injection 30 mg Follow Up: Current Outpatient Medications on File Prior to Visit Medication Sig Dispense Refill albuterol 108 (90 Base) MCG/ACT inhaler INHALE 2 PUFFS EVERY 6 HOURS IF NEEDED FOR WHEEZING. 8.5 g 1 alendronate (Fosamax) 70 MG tablet TAKE 1 TABLET BY MOUTH EVERY WEEK IN THE MORNING AT LEAST 30 MINBEFORE 1ST FOOD DRINK OR MED OF DAY 12 tablet 3 Apple Cider Vinegar 500 MG tablet Patient reports buying OTC ascorbic acid (Vitamin C) 1000 MG tablet Take 1 tablet by mouth once daily 90 tablet 3 Blood Pressure Monitor kit Use to check blood pressure daily as directed 1 kit 0 cetirizine (ZyrTEC) 10 MG tablet TAKE 1 TABLET BY MOUTH EVERY DAY 90 tablet 3 cholecalciferol (Vitamin D-3) 25 MCG (1000 UT) tablet Take 1 tablet (25 mcg) by mouth Once per day.90 tablet 3 cyclobenzaprine (Flexeril) 10 MG tablet TAKE 1 TABLET (10 MG) BY MOUTH AT BEDTIME NEEDED FOR MUSCLE SPASM 90 tablet 1 diclofenac sodium 3 % gel apply by topical route once or twice a day as needed for the area of pain(heel) Strength: 3 % 60 g 0 famotidine (Pepcid) 40 MG tablet TAKE 1 TABLET BY MOUTH EVERYDAY AT BEDTIME 90 tablet 3 fluticasone (Flonase) 50 MCG/ACT nasal spray SPRAY 1 SPRAY INTO EACH NOSTRIL EVERY DAY 48 mL 1 fluticasone furoate (Arnuity Ellipta) 100 MCG/ACT inhaler Inhale 1 puff Once per day. Rinse mouth with water after use to reduce aftertaste and incidence of candidiasis. Do not swallow. 1 each 11 Jublia 10 % solution APPLY TO AFFECTED TOENAILS EVERY DAY FOR 48 WEEKS Strength: 10 % 4 mL 2 Ketotifen Fumarate 0.035 % solution Administer 1 drop into affected eye(s) in the morning and 1 drop at noon. 5 mL 0 memantine (Namenda) 5 MG tablet Take 5 mg by mouth 2 times daily. montelukast (Singulair) 10 MG tablet TAKE 1 TABLET BY MOUTH EVERY DAY IN THE MORNING 90 tablet 3 olmesartan (BENIcar) 40 MG tablet Take 1 tablet (40 mg) by mouth in the morning. 90 tablet 3 omega-3 (Fish Oil) 1200 MG capsule Patient reports purchasing OTC omeprazole (PriLOSEC) [address] capsule TAKE 1 TABLET (20 MG) BY MOUTH BEFORE BREAKFAST DO NOT CRUSH, CHEW, OR SPLIT 90 capsule 3 SALINE MIST 0.65 % nasal spray USE 1-2 SPRAY IN EACH NOSTRIL EVERY 2-3 HOURS NEEDED FOR NASAL CONGESTION 44 mL 1 [DISCONTINUED] acetaminophen (Tylenol 8 Hour) 650 MG ER tablet TAKE 1 TABLET BY MOUTH EVERY 8 HOURSIF NEEDED FOR MILD PAIN. DO NOT CRUSH, CHEW, OR SPLIT. 90 tablet 1 amLODIPine-atorvastatin (Caduet) 5-10 MG tablet Take 1 tablet by mouth in the morning. 90 tablet 3 No current facility-administered medications on file prior to visit. documented in this encounter Miscellaneous Notes * Patient Education Note - Leonela Dos Santos MD - 08/08/2024 9:44 PM EDT Images from the original note were not included. Patient Education Table of Contents Ejercicios despu?s de la reparaci?n del manguito de rotador: fortalecimiento (Exercises After Rotator Cuff Repair: Strengthening) To view videos and all your education online visit, [email or web address] or scan this QR code with your smartphone. Access to this content will in one year. Ejercicios despu?s de la reparaci?n del manguito de rotador: fortalecimiento Exercises After Rotator Cuff Repair: Strengthening Introducci?n Los ejercicios para el hombro pueden ayudarlo a recuperarse despu?s de mami lesi?n. Terra solo los ejercicios que le hayan indicado. Aseg?rese de comprender c?mo hacer los ejercicios de manera hill. Siga los pasos que se describena continuaci?n. Es normal sentir molestias leves. Det?ngase si siente dolor o el dolor empeora. No comience estos ejercicios hasta que el m?dico se lo indique. Ejercicios para fortalecer Estos ejercicios fortalecen el brazo y el hombro, y les otorgan resistencia. La resistencia significa poder utilizar los m?sculos michael m?s tiempo, incluso despu?s de que se cansen. En los ejercicios ivanna?tricos, se empuja o lorena de un elemento que no se mueve. [place] permite que los m?sculos se fortalezcan sin esforzar mucho el cuerpo. Flexi?n del hombro, ejercicio ivanna?trico 1. P?rese o si?ntese en la entrada de mami eula, de frente al stewart de la eula. Mantenga el brazo rosanna/derecho extendido y forme un pu?o suave con la mano. Coloque el pu?o contra el stewart de la eula. Solo el pu?o debe tocar el stewart. Mantenga la parte superior del brazo al costado del cuerpo. Presione con suavidad el pu?o contra el stewart de la eula, karla si tratara de levantar el brazo por encima de la stacie. Evite encoger el hombro mientras presiona con la mano sobre el stewart de la eula. Mantenga los om?platos juntos, ll?velos hacia el centro de la espalda. Mantenga esta posici?n michael segundos. Afloje lentamente la tensi?n y relaje los m?sculos por completo antes de repetir el ejercicio. Repita veces. Terra massiel ejercicio ?veces por d?a. Abducci?n del hombro, ejercicio ivanna?trico En massiel ejercicio, debe ejercer presi?n sobre el hombro sin inside solar sales consultant la articulaci?n del hombro. 1. P?rese o si?ntese a mami distancia de entre 4 y 6?pulgadas (10 y 15?cm) de la pared, con el costado rosanna/derecho frente a la pared. Flexione el codo rosanna o derecho, y presi?burton con suavidad contra la pared, karla si tratara dealejar el brazo del cuerpo (abducci?n). Aumente de a poco la presi?n tanto karla pueda sin llegar a encoger el hombro y sin sentir?dolor. Mantenga esta posici?n michael segundos. Afloje lentamente la tensi?n y relaje los m?sculos por completo antes de repetir el ejercicio. Repita veces. Terra massiel ejercicio ?veces por d?a. Rotaci?n interna, ejercicio ivanna?trico En massiel ejercicio, presionar?s la berry de la mano contra el stewart de mami eula sin inside solar sales consultant la articulaci?n del?hombro. 1. P?rese o si?ntese en la entrada de mami eula, de frente al stewart de la eula. Flexione el codo rosanna/derecho y coloque la berry de la mano contra el stewart de la eula. Solola berry debe tocar el stewart. Mantenga la parte superior del brazo al costado del cuerpo. Presione con suavidad la mano contra el stewart de la eula, karla si tratara de empujar el brazo hacia el vientre. Aumente de a poco la presi?n hasta presionar tanto karla?pueda. Deje de aumentar la presi?n si siente dolor en el hombro. Evite encoger el hombro mientras presiona con la mano sobre el stewart de la eula. Mantenga los om?platos juntos, ll?velos hacia el centro de la espalda. Mantenga esta posici?n michael segundos. Afloje lentamente la tensi?n y relaje los m?sculos por completo antes de repetir el ejercicio. Repita veces. Terra massiel ejercicio ?veces por d?a. Rotaci?n externa, ejercicio ivanna?trico En massiel ejercicio, presionar?? el dorso de la mu?eca contra el stewart de mami eula sin inside solar sales consultant la articulaci?n?del hombro. 1. P?rese o si?ntese en la entrada de mami eula, de frente al stewart de la eula. Flexione el codo rosanna/derecho y coloque la parte de atr?s de la mu?eca contra el stewart de la eula. Solo la parte de atr?s de la mu?eca debe tocar el stewart. Mantenga la parte superior del brazoal costado del cuerpo. Presione suavemente la mu?eca contra el stewart de la eula, karla si tratara de empujar el brazo en direcci?n contraria al vientre. Aumente de a poco la presi?n hasta presionar tanto karla?pueda. Deje de aumentar la presi?n si siente dolor. Evite encoger el hombro mientras presiona con la mu?eca sobre el stewart de la eula. Mantenga los om?platos juntos, ll?velos hacia el centro de la espalda. Mantenga esta posici?n michael segundos. Afloje lentamente la tensi?n y relaje los m?sculos por completo antes de repetir el ejercicio. Repita veces. Terra massiel ejercicio ?veces por d?a. Esta informaci?n no tiene karla fin reemplazar el consejo del m?dico. Aseg?rese de hacerle al m?dicocualquier pregunta que tenga. Document Released: 2024-04-06 Document Updated: 2024-04-06 Document Reviewed: 2024-04-06 Elsevier Patient Education ? 2024 [employer] * Assessment & Plan Note - Leonela Dos aSntos MD - 08/08/2024 5:50 PM EDT Associated Problem(s): Tendinosis of right rotator cuff Toradol injection today, she will continue meloxicam [...] may need to be referred to PT documented in this encounter Plan of Treatment Not on file documented as of this encounter Goals Goal Patient Goal Type Associated Problems Recent Progress Patient-Stated? Author Blood Pressure < 150/90 Blood Pressure 139/67(2024 11:49 AM EDT) Leroy Ibarra, Marija Note: Per JNC-8, Age>60 years old, No history of CKD or DM documented as of this encounter Visit Diagnoses Diagnosis Tendinosis of right rotator cuff- Primary documented in this encounter Administered Medications Inactive Administered Medications - up to 3 most recent administrations Medication Order MAR Action Action Date Dose Rate Site ketorolac (Toradol) injection 30 mg 30 mg, Intramuscular, Once, On Wed08/08/24 at 1745, For 1 doseIndications:Tendinosis of right rotator cuff Given 08/08/2024 5:45 PM EDT 30 mg Left Deltoid documented in this encounter Additional Health Concerns Assessment Noted Time PHQ-9 Depression Total Score: 0 07/06/19 24 11:10 AM EDT documented as of this encounter Care Teams Slitting And Shipping Supervisor Relationship Specialty Start Date End Date Autumn Chong MD [address] [place] [address] PCP - General Family Medicine 09/25/21 Leroy Shabazz, PharmD [address] [place] [address] Pharmacist Internal Medicine 10/12/22 documented as of this encounter
== END 2024-08-10 12:27 | disposition home or self-care (01) ==
LOC: HO.HHCX 12:26
PROVIDERS: Visit Provider Family Medicine
DX: M25.561 Pain in right knee (principal); G89.29 Other chronic pain
CPT/HCPCS: 73030

== ENCOUNTER → 2024-08-10 12:27 | Outpatient (BNV) | payer OTHER, SELFPAY | PROVIDERS: Visit Provider Radiology Diagnostic Radiology | DX: M25.511 Pain in right shoulder (principal) | CPT/HCPCS: 73030 ==

== ENCOUNTER 2024-08-18 22:51 | Emergency (ER) | payer OTHER, SELFPAY ==
[2024-08-18 22:52] VITALS: BP 148/70; PULSE 81; RESP 18; TEMP 36.8; O2SAT 99; BMI 26.9
--- NOTE | 2024-08-18 22:57 | PC.NURSE ---
Upon finishing triage assessment pt states she doesn't want to wait at all and she is leaving.
== END 2024-08-18 23:06 | disposition left against medical advice (07) ==
PROVIDERS: Emergency Provider Emergency Medicine
DX: M25.551 Pain in right hip (principal); Z53.21 Procedure and treatment not carried out due to patient leaving prior to being seen by health care provider
CPT/HCPCS: 99281

== ENCOUNTER 2024-09-18 08:06 | Outpatient (REF) | payer OTHER, SELFPAY ==
--- OUTSIDE RECORDS SUMMARY | 2024-09-18 08:13 | XMS_ITS | Encounter Summary ---
Author Organization [employer] Address [address] [facility] [address] [place] [address] Care Team Providers Care Curator Herbarium Name Role Phone Autumn Chong MD Primary Care Provider [phone] Leroy Shabazz PharmD Unavailable [phone] Reason for Visit * Reason Comments Med Change Request Encounter Details Date Type Department Care Team ([facility] Contact Info) Description 03/18/2023 Refill [facility] [address] [place], [place] [phone] Autumn Chong MD [address] [place], [place] [phone] Nasal congestion Social History Tobacco Use Types [...] Author Blood Pressure < 150/90 Blood Pressure 148/90(2024 12:57 PM EDT) No Leroy Shabazz, Marija Note: Per JNC-8, Age>60 years old, No history of CKD or DM documented as of this encounter Visit Diagnoses Diagnosis Nasal congestion Other diseases of nasal cavity and sinuses documented in this encounter Additional Health Concerns Assessment Noted Time PHQ-9 Depression Total Score: 0 06/04/19 23 11:23 AM EST documented as of this encounter Care Teams Curator Herbarium Relationship Specialty Start Date End Date Autumn Chong MD [address] [place] [address] PCP - General Family Medicine 09/25/21 Leroy Shabazz, Marija [address] [place] [address] Pharmacist Internal Medicine 10/12/22 documented as of this encounter
== END 2024-09-18 08:07 | disposition home or self-care (01) ==
LOC: HO.MAMMO 08:06
PROVIDERS: PCP Family Medicine; Visit Provider Family Medicine
DX: Z12.31 Encounter for screening mammogram for malignant neoplasm of breast (principal)
CPT/HCPCS: 77063; 77067

== ENCOUNTER → 2024-09-18 08:15 | Outpatient (BNV) | payer OTHER, SELFPAY | PROVIDERS: PCP Family Medicine; Visit Provider Internal Medicine | DX: Z12.31 Encounter for screening mammogram for malignant neoplasm of breast (principal) | CPT/HCPCS: 77063; 77067 ==

== ENCOUNTER → 2024-10-03 07:50 | Outpatient (BNV) | payer OTHER, SELFPAY | PROVIDERS: PCP Family Medicine; Visit Provider Radiology Diagnostic Radiology | DX: M47.812 Spondylosis without myelopathy or radiculopathy, cervical region (principal); M99.61 Osseous and subluxation stenosis of intervertebral foramina of cervical region | CPT/HCPCS: 72141 ==

== ENCOUNTER 2024-10-03 07:58 | Outpatient (REF) | payer OTHER, SELFPAY ==
--- NOTE | ~2024-10-03 | MR_ITS ---
EXAMINATION: MR CERVICAL SPINE WITHOUT CONTRAST CLINICAL INFORMATION: Worsening cervical radiculopathy. COMPARISON: None available. TECHNIQUE: MRI of the cervical spine was obtained using routine sequences without contrast. FINDINGS: Craniocervical junction is intact. No bone marrow STIR signal abnormality. Bone marrow inhomogeneity. Multilevel disc desiccation and marginal osteophyte formation C3 C7 and T2-6. Multilevel Modic type II endplate changes throughout the included axial skeleton. Old, 20% volume loss in the vertebral bodies of the upper thoracic spine. Grade 1 anterolisthesis C3-4 and C6-7. Grade 1 anterolisthesis C4-5 and C5-6. Buckling deformity of the dorsal aspect of the thecal sac secondary to ligamentum flavum hypertrophy at C5-6. Cervical spinal cord signal is normal. Normal position of the cerebellar tonsils. C2-3: No disc herniation. No neuroforamina stenosis. C3-4: Broad-based disc osteophyte compresses formation abutting the cord. Bilateral facet joint hypertrophy. Bilateral neuroforamina stenosis. C4-5: Broad-based disc osteophyte compresses formation resulting in spinal cord deformity and CSF effacement of thecal sac and the ventral aspect. Bilateral neuroforamina narrowing on a degenerative basis. C5-6: Broad-based disc osteophyte complex formation resulting in cord deformity and CSF effacement of the thecal sac. Bilateral neuroforamina stenosis on a degenerative basis. C6-7: Broad-based disc osteophyte compresses formation abutting the cord. No neuroforamina stenosis. C7-T1: Broad-based disc osteophyte complex formation. No cord compression. No neuroforamina narrowing. No prevertebral compartment hematoma, mass or fluid collection. Flow-void signal within the main vessels is normal. Codominant vertebral arteries. Nonspecific prominent cervical lymph nodes. MR/MR cervical spine wo con IMPRESSION: Multilevel cervical thoracic spondylosis resulting in central spinal canal stenosis at C4-5, C5-6 and bilateral neuroforamina stenosis from C3-4 to C5-6 levels. No cord edema and or myelopathy. Electronically signed by: Juancarlos Zamorano MD 10/03/2024 09:02 AM EDT
--- OUTSIDE RECORDS SUMMARY | 2024-10-03 08:01 | XMS_ITS | Encounter Summary ---
Author Organization [employer] Address [address] [facility] [address] [place] [address] Care Team Providers Care Freight Loading Supervisor Name Role Phone Autumn Chong MD Primary Care Provider [phone] Leroy Shabazz PharmD Unavailable [phone] Reason for Visit * Reason Comments Med Change Request Encounter Details Date Type Department Care Team ([facility] Contact Info) Description 03/18/2023 Refill [facility] [address] [place], [place] [phone] Autumn Chong MD [address] [place], [place] [phone] Nasal congestion Social History Tobacco Use Types [...] as of this encounter Plan of Treatment Upcoming Encounters Date Type Department Care Team (Late st Contact Info) Description 11/16/2024 10:00 AM EDT Office Visit [facility] [address] [place], [place] [phone] Autumn Chong MD [address] [place] [phone] documented as of this encounter Goals Goal Patient Goal Type Associated Problems Recent Progress Patient-Stated? Author Blood Pressure < 150/90 Blood Pressure 160/70(2024 10:44 AM EDT) No Leroy Shabazz, Marija Note: Per JNC-8, Age>60 years old, No history of CKD or DM documented as of this encounter Visit Diagnoses Diagnosis Nasal congestion Other diseases of nasal cavity and sinuses documented in this encounter Additional Health Concerns Assessment Noted Time PHQ-9 Depression Total Score: 0 06/04/19 23 11:23 AM EST documented as of this encounter Care Teams Freight Loading Supervisor Relationship Specialty Start Date End Date Autumn Chong MD [address] [place] [address] PCP - General Family Medicine 09/25/21 Leroy Shabazz, Marija [address] [place] [phone] Pharmacist Internal Medicine 10/12/22 documented as of this encounter
--- OUTSIDE RECORDS SUMMARY | 2024-10-03 08:01 | XMS_ITS | Patient Health Record ---
Author Organization [facility] Address [address] [facility] [address] [place] [address] Care Team Providers Care Aviation Safety Equipment Technician Name Role Phone Camrina Messina Primary Care Provider Unavailab le Allergies Allergen (clinical drug ingredient) Drug/Non Drug Allergy documented on EMR Reaction Allergy Type Onset Date Status zolpidem Ambien Unknown Drug Allergy Active Lisinopril Unknown Drug Allergy Active Reason For Referral No Information Medications Medication [...] tablet Orally Once a day Not-Taking Nasal [place] Active Ibuprofen 600 MG 1 tablet with [...] [employer] medicare community plan [address] [address] [place] [address] [phone] Jenny Larkin Self - patient is the [...]
--- OUTSIDE RECORDS SUMMARY | 2024-10-03 08:01 | XMS_ITS | Clinical Summary ---
Author Organization [facility] Address [address] [place] [address] Care Team Providers Care Direct Casting Operator Name Role Phone Unavailable Primary Care Provider [...]
== END 2024-10-03 07:59 | disposition home or self-care (01) ==
LOC: HO.MRI 07:58
PROVIDERS: PCP Family Medicine; Visit Provider Registered Nurse
DX: M54.12 Radiculopathy, cervical region (principal)
CPT/HCPCS: 72141

== ENCOUNTER 2024-11-06 14:04 | Outpatient (AMB) | payer OTHER, SELFPAY ==
--- NOTE | 2024-11-06 13:05 | A.SPINEOV_ITS ---
Intake Visit Reasons: neck pain Intake Note: Ms. Tee Ash is here today c/o neck pain. MRI done @ [facility] [place]. Controls Design Engineer Required: Yes Controls Design Engineer Name: Merline Owen LM Allergies lisinopril Allergy (Intermediate, Verified 08/18/24 22:55) cough zolpidem (Ambien) Allergy (Intermediate, Verified 08/18/24 22:55) droggy Assessment & Plan Assessment & Plan (1) Cervicalgia: Code(s): M54.2 - Cervicalgia Category: Medical Plan This visit was completed with the assistance of an in-person live office historic interpreter (Merline Fiore) who is registered as an historic interpreter here at [facility] [place], but also serves as one of our medical assistants. Dear colleague, Thank you for referring Jenny to our office today. She is a pleasant 74-year-old female comes in today for evaluation of neck pain and right upper extremity tingling. She reports that her neck pain has been ongoing for about 5 years, and is low-grade in nature. She reports that she will occasionally get neck pain throughout the day, but does not experience it all day. She describes it as a generally mild pain, that sounds like it is exacerbated by increased activity. In terms of the tingling she reports in her right upper extremity, she reports no pain associated with it, but does state that it runs down the dorsal surface of her arm into the thumb. She describes this more as a transient irritation that is accompanied by tingling, but denies any actual pain component associated with it. She reports this tingling only has been occurring for about 1-2 months, and denies any known inciting incident. She denies any issues with fine motor movement, dropping objects, or balance. She does state that the pain in her neck will sometimes get to the point where she needs to take Tylenol, but denies any other medication use to help mitigate her pain. She has been to physical therapy in the past for her neck pain, and states that she is scheduled to start another round of physical therapy next week. She denies any history of injections into her cervical spine/neck. PMH: Hypertension, onychomycosis, history of subdural hematoma, fibromyalgia, asthma, osteopenia, mild cognitive impairment, history of kidney stones, hyperlipidemia, anxiety, vertigo, unspecified anemia, tendinitis of right rotator cuff, vitamin-D deficiency, allergic rhinitis, GERD. Social hx: The patient does not smoke, reports no substance use. Medications: Albuterol, Fosamax, amlodipine, vitamin-C, Zyrtec, vitamin D3, Flexeril, diclofenac, Efinaconazole, famotidine, fluticasone, Ketotifen, lidocaine patch, meloxicam, memantine, montelukast, olmesartan, [place] 3 fatty acid (fish oil), omeprazole, saline mist. Allergies: Lisinopril, Ambien Physical exam: The patient has 5/5 strength in her upper and lower extremities. She ambulates well with a non spastic nonantalgic gait. Her reflexes are 1+ hypoactive bilaterally in the patella, but are 2+ normal elsewhere. She has no significant sensational deficits reported to light touch during examination. (- ) bilateral straight leg raise, (-) Lhermitte's, (-) Mcdaniel's, (-) clonus, (-) Babinski's bilaterally. Imaging review: MRI of the cervical spine completed here at [facility] [place] shows diffuse spondylosis of the cervical spine with degenerative disc changes most prominent at C4-5, C5-6. There is moderate-severe right-sided foraminal stenosis at C4-5, and moderate-severe bilateral foraminal stenosis at C5-6, worse on the right hand side. Impression: Jenny is a pleasant 74-year-old female comes in today for evaluation of low-grade neck pain and tingling in her right upper extremity. She reports the neck pain has been going on for a number of years, however the tingling in her right upper extremity recently began about 1-2 months ago without any known inciting incident. It does sound like she is beginning to become symptomatic from the right-sided compression seen at C4-5, C5-6. However, her pain is overall very low-grade in nature, and her radicular symptoms only consist of a mild tingling sensation that is intermittent. For these reasons I do not believe that she has a good surgical candidate to decompress the right-sided nerves at C4-5, C5-6 via ACDF. If, in the future, the patient's pain significantly increases, is accompanied by a significant radicular component, or other myelopathic symptoms, we may consider a repeat cervical MRI and may need to address the C4-6 disc spaces via ACDF. At this time, our recommendation is that she complete a full course of physical therapy and consider a referral to pain management for streroid injections in the cervical spine. I encouraged her to have a low threshold to come back and see us if her symptoms worsen in the future. Thank you for allowing us to care for your patient. The total time spent with this visit with this patient was 45 minutes reviewing history, physical exam, MRI imaging review, and implementation of treatment plan or further diagnostic testing Brandt Day MD,PhD [facility] [place] Coding Level of Care Code New Pt Level 4 (77468) Diagnoses Cervicalgia M54.2
--- OUTSIDE RECORDS SUMMARY | 2024-11-06 14:13 | XMS_ITS | Patient Health Record ---
Author Organization [facility] Address [address] [place] [address] Care Team Providers Care Dye Reel Operator Name Role Phone Carmina Messina Primary Care [...] application to each toenail Externally Once a day; Duration: 90 days 07/24/2021 Active hydrOXYzine HCl 25 MG 1 tablet as needed Orally every 8 hrs PRN itching/nausea; Duration: 10 days 02/05/2021 Not-Taking Advair Diskus Active Acetaminophen 500 MG 1 tablet as needed Orally every 6 hrs; Duration: 30 days prn 02/05/2021 Active Tylenol Not-Taking Lidocaine-Prilocaine 2.5-2.5 % apply 0.5gm to the right foot Externally BID PRN PAIN; Duration: 30 days Active Naftifine HCl 1 % 1 application to the right toenail Externally Once a day; Duration: 28 day(s) 10/21/2020 Not-Taking Omeprazole 40 MG [...] tablet Orally Once a day Not-Taking Nasal [place] Active Ibuprofen 600 MG 1 tablet with food or milk as needed Orally Three times a day; Duration: 30 days prn 02/05/2021 Not-Taking Flovent HFA 110 MCG/ACT 1 puff Inhalatio n Twice a day Active Alejandra-D 24 Hour No t-Taking oxyCODONE HCl 5 MG 1 tablet as needed Orally every 4 hours; Duration: 5 days 02/05/2021 Not-Taking Diclofenac Sodium 1 % 1 gm to the right big toe Externally Twice a day; Duration: 30 days Active Urea 20 % 1 application as needed to the nails Externally Once a day; Duration: 30 days Not-Taking Problems Problem Type SNOMED [...] [employer] care medicare community plan [address] [address] [place] [address] [phone] Jenny Larkin Self - patient is the [...] 1971 Hospitalization History Reason Date(Month/Year) hysterectomy (girl) 1972 (girl) 1969
--- OUTSIDE RECORDS SUMMARY | 2024-11-06 14:13 | XMS_ITS | Encounter Summary ---
Author Organization [employer] Address [address] [place] [address] Care Team Providers Care Utility Sales Representative Name Role Phone Autumn Chong MD Primary Care Provider [phone] Leroy Shabazz PharmD Unavailable [phone] Encounter Details Date Type Department Care Team ([facility] Contact Info) Description 10/04/2024 Results Follow-Up [facility] [address] [place], [place] [phone] [facility] [address] [place], [place] [phone] MR Cervical Spine w/o Contrast Social History Tobacco Use Types Packs/Day Years [...] Description 11/16/2024 10:00 AM EDT Office Visit [facility] [address] [place] [phone] Autumn Chong MD [address] [place] [phone] documented as of this encounter Goals Goal [...] documented as of this encounter Care Teams Utility Sales Representative Relationship Specialty Start Date End Date Autumn Chong MD [address] [place] [address] [phone] PCP - General Family Medicine 09/25/21 Leroy Shabazz, Marija [address] [place] [address] Pharmacist Internal Medicine 10/12/22 documented as of this encounter
--- OUTSIDE RECORDS SUMMARY | 2024-11-06 14:13 | XMS_ITS | Clinical Summary ---
Author Organization [facility] Address [address] [place] [address] Care Team Providers Care Lay Out Carpenter Name Role Phone Unavailable Primary Care Provider [...]
== END 2024-11-06 14:59 | disposition home or self-care (01) ==
LOC: HO.HNS 14:04
PROVIDERS: PCP Family Medicine; Referring Provider Registered Nurse; Visit Provider Physician Assistant
DX: M54.2 Cervicalgia (principal)
CPT/HCPCS: 99204

== ENCOUNTER → 2024-11-06 14:04 | Outpatient (BNVA) | payer OTHER, SELFPAY | PROVIDERS: PCP Family Medicine; Referring Provider Registered Nurse; Visit Provider Physician Assistant | DX: M54.2 Cervicalgia (principal) | CPT/HCPCS: 99202 ==

== ENCOUNTER 2024-12-13 10:00 | Outpatient (RCR) | payer OTHER, SELFPAY | END 2025-01-01 09:46 | disposition home or self-care (01) | LOC: HO.PT 10:00 | PROVIDERS: PCP Family Medicine; Visit Provider Registered Nurse | DX: M62.838 Other muscle spasm (principal); M54.50 Low back pain, unspecified | CPT/HCPCS: 97110; 97140; 97162; 97530; 97535 ==

== ENCOUNTER 2025-03-27 14:57 | Outpatient (REF) | payer OTHER, SELFPAY ==
--- OUTSIDE RECORDS SUMMARY | 2025-03-27 10:20 | XMS_ITS | Encounter Summary ---
Author Organization [employer] Address [address] 7[address] [place] [address] Care Team Providers Care Neuro Psych Sales Specialist Name Role Phone Autumn Chong MD Primary Care Provider [phone] Leroy Shabazz PharmD Unavailable [phone] Reason for Visit * Reason Comments Abdominal Pain Vomiting Encounter Details Date Type Department Care Team (Latest Contact Info) Description 03/27/2025 10:20 AM EST Office Visit [facility] [address] [place] [address] Jose Cheney MD [address] [place] [address] Viral gastroenteritis (Primary Dx); Influenza A; Abdominal pain, vomiting, and diarrhea Social History Tobacco Use Types Packs/Day Years [...] Access Q2 Not on file 08/10/2024 Comments No Sex and Gender Information Value Date Recorded Sex Assigned at Female 02/02/2022 10:23 AM EDT Legal Sex Female 10:23 AM EDT Gender Identity Female 02/02/2022 10:23 AM EDT Sexual Orientation Straight 02/02/2022 10 :23 AM EDT documented as of this encounter Last Filed Vital Signs Vital Sign Reading Time Taken Comments Blood Pressure 134/82 03/27/2025 10:22 AM EST Pulse 82 03/27/2025 10:22 AM EST Temperature 37 C (98.6 F) 03/27/2025 10:22 AM EST Respiratory Rate 18 03/27/2025 10:22 AM EST Oxygen Saturation 96% 03/27/2025 10:22 AM EST Inhaled Oxygen Concentration - - Weight 64.4 kg (142 lb) 03/27/2025 10:22 AM EST Height - - Body Mass Index 25.15 01/22/2025 8:51 AM EDT documented in this encounter Progress Notes * Jose Reza MD - 03/27/2025 10:20 AM EST SUBJECTIVE Jenny Oliveira is a 75 y.o. female who presents for Abdominal Pain and Vomiting. Jenny Tee, 75 years Acute Gastrointestinal Symptoms - Onset of diarrhea, vomiting, and body aches beginning the night before the encounter (March 26, 2025) - Diarrhea occurring every 30 minutes since onset - Associated nausea and chills - Denies fever - Denies blood in stool - Abdominal discomfort described as mild, not painful on palpation - No other symptoms reported - No other household members ill HPI Review of Systems Constitutional: Negative for fever. HENT: Negative for sore throat. Respiratory: Negative for cough and shortness of breath. Cardiovascular: Negative for chest pain. Gastrointestinal: Positive for abdominal pain, diarrhea, nausea and vomiting. Neurological: Negative for headaches. Allergies[1] OBJECTIVE Vitals: 03/27/25 1022 BP: 134/82 BP Location: Right arm Patient Position: Sitting BP Cuff Size: Adult Pulse: 82 Resp: 18 Temp: 98.6 ??F (37 ??C) TempSrc: Temporal SpO2: 96% Weight: 142 lb (64.4 kg) Physical Exam Vitals reviewed. Constitutional: Appearance: Normal appearance. HENT: Head: Normocephalic and atraumatic. Right Ear: External ear normal. Left Ear: External ear normal. Nose: Nose normal. Mouth/Throat: Mouth: Mucous membranes are moist. Eyes: Conjunctiva/sclera: Conjunctivae normal. Cardiovascular: Rate and Rhythm: Normal rate and regular rhythm. Pulmonary: Effort: Pulmonary effort is normal. Breath sounds: Normal breath sounds. Abdominal: General: Abdomen is flat. Bowel sounds are normal. Palpations: Abdomen is soft. Tenderness: There is no abdominal tenderness. Skin: General: Skin is warm. Neurological: Mental Status: She is alert. Mental status is at baseline. Assessment/Plan Problem List Items Addressed This Visit Viral gastroenteritis - Primary - Gastrointestinal symptoms including abdominal pain, vomiting, and diarrhea. No evidence of blood in stool. Symptoms may be associated with influenza A infection. - Ordered blood tests and stool studies to rule out other infectious etiologies. Prescribed antiemetic for nausea. Advised to maintain adequate hydration and monitor for signs of dehydration. Instructed to seek hospital care if unable to tolerate oral fluids. Influenza A - Influenza A infection confirmed by positive test. - Prescribed oseltamivir (Tamiflu) twice daily for five days. Medication sent to preferred pharmacy. Other Visit Diagnoses Abdominal pain, vomiting, and diarrhea Relevant Orders Influenza B (ID NOW Rapid Molecular) (Completed) Influenza A (ID NOW Rapid Molecular) (Completed) POCT Rapid COVID Ag (Completed) This note was drafted using Ambient (AI) technology. The patient/patient's guardian has been informed and has consented to the use of this technology: Yes No future appointments. [1] Allergies Allergen Reactions Cat Dander Dog Epithelium Dog Epithelium (Canis Lupus Familiaris) Lisinopril Cough Pollen Extract Zolpidem Other reaction(s): Drowsy documented in this encounter Miscellaneous Notes * Assessment & Plan Note - Jose Reza MD - 03/27/2025 11:04 AM EST Associated Problem(s): Influenza A - Influenza A infection confirmed by positive test. - Prescribed oseltamivir (Tamiflu) twice daily for five days. Medication sent to preferred pharmacy. * Assessment & Plan Note - Jose Reza MD - 03/27/2025 11:03 AM EST Associated Problem(s): Viral gastroenteritis - Gastrointestinal symptoms including abdominal pain, vomiting, and diarrhea. No evidence of blood in stool. Symptoms may be associated with influenza A infection. - Ordered blood tests and stool studies to rule out other infectious etiologies. Prescribed antiemetic for nausea. Advised to maintain adequate hydration and monitor for signs of dehydration. Instructed to seek hospital care if unable to tolerate oral fluids. documented in this encounter Plan of Treatment Scheduled Orders Name Type Priority Associated Diagnoses Orde r Schedule Comprehensive Metabolic Panel Lab Routine Abdominal pain, vomiting, and diarrhea Ordered: 03/27/2025 CBC auto differential Lab Routine Abdominal pain, vomiting, and diarrhea Expected: 03/27/2025 (Approximate), Expires: 03/27/2026 Lipase Lab Routine Abdominal pain, vomiting, and diarrhea Expected: 03/27/2025, Expires: 03/27/2026 Stool - Gastrointestinal panel Microbiology Routine Influenza A Expected: 03/27/2025 (Approximate), Expires: 03/27/2026 CDiff Gene PCR Lab Routine Influenza A Expected: 03/27/2025 (Approximate), Expires: 03/27/2026 Ova and Parasites Microbiology Routine Influenza A Expected: 03/27/2025 (Approximate), Expires: 03/27/2026 documented as of this encounter Goals Goal Patient Goal Type Associated Problems Recent Progress Patient-Stated? Author Blood Pressure < 150/90 Blood Pressure 134/82(2024 10:22 AM EST) Leroy Ibarra, PharmD Note: Per JNC-8, Age>60 years old, No history of CKD or DM documented as of this encounter Procedures Procedure Name Priority Date/Time Associated Diagnosis Comments POCT INFLUENZA B (ID NOW RAPID MOLECULAR) Routine 03/27/2025 10:40 AM EST Abdominal pain, vomiting, and diarrhea POCT INFLUENZA A (ID NOW RAPID MOLECULAR) Routine 03/27/2025 10:40 AM EST Abdominal pain, vomiting, and diarrhea POCT RAPID COVID ANTIGEN Routine 03/27/2025 10:25 AM EST Abdominal pain, vomiting, and diarrhea documented in this encounter Results * (ABNORMAL) Influenza A (ID NOW Rapid Molecular) (03/27/2025 10:40 AM EST) Influenza A Positive( A) Negative, Indeterminate [facility] Swab 03/27/2025 10:4 0 AM EST Jose Reza MD POINT OF CARE TEST ENTER/EDIT ORDERABLES Edited Result - Final Performing Organization Address [facility]/ZIP Co de Phone Number [facility] [address] [place] [phone] * Influenza B (ID NOW Rapid Molecular) (03/27/2025 10:40 AM EST) Influenza B Negative Negative, Indeterminate [facility] Swab 03/27/2025 10:4 0 AM EST Jose Reza MD POINT OF CARE TEST EN TER/EDIT ORDERABLES Final Result Performing Organization Address [facility]/ZIP Co de Phone Number [facility] [address] [place] [phone] * POCT Rapid COVID Ag (03/27/2025 10:25 AM EST) Rapid COVID Ag Negative Swab 03/27/2025 10:2 5 AM EST Jose Reza MD POINT OF CARE TEST EN TER/EDIT ORDERABLES Final Result documented in this encounter Visit Diagnoses Diagnosis Viral gastroenteritis- Primary Intestinal infection due to other organism, NEC Influenza A Influenza with other respiratory manifestations Abdominal pain, vomiting, and diarrhea documented in this encounter Additional Health Concerns Assessment Noted Time PHQ-9 Depression Total Score: 0 08/11/19 25 11:48 AM EDT documented as of this encounter Care Teams Neuro Psych Sales Specialist Relationship Specialty Start Date End Date Autumn Chong MD [address] [place] [address] PCP - General Family Medicine 09/25/21 Leroy Shabazz, KaroD [address] [place] [address] Pharmacist Internal Medicine 10/12/22 documented as of this encounter
--- OUTSIDE RECORDS SUMMARY | 2025-03-27 16:13 | XMS_ITS | Encounter Summary ---
Author Organization [employer] Address [address] [place] [address] Care Team Providers Care Packing Tractor Machine Operator Name Role Phone Autumn Chong MD Primary Care Provider [phone] Leroy Shabazz PharmD Unavailable [phone] Encounter Details Date Type Department Care Team (Latest Contact Info) Description 03/27/2025 Travel Social History Tobacco Use Types Packs/Day [...] 150/90 Blood Pressure 134/82(2024 10:22 AM EST) No Leroy Shabazz, Marija Note: Per JNC-8, Age>60 years old, No history of CKD or DM documented as of this encounter Visit Diagnoses Not on filedocumented in this encounter Additional Health Concerns Assessment Noted Time PHQ-9 Depression Total Score: 0 08/11/19 25 11:48 AM EDT documented as of this encounter Care Teams Packing Tractor Machine Operator Relationship Specialty Start Date End Date Autumn Chong MD [address] [place] [address] PCP - General Family Medicine 09/25/21 Leroy Shabazz, Marija [address] [place] [address] Pharmacist Internal Medicine 10/12/22 documented as of this encounter
--- OUTSIDE RECORDS SUMMARY | 2025-03-27 16:13 | XMS_ITS | Encounter Summary ---
Author Organization [employer] Address [address] [place] [address] Care Team Providers Care Finished Goods Planner Name Role Phone Autumn Chong MD Primary Care Provider [phone] Leroy Shabazz PharmD Unavailable [phone] Encounter Details Date Type Department Care Team ([facility] Contact Info) Description 11/17/2024 Orders Only [facility] [address] [place], [place] [phone] Autumn Chong MD [address] [place] [address] Social History Tobacco Use Types Packs/Day Years [...] 134/82(2024 10:22 AM EST) No Leroy Shabazz, PharmD Note: Per JNC-8, Age>60 years old, No history of CKD or DM documented as of this encounter Visit Diagnoses Not on filedocumented in this encounter Additional Health Concerns Assessment Noted Time PHQ-9 Depression Total Score: 0 08/11/19 25 11:48 AM EDT documented as of this encounter Care Teams Finished Goods Planner Relationship Specialty Start Date End Date Autumn Chong MD [address] [place] [address] PCP - General Family Medicine 09/25/21 Leroy Shabazz, PharmD [address] [place] [address] Pharmacist Internal Medicine 10/12/22 documented as of this encounter
--- OUTSIDE RECORDS SUMMARY | 2025-03-27 16:13 | XMS_ITS | Encounter Summary ---
Author Organization [employer] Address [address] [place] [address] Care Team Providers Care Principal Product Manager Name Role Phone Autumn Chong MD Primary Care Provider [phone] Leroy Shabazz PharmD Unavailable [phone] Reason for Visit * Reason Comments Med Change Request Encounter Details Date Type Department Care Team ([facility] st Contact Info) Description 03/18/2023 Refill [facility] [address] [place] [address] Autumn Chong MD [address] [place] [address] Nasal congestion Social History Tobacco Use Types [...] Pressure 134/82(2024 10:22 AM EST) No Leroy Shabazz PharmD Note: Per JNC-8, Age>60 years old, No history of CKD or DM documented as of this encounter Visit Diagnoses Diagnosis Nasal congestion Other diseases of nasal cavity and sinuses documented in this encounter Additional Health Concerns Assessment Noted Time PHQ-9 Depression Total Score: 0 06/04/19 23 11:23 AM EST documented as of this encounter Care Teams Principal Product Manager Relationship Specialty Start Date End Date Autumn Chong MD [address] [place] [address] PCP - General Family Medicine 09/25/21 Leroy Shabazz, Marija [address] [place] [address] Pharmacist Internal Medicine 10/12/22 documented as of this encounter
--- OUTSIDE RECORDS SUMMARY | 2025-03-27 16:14 | XMS_ITS | Encounter Summary ---
Author Organization [employer] Address [address] [place] [address] Care Team Providers Care Health Professor Name Role Phone Autumn Chong MD Primary Care Provider [phone] Leroy Shabazz PharmD Unavailable [phone] Reason for Visit * Reason Comments Med Refill Encounter Details Date Type Department Care Team ([facility] st Contact Info) Description 08/17/2022 Refill [facility] [address] [place] [address] Marito Wing MD [address] [place] [address] Gastroesophageal reflux disease, unspecified whether esophagitis present [...] documented as of this encounter Care Teams Health Professor Relationship Specialty Start Date End Date Autumn Chong MD [address] [place] [address] PCP - General Family Medicine 09/25/21 Leroy Shabazz, KaroD [address] [place] [address] Pharmacist Internal Medicine 10/12/22 documented as of this encounter
--- OUTSIDE RECORDS SUMMARY | 2025-03-27 16:14 | XMS_ITS | Encounter Summary ---
Author Organization [employer] Address [address] [place] [address] Care Team Providers Care Resident Associate Name Role Phone Autumn Chong MD Primary Care Provider [phone] Leroy Shabazz PharmD Unavailable [phone] Reason for Visit * Reason Comments Med Refill Encounter Details Date Type Department Care Team ([facility] st Contact Info) Description 05/31/2023 Refill [facility] [address] [place] [address] Rajani Riggs FNP Essential hypertension Social History [...] documented as of this encounter Care Teams Resident Associate Relationship Specialty Start Date End Date Autumn Chong MD [address] [place] [address] PCP - General Family Medicine 09/25/21 Leroy Shabazz, Marija [address] [place] [address] Pharmacist Internal Medicine 10/12/22 documented as of this encounter
--- OUTSIDE RECORDS SUMMARY | 2025-03-27 16:14 | XMS_ITS | Patient Health Record ---
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
--- OUTSIDE RECORDS SUMMARY | 2025-03-27 16:14 | XMS_ITS | Clinical Summary ---
Author Organization [employer] Address [address] [facility] [place] [address] Care Team Providers Care Distributed Energy Systems Consultant Name Role Phone Autumn Chong MD Primary Care Provider [phone] Leroy Shabazz PharmD Unavailable [phone] Allergies Active Allergy Reactions Criticality Noted Date Comments Cat Dander High 12/17/2015 Dog Epithelium High 12/17/2015 Dog Epithelium (Canis Lupus Familiaris) High 12/17/2015 Lisinopril Cough 09/25/2021 Pollen Extract 04/01/2022 Zolpidem 09/25/2021 Other reaction(s): Drowsy Medications Apple Cider Vinegar 500 MG tablet Patient reports buying OTC Active omega-3 (Fish Oil) 1200 MG capsule Patient reports purchasing OTC Active SALINE MIST 0.65 % nasal sprayIndications: Nasal congestion USE 1-2 SPRAY IN EACH NOSTRIL EVERY 2-3 HOURS NEEDED FOR NASAL CONGESTION 44 mL 1 3 Active ascorbic acid (Vitamin C) 1000 MG tablet Take 1 tablet by mouth once daily 90 tablet 3 3 Active Blood Pressure Monitor kitIndications:Es sential hypertension Use to check blood pressure daily as directed 1 kit 4 Active Jublia 10 % solutionIndicatio ns:Onychomycosis APPLY TO AFFECTED TOENAILS EVERY DAY FOR 48 WEEKS Strength: 10 % 4 mL 2 4 Active famotidine (Pepcid) 40 MG tablet [...] drop at noon. 5 mL 5 Active cholecalciferol (Vitamin D-3) 25 MCG (1000 UT) tablet Take 1 tablet (25 mcg) by mouth Once per day. 90 tablet 3 5 Active alendronate (Fosamax) 70 MG tabletIndications :Osteopenia of multiple sites TAKE 1 TABLET BY MOUTH EVERY WEEK IN THE MORNING AT LEAST 30 MIN BEFORE 1ST FOOD DRINK OR MED OF DAY 12 tablet 3 5 Active albuterol 108 (90 Base) MCG/ACT inhalerIndication s:Mild intermittent asthma without complication Inhale 2 puffs every 4 (four) hours if needed for wheezing or shortness of breath. 8.5 g 1 5 Active Fluticasone-Salme terol (Advair Diskus) 250-50 MCG/ACT aerosol powder Inhale 1 puff 2 times daily. 1 each 11 5 Active olmesartan (BENIcar) 40 MG tabletIndications :Essential hypertension TAKE 1 TABLET BY MOUTH EVERY DAY IN THE MORNING 90 tablet 3 5 Active cyclobenzaprine (Flexeril) 5 MG tabletIndications :Muscle spasm Take 1 tablet (5 mg) by mouth if needed at bedtime for muscle spasms. 15 tablet 5 09/21/19 26 Active meloxicam (Mobic) 15 MG tabletIndications :Cervical radiculopathy Take 1 tablet (15 mg) by mouth Once per day. 15 tablet 5 09/21/19 26 Active cetirizine (ZyrTEC) 10 MG tablet TAKE 1 TABLET BY MOUTH EVERY DAY 90 tablet 5 Active fluticasone (Flonase) 50 MCG/ACT nasal sprayIndications: Allergic rhinitis, unspecified seasonality, unspecified trigger SPRAY 1 SPRAY INTO EACH NOSTRIL EVERY DAY 32 mL 2 5 Active omeprazole (PriLOSEC) [address] capsuleIndication s:Gastro-esophage al reflux disease without esophagitis Take 1 capsule (20 mg) by mouth before breakfast. Do not crush or chew. 90 capsule 5 Active tiZANidine (Zanaflex) 2 MG tablet Take 1 tablet (2 mg) by mouth every 8 (eight) hours if needed for muscle spasms. 60 tablet 1 5 Active lidocaine (Lidoderm) 5 % patchIndications: Muscle spasm,Chronic bilateral low back pain without sciatica Apply 1 patch topically Once per day. Remove & discard patch within 12 hours or as directed by MD. 30 patch 1 5 11/17/19 26 Active amLODIPine-atorva statin (Caduet) 10-10 MG tablet Take 1 tablet by mouth Once per day. 30 tablet 5 11/17/19 26 Active doxepin (SINEquan) 10 MG capsule Take 1 capsule (10 mg) by mouth if needed at bedtime for sleep. 30 capsule 5 11/18/19 26 Active diclofenac sodium 3 % gelIndications:Ri ght foot pain,Plantar fasciitis of right foot apply by topical route once or twice a day as needed for the area of pain (heel) Strength: 3 % 60 g 5 Active gabapentin (Neurontin) 100 MG capsule Take 1 capsule (100 mg) by mouth 2 times daily. 60 capsule 1 5 12/10/19 26 Active furosemide (Lasix) 20 MG tablet Take 0.5 tablets (10 mg) by mouth Once per day. 15 tablet 11 5 01/23/20 26 Active ondansetron (Zofran) 4 MG tabletIndications :Abdominal pain, vomiting, and diarrhea Take 1 tablet (4 mg) by mouth every 8 (eight) hours if needed for nausea or vomiting for up to 7 days. 20 tablet 5 04/03/20 25 Active oseltamivir (Tamiflu) 75 MG capsuleIndication s:Influenza A Take 1 capsule (75 mg) by mouth 2 times daily for 5 days. 10 capsule 5 04/01/20 25 Active Active Problems Problem Noted Date Diagnosed Date Viral gastroenteritis 03/27/2025 Assessment & Plan (03/27/2025 11:03 AM EST): - Gastrointestinal symptoms including abdominal pain, vomiting, [...] unable to tolerate oral fluids. Influenza A 03/27/2025 Assessment & Plan (03/27/2025 11:04 AM EST): - Influenza A infection confirmed by positive test. - Prescribed oseltamivir (Tamiflu) twice daily for five days. Medication sent to [facility] pharmacy. Cervicogenic headache 12/11/2024 Assessment & Plan (12/11/2024 9:10 AM EDT): Orders: traMADol (Ultram) 50 MG tablet; Take 1 tablet (50 mg) by mouth every 8 (eight) hours if needed for severe pain for up to 5 days. Chronic right shoulder pain 08/13/2024 Assessment & Plan (08/13/2024 6:12 PM EDT): - likely tendinopathy, possibly cervical radiculopathy - good ROM - recently received ketorolac IM on 08/08/24 - consider cervical MRI Vitamin D deficiency 08/10/2024 Assessment & Plan (08/13/2024 6:13 PM EDT): - continue vitamin D supplementation Tendinosis of right rotator cuff 08/08/2024 Assessment [...] today, order labs Encouraged increased PO water/fluids Anxiety 10/15/2023 Assessment & Plan (11/16/2024 4:09 PM EDT): - She has retired and reports insomnia - She sees a neurologist for MCI / TBI / subdural hematoma - she has tried acupuncture in the past for pain - she has tried melatonin and mirtazapine, and she does not want to take these medications because it is too sedating. - trial of doxepine 6 mg qhs Assessment & Plan (10/15/2023 7:09 PM EDT): [...] as needed Dyslipidemia 07/06/2023 Assessment & Plan (11/16/2024 3:38 PM EDT): - current medication: atorvastatin 10 mg at bedtime (as Caduet, a combination with amlodipine); consider changing to atorvastatin 20 mg qhs - last lipid profile 05/11/24 - continue working on lifestyle modifications - recheck lipid profile and hepatic profile Assessment & Plan (08/13/2024 6:16 PM EDT): - current medication: atorvastatin 10 mg at bedtime (as Caduet, a combination with amlodipine); consider changing to atorvastatin 20 mg qhs - last lipid profile 05/11/24 - continue working on lifestyle modifications - recheck lipid profile and hepatic profile Assessment & Plan (05/13/2024 7:41 AM EST): [...] year Cervical radiculopathy 12/31/2022 Assessment & Plan (12/09/2024 9:18 AM EDT): -Will give Toradol injection today, will refer to trigger points injection clinic. -Recommended to go back to acupuncture, patient did not find it useful last time. -Advised to continue stretching exercises at home and attending PT -Apply heat to affected area + diclofenac gel (lidocaine patch not covered) -Continue Tylenol and Flexeril twice daily + meloxicam daily -Start gabapentin 100 mg twice daily, hold for sedation and titrate up as needed by PCP -Recommended to avoid heavy lifting, or use of upper extremities. - Follow-up with PCP Assessment & Plan (11/16/2024 4:07 PM EDT): - MRI in September 2024: degenerative disc changes most prominent at the C4-5, and C5-6. Moderate to severe right-sided foraminal stenosis at the C4-5, and moderate to severe bilateral foraminal stenosis at the C5-6, worse on the right hand side - seen by spine center provider on 11/06/24, not a surgical candidate, recommended PT, then consider pain management referral, or repeat MRI - starting PT soon - Rx lidocaine patch - Treatment Hx: APAP; cyclobenzaprine; meloxicam which were ineffective - Patient has already tried diclofenac gel Assessment & Plan (08/13/2024 6:06 PM EDT): Pt is not interested in invasive Tx -continue conservative management -consider MRI if worsening symptoms -continue acupuncture Assessment & Plan (03/31/2023 4:12 PM EST): Pt is not interested in invasive Tx -continue conservative management -consider MRI if worsening symptoms -continue acupuncture Assessment & Plan (12/31/2022 10:44 AM EDT): Pt is not interested in invasive Tx -continue conservative management -consider MRI, if SxS worsens -continue acupuncture Chronic toe pain, right foot 12/31/2022 Assessment & Plan (10/14/2023 11:00 AM EDT): -previously seeing bulk sausage casing tier off, recommended to follow-up Overweight 09/20/2022 Allergic rhinitis [...] Mild cognitive impairment 09/09/2022 Assessment & Plan (11/20/2024 5:24 PM EDT): -Seen by neurologist on 09/01/23, for 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 hematoma -Continue memantine 5 mg BID, questionable medication adherence -Previously on donepezil 10 mg daily, which seems to be discontinued -Will request note from her neurologist Assessment & Plan (08/13/2024 6:13 PM EDT): -Seen by neurologist on 09/01/23, for 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 Will try in near future again. -Restart fluticasone propionate / salmeterol (Advair ) since it was more effective than fluticasone (Arnuity ) for her. -Continue albuterol prn Assessment & Plan (05/25/2024 12:00 PM EST): [...] of subdural hematoma 03/11/2022 Assessment & Plan (11/20/2024 5:23 PM EDT): - [place] - Initial CT showed left frontoparietal subdural hematoma - Evaluated by neurosurgeon and treated with 21 days of tranexamic acid. - Follow-up CT showed resolving hematoma - Seen by neurologist for evaluation of MCI / possible post-concussion syndrome Assessment & Plan (01/29/2024 6:16 AM EDT): [...] Assessment & Plan (06/03/2022 4:03 PM EST): [place] [address] [place] Initial CT showed left frontoparietal subdural hematoma Evaluated by neurosurgeon and treated with 21 days of tranexamic acid. Follow-up CT showed resolving hematoma Referred to neurologist for evaluation of MCI / possible post-concussion syndrome; upcoming appt on 06/16/22. Assessment & Plan (04/01/2022 10:17 AM EST): Injury [place] Dec [place] Evaluated by neurosurgeon and treated with 21 days of tranexamic acid. Follow-up CT 01/22/22 showed resolving SDH No current concerning symptoms Assessment & Plan (03/11/2022 4:06 PM EST): Injury [place] [address] [place] [address] [place] Initial CT showed left frontoparietal subdural hematoma Evaluated by neurosurgeon and treated with 21 days of tranexamic acid. Follow-up CT showed resolving hematoma Refer to neurologist for evaluation of MCI / possible post-concussion syndrome Essential hypertension 10/27/2021 Assessment & Plan (11/17/2024 10:52 AM EDT): -Goal BP < 130 per ACC/AHA guideline -BP is labile, home BP is sometimes high. Questionable medication adherence. -Continue checking BP at home -Continue Olmesartan 40 mg daily, questionable medication adherence -Increase Amlodipine from 5 mg to 10 mg (combo with atorvastatin 10 mg as [...] caused hot flashes, and Hydrochlorothiazide was discontinued - This regimen may be confusing to patient. Will schedule for a visit for BP check and medication reconciliation with our nurse. If Systolic BP > 140 and/or questionable medication adherence, will refer to CD[facility]. Assessment & Plan (08/13/2024 6:10 PM EDT): -Goal BP < 150/90 per [...] and Hydrochlorothiazide was discontinued Assessment & Plan (05/25/2024 12:02 PM EST): [...] Assessment & Plan (12/31/2022 10:50 AM EDT): Goal BP < 150/90 per JNC-8, < 130/80 per ACC/AHA guideline BP at goal today, home BP are within acceptable range Start Olmesartan 20 mg at QHS Continue working on lifestyle modifications Discontinue Amlodipine, hydrochlorothiazide Continue checking BP at home Treatment Hx: Lisinopril was discontinued due to cough; Losartan was discontinued due to frequent urination ; amlodipine is discontinued due to Hot-Flashes and Hydrochlorothiazide was discontinued Follow up in 3-4 mo or sooner prn Assessment & Plan (09/20/2022 6:28 PM EDT): Goal BP < 150/90 per JNC-8, < 130/80 per ACC/AHA guideline BP at goal today, home BP are within acceptable range Continue working on lifestyle modifications Continue amlodipine 5 mg daily Continue hydrochlorothiazide 12.5 mg daily Continue checking BP at home Treatment Hx: Lisinopril was discontinued due to cough; Losartan was discontinued due to frequent urination Follow up in 3-4 mo or sooner prn Assessment & Plan (06/04/2022 2:39 AM EST): Goal BP < 150/90 per JNC-8, < 130/80 per ACC/AHA guideline BP at goal today, home BP are within acceptable range Continue working on lifestyle modifications Continue amlodipine 5 mg daily Continue hydrochlorothiazide 12.5 mg daily Continue checking BP at home Treatment Hx: Lisinopril was discontinued due to cough; Losartan was discontinued due to frequent urination Assessment & Plan (04/01/2022 10:15 AM EST): Goal BP < 150/90 per JNC-8, < 130/80 per ACC/AHA guideline Continue working on lifestyle modifications Continue amlodipine 5 mg daily Continue checking BP at home Treatment Hx: Lisinopril was discontinued due to cough; Losartan was discontinued due to frequent urination Advised to monitor BP at home to ensure well controlled before surgery Call [facility] office with any questions or concerns Assessment & Plan (03/11/2022 4:10 PM EST): Goal BP < 150/90 per JNC-8, < 130/80 per ACC/AHA guideline Continue working on lifestyle modifications Continue amlodipine 5 mg daily Continue checking BP at home Treatment Hx: Lisinopril was discontinued due to cough; Losartan was discontinued due to frequent urination Onychomycosis 10/27/2021 Assessment & Plan (07/17/2023 7:39 PM EDT): -efinaconazole solution Resolved Problems Problem Noted Date Diagnosed Date Resolved Date Anemia 11/17/2023 11/16/2024 Overview (11/17/2023): Three point Hb drop compared to last year's (10/2022) Order cbc and ferritin to compare with similar lab FU prn Subdural hematoma 06/03/2022 12/31/2022 Assessment & Plan (12/31/2022 4:05 AM EDT): Injury [place] Dec [address] [place] [address] [place] Initial CT showed left frontoparietal subdural hematoma Evaluated by neurosurgeon and treated with 21 days of tranexamic acid. Follow-up CT showed resolving hematoma Referred to neurologist for evaluation of MCI / possible post-concussion syndrome Seen by neurologist. Prescribed Donepezil for MCI. Assessment & Plan (09/20/2022 6:28 PM EDT): Injury [place] Dec [address] [place] [address] [place] Initial CT showed left frontoparietal subdural hematoma Evaluated by neurosurgeon and treated with 21 days of tranexamic acid. Follow-up CT showed resolving hematoma Referred to neurologist for evaluation of MCI / possible post-concussion syndrome Seen by neurologist. Prescribed Donepezil for MCI. Assessment & Plan (06/03/2022 4:02 PM EST): -Injury in Dec 2021 while in a cruise trip -01/15/[address] showed subdural hematoma. She was sent to [facility] ED from the radiology department for further evaluation. She was then transferred to [facility] ED for neurosurgery consult. In [facility] ED, she had another CT scan which showed left frontoparietal hematoma 1.3 cm. No subarachnoid hemorrhage. Neurosurgery team came to see the patient in ED, and was advised to take tranexamic acid for 21 days and given an outpatient follow-up appt. -Seen by [facility] neurosurgeon on 01/22/22 after having a repeat MRI, which showed decreased subdural hematoma. She was given reassurance. -Referred to neurologist due to forgetfulness after the injury Encounters Date Type Department Care Team Description 03/27/2025 10:20 AM EST Office Visit [facility] [address] [place] [phone] Jose Cheney MD Viral gastroenteritis (Primary Dx); Influenza A; Abdominal pain, vomiting, and diarrhea 03/27/2025 Travel 02/07/2025 Telephone [facility] [address] [place] [phone] Deborah Yang MA 01/22/2025 9:00 AM EDT Office Visit [facility] [address] [address] Ritika Mayo MD PVD (peripheral vascular disease) (Primary Dx) 01/22/2025 Travel from Last 3 Months Immunizations Immunization Administration Dates Next Due Influenza High-dose Quadriva [...] (142 lb) 03/27/2025 10:22 AM EST Height 160 cm (5' 3 ) 01/22/2025 8:51 AM EDT Body Mass Index 25.15 01/22/2025 8:51 AM EDT Plan of Treatment Health Maintenance Due Date Last Done Comments CT Colonography 1950 FIT DNA/Cologuard 1950 FIT 1950 FOBT 1950 Sigmoidoscopy 1950 Hepatitis C Screening 01/19/1968 Dental X-Ray: Bitewings 07/16/2018 07/16/19, 07/05/2014, 11/02/2012, Additional history exists Dental Oral Exam 02/22/2022 08/21/2021, 01/2020, 07/15/2017, Additional history exists Dental Prophylaxis 02/22/2022 08/21/2021, 0 07/15/2017, 01/07/2017, Additional history exists Dental X-Ray: Full Mouth 08/22/2024 08/21/2021, 09/04 Colonoscopy 09/02/2024 09/02/2021 Colorectal Cancer Screening 09/02/2024 COVID-19 Vaccine ( season) 2024 01/27/2024, 03/30/2023, 03/12/2022, Additional history exists Influenza Vaccine (#1) 2024 , 12/31/2022, 01/05/2022, Additional history exists RSV Patients and Patients Aged 60 years or older (1 - 1-dose 75+ series) 2025 Alcohol/Substance Use Screening 08/10/2025 08/10/2024 Depression Screening 08/10/2025 08/10/2024, 08/11/19 25 SDOH Screening 08/10/2025 08/10/2024 Tobacco Screening 03/27/2026 03/27/2025 Lipid Panel 05/11/2029 05/11/2024, 03/06, 06/03/2022, Additional history exists DTaP/Tdap/Td Vaccines (4 - Td or Tdap) 10/25/2030 10/25/2020, 03/22/2019, 03/13/2016 Pneumococcal Vaccine: 50+ Years Completed 03/18/2021, 10/25/2020, 03/22/2019, Additional history exists Zoster Vaccines Completed 06/04/2021, 10/04, 03/22/2019 HIB Vaccines Aged Out No longer eligi [...] patient's age to complete this topic Meningococcal B Vaccine Aged Out No l onger eligible based on patient's age to complete [...] Priority Date/Time Associated Diagnosis Comments POCT INFLUENZA A (ID NOW RAPID MOLECULAR) Routine 03/27/2025 10:40 AM EST Abdominal pain, vomiting, and diarrhea POCT INFLUENZA B (ID NOW RAPID MOLECULAR) Routine 03/27/2025 10:40 AM EST Abdominal pain, vomiting, and diarrhea POCT RAPID COVID ANTIGEN Routine 03/27/2025 10:25 AM EST Abdominal pain, vomiting, and diarrhea LIPID PANEL WITH REFLEX TO DIRECT LDL Routine 05/11/2024 12:32 PM EST Dyslipidemia HM COLONOSCOPY Routine 09/02/2021 PROPHYLAXIS - ADULT [...] NOW Rapid Molecular) (03/27/2025 10:40 AM EST) Pathologist [facility] Influenza B Negative Negative, Indeterminate [facility] Swab 03/27/2025 10:4 0 AM EST Jose Reza MD POINT OF CARE TEST EN TER/EDIT ORDERABLES Final Result Performing Organization Address City/[facility]/ZIP Co de Phone Number [facility] [address] [place] [phone] * (ABNORMAL) Influenza A (ID NOW Rapid Molecular) (03/27/2025 10:40 AM EST) Pathologist [facility] Influenza A Positive( A) Negative, Indeterminate [facility] Swab 03/27/2025 10:4 0 AM EST Jose Reza MD POINT OF CARE TEST ENTER/EDIT ORDERABLES Edited Result - Final Performing Organization Address City/[facility]/ZIP Co de Phone Number [facility] [address] [place] [phone] * POCT Rapid COVID Ag (03/27/2025 10:25 AM EST) Pathologist [facility] Rapid COVID Ag Negative Swab 03/27/2025 10:2 5 AM EST Jose Reza MD POINT OF CARE TEST EN TER/EDIT ORDERABLES Final Result * Lipid Panel with Reflex to Direct LDL (05/11/2024 12:32 PM EST) [facility] Triglycerides 101 <150 mg/dL [facility] Comment:Desirable Triglyceri de: less than 150 mg/dLBorderline High Triglyceride 150-199 mg/dLHigh Triglyceride: 200-499 mg/dLVery High Triglyceride: greater than or equal to 5OO mg/dL Cholesterol 123 <200 mg/dL [facility] Comment:Desirable Cholestero l: less than 200 mg/dLBorderline High Cholesterol: 200-239 mg/dLHigh Cholesterol: greater than 239 mg/dL LDL Cholesterol Calculated 59 <100 mg/dL [facility] Comment:Desirable LDL: less than 100 mg/dLNear Optimal/Above Optimal LDL: 110- 129 mg/dLBorderline High LDL: 130-159 mg/dLHigh LDL: 160-189 mg/dLVery High LDL: greater than or equal to 190 mg/dL HDL Cholesterol 44 >40 mg/dL [facility] Comment:Desirable HDL: great er than 40 mg/dL Note: This HDL assay may give artificially low results in patients with liver disease. Blood 05/11/2024 12:3 2 PM EST 05/11/2024 12:57 PM EST Autumn Chong MD LAB BLOOD ORDERABLES Final Resul t [facility] [address] [place], [place] [phone] * (ABNORMAL) Colonoscopy (09/02/2021) Colonoscopy Abnormal( A) Normal Comment:3 polyps, tubular ad enoma. Repeat in [address] Tristan. 09/02/2021 Historical Provider HEALTH MAINTENANCE Edited Result - Final from Last 3 Months or Most Recently Relevant to Health Maintenance Insurance [facility] [address] [employer] - [facility] [employer] Care Teams Distributed Energy Systems Consultant Relationship Specialty Start Date End Date Autumn Chong MD [address] [place] [address] PCP - General Family Medicine 09/25/21 Leroy Shabazz, KaroD [address] [place] [address] Pharmacist Internal Medicine 10/12/22
--- OUTSIDE RECORDS SUMMARY | 2025-03-27 16:14 | XMS_ITS | Encounter Summary ---
Author Organization [employer] Address [address] [place] [address] Care Team Providers Care Registered Safety Engineer Name Role Phone Autumn Chong MD Primary Care Provider [phone] Leroy Shabazz PharmD Unavailable [phone] Encounter Details Date Type Department Care Team ([facility] Contact Info) Description 05/11/2024 Orders Only [facility] [address] [place], [place] [phone] Autumn Chong MD [address] [place] [address] Social History Tobacco Use Types Packs/Day Years [...] documented as of this encounter Care Teams Registered Safety Engineer Relationship Specialty Start Date End Date Autumn Chong MD [address] [place] [address] PCP - General Family Medicine 09/25/21 Leroy Shabazz, PharmD [address] [place] [address] Pharmacist Internal Medicine 10/12/22 documented as of this encounter
--- OUTSIDE RECORDS SUMMARY | 2025-03-27 16:14 | XMS_ITS | Encounter Summary ---
Author Organization [employer] Address [address] [facility] [address] [place] [address] Care Team Providers Care Golf Sales Associate Name Role Phone Autumn Chong MD Primary Care Provider [phone] Leroy Shabazz PharmD Unavailable [phone] Encounter Details Date Type Department Care Team (Latest Contact Info) Description 08/21/2021 Abstract [facility] CONVERSIONS Dental, Provider, DDS Social History Tobacco [...] on filedocumented in this encounter Care Teams Golf Sales Associate Relationship Specialty Start Date End Date Autumn Chong MD [address] [place] [address] PCP - General Family Medicine 09/25/21 Leroy Shabazz, PharmD [address] [place] [address] Pharmacist Internal Medicine 10/12/22 documented as of this encounter
--- OUTSIDE RECORDS SUMMARY | 2025-03-27 16:14 | XMS_ITS | Clinical Summary ---
Author Organization [facility] Prior to 09/02/24 Address [address] [place] [address] Care Team Providers Care Energy Trading Analyst Name Role Phone Unavailable Primary Care Provider [...]
--- OUTSIDE RECORDS SUMMARY | 2025-03-27 16:14 | XMS_ITS | Encounter Summary ---
Author Organization [employer] Address [address] [facility] [address] [place] [address] Care Team Providers Care Disk And Tape Machine Tender Name Role Phone Autumn Chong MD Primary Care Provider [phone] Leroy Shabazz PharmD Unavailable [phone] Reason for Visit * Reason Onset Date Comments Nurse Triage 07/11/2024 Encounter Details Date Type Department Care Team ([facility] st Contact Info) Description 07/11/2024 Telephone [facility] [address] [place], [place] [phone] Autumn Chong MD [address] [place] [address] Nurse Triage Social History Tobacco Use Types [...] documented as of this encounter Care Teams Disk And Tape Machine Tender Relationship Specialty Start Date End Date Autumn Chong MD [address] [place] [address] PCP - General Family Medicine 09/25/21 Leroy Shabazz, PharmD [address] [place] [id number] Pharmacist Internal Medicine 10/12/22 documented as of this encounter
--- OUTSIDE RECORDS SUMMARY | 2025-03-27 16:14 | XMS_ITS | Encounter Summary ---
Author Organization [employer] Address [address] [place] [address] Care Team Providers Care Impact Retail Service Merchandiser Name Role Phone Autumn Chong MD Primary Care Provider [phone] Leroy Shabazz PharmD Unavailable [phone] Encounter Details Date Type Department Care Team ([facility] Contact Info) Description 04/04/2024 Orders Only [facility] [address] [place], [place] [phone] Les Aquino MD [address] [place] [address] Social History Tobacco Use Types Packs/Day Years [...] documented as of this encounter Care Teams Impact Retail Service Merchandiser Relationship Specialty Start Date End Date Autumn Chong MD [address] [place] [address] PCP - General Family Medicine 09/25/21 Leroy Shabazz, PharmD [address] [place] [address] Pharmacist Internal Medicine 10/12/22 documented as of this encounter
[2025-03-27 16:21] LABS: MANUAL DIFF FLAG NO
[2025-03-27 16:23] LABS: Hematocrit 33.6 % (37.0-47.0); Hemoglobin 10.2 g/dl (12.0-16.0); Imm Gran Abs Auto 0.02 X10*3/uL (0.00-0.03); Imm Gran Pct Auto 0.4 % (0.0-0.4); Lymphocytes Absolute Auto 1.0 X10*3/uL (1.2-4.9); Mean Corpuscular HGB Conc 30.4 g/dl (31.0-35.0); Mean Corpuscular Hemoglobin 24.5 pg (27.0-33.0); Mean Corpuscular Volume 80.6 fL (80.0-98.0); NRBC Abs Auto 0.000 X10*3/uL (0.0-0.012); NRBC Pct Auto 0.0 /100WBC (0.0-0.2); Platelet Count 269 X10*3/uL (160-400); Red Blood Count 4.17 X10*6/uL (4.20-5.50); White Blood Count 5.3 X10*3/uL (4.8-10.8)
[2025-03-27 16:34] LABS: Alanine Aminotransferase 27 U/L (0-31); Albumin Level 4.1 g/dL (3.5-5.0); Alkaline Phosphatase 77 U/L (39-117); Anion Gap 12 (12-20); Aspartate Amino Transferase 29 U/L (5-31); Blood Urea Nitrogen 14 mg/dL (9-16); Calcium 8.6 mg/dL (8.4-10.2); Carbon Dioxide 23 mmol/L (22-29); Chloride 110 mmol/L (96-108); Estimated Glomerular Filt Rate > 60; Lipase 28 U/L (8-78); Potassium 3.5 mmol/L (3.3-5.1); Sodium 141 mmol/L (135-145); Total Protein 7.1 g/dL (6.5-8.0)
== END 2025-03-27 14:58 | disposition home or self-care (01) ==
LOC: HO.HHCL 14:57
PROVIDERS: PCP Family Medicine; Visit Provider Internal Medicine
DX: R10.9 Unspecified abdominal pain (principal); R11.10 Vomiting, unspecified; R19.7 Diarrhea, unspecified; E55.9 Vitamin D deficiency, unspecified
CPT/HCPCS: 36415; 80053; 82306; 83690; 85025